=== PATIENT | female | born 1940 | race Caucasian/White ===

== ENCOUNTER 2018-01-07 14:29 | Inpatient (IN) | payer MEDICARE ==
[~2018-01-07] VITALS: Ht 162.6 cm; Wt 91.6 kg
[2018-01-07 15:37] LABS: BASOPHILS 1.3 % (0-2); EOSINOPHILS 16.6 % (0-7); HEMATOCRIT 39.1 % (36.0-48.0); HEMOGLOBIN 12.7 g/dL (12-16); IMMATURE GRANULOCYTES 0.3 % (0-5); LYMPHOCYTES 16.9 % (15-50); MCH 29.5 pg (26.0-34.0); MCHC 32.5 g/dL (31.0-37.0); MCV 90.9 fL (80.0-100.0); MEAN PLATELET VOLUME 10.5 fL (7.4-10.4); MONOCYTES 6.9 % (2-11); PLATELET COUNT 122 10x3/uL (130-400); RDW 13.2 % (11.5-14.5)
[2018-01-07 15:50] LABS: ALBUMIN 3.7 g/dL (3.4-5.0); ANION GAP 10.8 mmol/L (8-16); BILIRUBIN - TOTAL 0.22 mg/dL (0.2-1.3); CALCIUM 9.1 mg/dL (8.5-10.1); CARBON DIOXIDE 29.6 mmol/L (21.0-32.0); CREATININE - SERUM 0.8 mg/dL (0.6-1.3); POTASSIUM - SERUM 4.4 mmol/L (3.5-5.1)
[2018-01-07 15:59] VITALS: BP 123/72; BMI 34.7
[2018-01-07] MEDS ORDERED: GLUCOPHAGE500 MG PO (19:33)
[2018-01-07] MEDS ORDERED: GLIPIZIDE10 MG PO (19:34)
[2018-01-07] MEDS ORDERED: NORVASC10 MG PO (19:34)
[2018-01-07] MEDS ORDERED: TIROSINT137 MCG PO (19:35)
[2018-01-07] MEDS ORDERED: SINGULAIR10 MG PO (19:36)
[2018-01-07] MEDS ORDERED: OMEPRAZOLE20 M1 PO (19:36)
[2018-01-07] MEDS ORDERED: LIPITOR20 MG PO (19:36)
[2018-01-07] MEDS ORDERED: COZAAR25 MG PO (19:37)
[2018-01-07 20:00] VITALS: BP 104/74
[2018-01-08] VITALS: BP 122/58
[2018-01-08 04:00] VITALS: BP 112/79
[2018-01-08 05:08] LABS: BASOPHILS 0.4 % (0-2); EOSINOPHILS 0.2 % (0-7); HEMOGLOBIN 11.3 g/dL (12-16); IMMATURE GRANULOCYTES 0.2 % (0-5); MCH 29.2 pg (26.0-34.0); MCHC 32.3 g/dL (31.0-37.0); MCV 90.4 fL (80.0-100.0); MONOCYTES 4.2 % (2-11); RBC 3.87 10x6/uL (4.00-5.40); WBC 5.5 10x3/uL (4.8-10.8)
[2018-01-08 05:15] LABS: PLATELET COUNT 288 10x3/uL (130-400)
[2018-01-08 05:28] LABS: APTT 30.4 SECONDS (22.8-39.4); D-DIMER-QUANTITATIVE 0.72 ug/mLFEU (0.20-0.54)
[2018-01-08 05:42] LABS: ALBUMIN 2.9 g/dL (3.4-5.0); ALKALINE PHOSPHATASE 60 U/L (46-116); CALCIUM 8.4 mg/dL (8.5-10.1); CARBON DIOXIDE 27.3 mmol/L (21.0-32.0); CHLORIDE - SERUM 106 mmol/L (98-107); CREATININE - SERUM 0.7 mg/dL (0.6-1.3); LDH 147 U/L (81-234); POTASSIUM - SERUM 4.4 mmol/L (3.5-5.1); PRO BNP 222 pg/mL (0-450); PROTEIN - SERUM 6.1 g/dL (6.4-8.2); SODIUM 138 mmol/L (136-145); UREA NITROGEN 12 mg/dL (7-18); eGFR NON AFRICAN AMERICAN 86 mL/min (90-120)
[2018-01-08 05:47] LABS: ALT (SGPT) 10 U/L (10-68); CALC OSMOLALITY 281 mosm/kg (275-300); GLUCOSE 201 mg/dL (74-106)
[2018-01-08 08:50] VITALS: Ht 162.6 cm; Wt 91.6 kg
[2018-01-08 09:13] VITALS: BP 136/48
[2018-01-08 12:34] VITALS: BP 133/61
[2018-01-08 16:38] VITALS: BP 136/56
[2018-01-08 20:30] VITALS: BP 130/54
[2018-01-09 04:30] VITALS: BP 130/64
[2018-01-09 06:12] LABS: BASOPHILS 0.5 % (0-2); EOSINOPHILS 1.5 % (0-7); HEMATOCRIT 32.3 % (36.0-48.0); HEMOGLOBIN 10.5 g/dL (12-16); IMMATURE GRANULOCYTES 0.2 % (0-5); LYMPHOCYTES 23.6 % (15-50); MCH 29.3 pg (26.0-34.0); MCHC 32.5 g/dL (31.0-37.0); MCV 90.2 fL (80.0-100.0); MEAN PLATELET VOLUME 10.3 fL (7.4-10.4); MONOCYTES 9.8 % (2-11); NEUTROPHILS 64.4 % (40-80); PLATELET COUNT 299 10x3/uL (130-400); RBC 3.58 10x6/uL (4.00-5.40); RDW 13.1 % (11.5-14.5); WBC 6.6 10x3/uL (4.8-10.8)
[2018-01-09 06:47] LABS: ALBUMIN 2.8 g/dL (3.4-5.0); BILIRUBIN - TOTAL 0.16 mg/dL (0.2-1.3); CALCIUM 8.1 mg/dL (8.5-10.1); CARBON DIOXIDE 29.7 mmol/L (21.0-32.0); PROTEIN - SERUM 5.8 g/dL (6.4-8.2)
[2018-01-09 06:48] LABS: ANION GAP 7.8 mmol/L (8-16); CREATININE - SERUM 0.9 mg/dL (0.6-1.3); POTASSIUM - SERUM 3.5 mmol/L (3.5-5.1)
[2018-01-09 08:46] LABS: % SATURATION 31 % (15-55); IRON 70 ug/dl (35-150); TOTAL IRON BIND CAPACITY 221 ug/dl (260-445); UNSAT IRON BIND CAPACITY 151 ug/dl (150-375)
[2018-01-09 08:57] VITALS: BP 153/61
[2018-01-09 12:33] VITALS: BP 126/60
[2018-01-09 16:08] VITALS: BP 144/65
[2018-01-09 20:00] VITALS: BP 135/57
[2018-01-10] VITALS: BP 142/63
[2018-01-10 04:00] VITALS: BP 121/61
[2018-01-10 07:18] LABS: ANA REFLEX - ANTICHROMATIN ABS <0.2 AI (0.0-0.9); ANA REFLEX - CENTROMERE B ABS <0.2 AI (0.0-0.9); ANA REFLEX - DBL STRANDED DNA 1 IU/mL (0-9); ANA REFLEX - DIRECT Positive (Negative); ANA REFLEX - JO-1 AB <0.2 AI (0.0-0.9); ANA REFLEX - RNP ANTIBODIES 0.7 AI (0.0-0.9); ANA REFLEX - SCL-70 <0.2 AI (0.0-0.9); ANA REFLEX - SJOGRENS AB SSA <0.2 AI (0.0-0.9); ANA REFLEX - SJOGRENS AB SSB <0.2 AI (0.0-0.9); ANA REFLEX - SMITH AB 1.3 AI (0.0-0.9)
[2018-01-10 08:54] VITALS: BP 156/66
[2018-01-10 09:23] LABS: BASOPHILS 0 % (0-2); EOSINOPHILS 0 % (0-7); HEMATOCRIT 36.6 % (36.0-48.0); IMMATURE GRANULOCYTES 0.3 % (0-5); LYMPHOCYTES 6.3 % (15-50); MCH 29.6 pg (26.0-34.0); MCHC 32.8 g/dL (31.0-37.0); MCV 90.4 fL (80.0-100.0); MEAN PLATELET VOLUME 9.8 fL (7.4-10.4); MONOCYTES 2.4 % (2-11); PLATELET COUNT 309 10x3/uL (130-400); RBC 4.05 10x6/uL (4.00-5.40); RDW 12.8 % (11.5-14.5); WBC 7.1 10x3/uL (4.8-10.8)
[2018-01-10 09:38] LABS: ALBUMIN 3.3 g/dL (3.4-5.0); BILIRUBIN - TOTAL 0.16 mg/dL (0.2-1.3); CALCIUM 8.9 mg/dL (8.5-10.1); CARBON DIOXIDE 32.1 mmol/L (21.0-32.0); CREATININE - SERUM 0.9 mg/dL (0.6-1.3); PROTEIN - SERUM 6.9 g/dL (6.4-8.2)
[2018-01-10 09:51] LABS: ANION GAP 5.1 mmol/L (8-16); POTASSIUM - SERUM 4.2 mmol/L (3.5-5.1)
[2018-01-10 12:01] VITALS: BP 146/58
[2018-01-10 14:58] VITALS: BP 100/67
[2018-01-10 20:48] VITALS: BP 166/64
[2018-01-11 05:20] LABS: BASOPHILS 0 % (0-2); EOSINOPHILS 0 % (0-7); HEMATOCRIT 34.2 % (36.0-48.0); HEMOGLOBIN 11.1 g/dL (12-16); IMMATURE GRANULOCYTES 0.3 % (0-5); LYMPHOCYTES 5.9 % (15-50); MCH 29.4 pg (26.0-34.0); MCHC 32.5 g/dL (31.0-37.0); MCV 90.7 fL (80.0-100.0); MEAN PLATELET VOLUME 10.7 fL (7.4-10.4); NEUTROPHILS 90.8 % (40-80); PLATELET COUNT 281 10x3/uL (130-400); RBC 3.77 10x6/uL (4.00-5.40); WBC 6.8 10x3/uL (4.8-10.8)
[2018-01-11 05:41] LABS: ALBUMIN 2.9 g/dL (3.4-5.0); ANION GAP 9.9 mmol/L (8-16); BILIRUBIN - TOTAL 0.16 mg/dL (0.2-1.3); CALCIUM 8.4 mg/dL (8.5-10.1); CARBON DIOXIDE 29.6 mmol/L (21.0-32.0); CREATININE - SERUM 0.9 mg/dL (0.6-1.3); POTASSIUM - SERUM 4.5 mmol/L (3.5-5.1)
[2018-01-11 06:57] VITALS: BP 150/75
[2018-01-11 08:03] VITALS: BP 152/62
[2018-01-11 11:20] VITALS: BP 141/69
[2018-01-11 15:22] VITALS: BP 144/71
[2018-01-11 20:10] VITALS: BP 152/56
[2018-01-12 01:10] VITALS: BP 140/66
[2018-01-12 05:19] LABS: IMMUNOGLOBULIN E 164 IU/mL (0-100)
[2018-01-12 05:20] VITALS: BP 153/66
[2018-01-12] MEDS ORDERED: PULMICORT0.5 MG/21 UPD (07:51)
[2018-01-12] MEDS ORDERED: BROVANA15 MCG/2 M INH (07:51)
[2018-01-12] MEDS ORDERED: IPRAT-ALBUT 0.5-3 ML UPD (07:52)
[2018-01-12] MEDS ORDERED: OMNICEF300 MG PO (07:52)
[2018-01-12] MEDS ORDERED: MEDROL DOSE PACK4 MG PO (07:52)
[2018-01-12 08:15] VITALS: BP 129/65
[2018-01-12] MEDS ORDERED: PULMICORT FLEX90 MCG INH (10:29)
== END 2018-01-12 11:13 | disposition home health service (06) | DRG 202 ==
LOC: D.SDCHOLD 14:29 → D.M2 14:29
PROVIDERS: Family Medicine; Internal Medicine Pulmonary Disease
DX: J20.9 Acute bronchitis, unspecified (principal); J44.1 Chronic obstructive pulmonary disease with (acute) exacerbation; M35.1 Other overlap syndromes; J98.11 Atelectasis; J44.0 Chronic obstructive pulmonary disease with (acute) lower respiratory infection; J30.9 Allergic rhinitis, unspecified; D69.6 Thrombocytopenia, unspecified; E03.9 Hypothyroidism, unspecified; E78.5 Hyperlipidemia, unspecified; I11.0 Hypertensive heart disease with heart failure; I50.9 Heart failure, unspecified; K21.9 Gastro-esophageal reflux disease without esophagitis; E11.9 Type 2 diabetes mellitus without complications

== ENCOUNTER 2018-02-16 10:20 | Inpatient (IN) | payer MEDICARE ==
[~2018-02-16] VITALS: Ht 162.6 cm; Wt 92.5 kg
--- NOTE | ~2018-02-16 | DS ---
PATIENT:MARYBETH GEE :44 MEDICAL RECORD: [id number] DISCHARGE SUMMARY ADMISSION DATE: 02/16/18 DISCHARGE DATE: 02/20/18 DATE OF ADMISSION: 02/16/2018 DATE OF DISCHARGE: 02/20/2018 ADMISSION DIAGNOSES: Exacerbation of COPD, chest pain, diabetes mellitus, and hypothyroidism. DISCHARGE DIAGNOSES: Exacerbation of COPD, chest pain, diabetes mellitus, and hypothyroidism. CONSULTS: 1. Guido Wong MD, cardiology. 2. Sony Nathan MD, pulmonology. HOSPITAL COURSE: The patient was admitted with the above. Cardiology consulted. With symptoms and findings, underwent cardiac catheterization, which showed no significant disease and cleared by cardiology. With her exacerbation of COPD, pulmonology consulted. The patient was started on IV prednisone and switched to oral tapered prednisone. She is feeling much better. Inhalers adjusted. Medications added. Cleared for discharge by pulmonology. The patient is ready to go home. PHYSICAL EXAMINATION: VITAL SIGNS: On discharge, temperature 97.5, blood pressure 133/63, heart rate 76, respirations 18, and O2 sat is 96%. GENERAL: Alert, oriented, and in no acute distress. HEART: Regular rate and rhythm. LUNGS: Clear. ABDOMEN: Soft and nontender. Bowel sounds in all 4 quadrants. EXTREMITIES: Present times 4. NEUROLOGIC: Intact. SKIN: Warm and dry. No rash. LABORATORY DATA: Chemistry; sodium 138, potassium 4.6, chloride 105, bicarb 30, BUN 16, and creatinine 0.9. The patient was discharged to home in significantly improved condition. MEDICATIONS: Per med rec. She will follow up with Dr. Villalba in the clinic this week. See chart for further details. TRANSINT:[id number] Voice Confirmation ID: [id number] DOCUMENT ID: [id number] DISCHARGE SUMMARY REPORT [id number] MARYBETH GEE KOREY BACH DO at 1429 CC: [id number] DICTATION DATE: 02/20/18 1253 END TRIMMER: 02/20/18 1359 DIS IN 02/20/18 [place] [address]
--- NOTE | ~2018-02-16 | HEMODYNAMI ---
PATIENT:MARYBETH GEE MEDICAL RECORD: [id number] : 44 LOCATION:D. D.2102 ADMISSION DATE: 02/16/18 Generatedon:02/17/20188:30 Patient name: MARYBETH GEE Patient #: [id number] SSN: DO B: 1940 Date of study: 02/17/2018 Page: Of Hemodynamic Procedure Report Patient Data Patient Demographics Procedure consent was obtained First Name: MARYBETH Gender: Female Last Name: GERARD : 1940 [facility] Initial: WINTER Age: 77 year(s) Patient #: [id number] Race: Unknown Additional ID: [id number] Contact details [address]: [address] [place] [address] State: [place] City: [place] Zip code: [address] Past Medical History Allergies: No known allergies Admission Admission Data Admission Date: 02/16/2018 Admission Time: 10:20 Admit Source: Other Room #: D.2102 Lab Results Lab Result Date: 02/17/2018 Lab Result Time: 0:00 Biochemistry Name Units Result Min Max BUN mg/dl 14 --(--*-)-- 7 18 Creatinine mg/dl 0.7 --(*---)-- 0.6 1.3 CBC Name Units Result Min Max Hemoglobin g/dl 12.8 -*(----)-- 13.5 17.5 Procedure Procedure Types Cath Procedure Diagnostic Procedure [facility] w/Coronaries Procedure Description Procedure Date Procedure Date: 02/17/2018 Procedure Start Time: 8:15 Procedure End Time: 8:26 Procedure Staff Name Function Guido Wong MD Performing Physician Vincent Rosado RN Nurse Russ Santiago RT Monitor Becka Jung RT Scrub Procedure Data Cath Procedure Fluoroscopy Diagnostic fluoroscopy Total fluoroscopy Time: 1.7 time: 1.7 min min Diagnostic fluoroscopy Total fluoroscopy dose: 447 dose: 447 mGy mGy Contrast Material Contrast Material Type Amount (ml) Isovue 300 54 Entry Location Entry Primary Successful Side Size Upsize Upsize Entry Closure Succes sful Closure Location (Fr) 1 (Fr) 2 (Fr) Remarks Device Remarks Femoral Right 5 Fr Exoseal artery Diagnostic catheters Device Type Used For End Catheter Placement MULTIPACK JL 4.0 5Fr Left Coronary catheter Angiography MULTIPACK 3DRC 5Fr Right Coronary catheter Angiography MULTIPACK Pigtail 5 Fr LV Angiography catheter Procedure Complications No complications Procedure Medications Medication Administration Route Dosage Oxygen etCO2 Nasal cannula 2 l/min Lidocaine 2% added to field 20 Heparin Flush Bag added to field 2 bags (1000units/500ml NS) 0.9% NaCl I.V. 100 ml/hr Versed I.V. 1 mg Fentanyl I.V. 50 mcg Versed I.V. 1 mg Fentanyl I.V. 50 mcg Hemodynamics Rest HGB: 12.8 (g/dl) Heart Rate: 71 (bpm) Pressure Samples Time Site Value (mmHg) Purpose Heart Use Rate(bpm) 8:22 LV 115/-7,10 EDP 77 8:23 AO 116/49(76) Pullback 74 8:23 LV 119/-4,12 Pullback 74 Gradients Valve Time Site 1 Site 2 Mean SEP/DFP Peak To Heart Use (mmHg) (sec/min) Peak Rate (mmHg) (bpm) Aortic 8:23 LV AO 9 22 3 74 119/-4,12 116/49(76) Calculations Valve P-P Mean Valve Index Valve Source Name Gradient Area Flow (cm2) Aortic 3 9 3 9 Snapshots Pre Cath Intra NCS Post Cath Vital Signs Time Heart Resp SPO2 etCO2 NIBP Rhythm Pain Sedation Rate (ipm) (%) (mmHg) (mmHg) Status Level (bpm) 8:09:49 72 14 95 0 142/68(0) NSR 0 (11) 10(A) , No pain 8:14:48 71 16 96 0 128/66(0) NSR 0 (11) 10(A) , No pain 8:16:51 72 14 96 0 132/57(0) NSR 0 (11) 9(A) , No pain 8:21:50 76 15 96 0 124/62(0) NSR 0 (11) 9(A) , No pain 8:23:53 74 16 96 2.2 116/58(0) NSR 0 (11) 10(A) , No pain Medications Time Medication Route Dose Verified Delivered Reason Notes Effe ctiveness by by 8:06:24 Oxygen etCO2 2 Guido Buffie used for Nasal l/min Marvin Rosado RN procedure cannula 8:06:30 Lidocaine 2% added 20ml Guido Guido for local to vial Marvin Wong MD anesthetic field 8:06:39 Heparin Flush added 2 Guido Guido used for Bag to bags Marvin Wong MD procedure (1000units/500ml field NS) 8:06:49 0.9% NaCl I.V. 100 Guido Buffie Per ml/hr Marvin Rosado RN physician 8:12:11 Versed I.V. 1 mg Guido Buffie for Marvin Rosado RN sedation 8:12:17 Fentanyl I.V. 50 Guido Buffie for mcg Marvin Rosado RN sedation 8:18:26 Versed I.V. 1 mg Guido Buffie for Marvin Rosado RN sedation 8:18:29 Fentanyl I.V. 50 Guido Buffie for mcg Marvin Rosado RN sedation Procedure Log Time Note 7:35:27 Admit Source: Other 7:36:22 Diagnostic Cath status Elective 7:36:40 Russ Suit RT(R) sent for patient. Start room use. 7:40:32 Lab Result : Hemoglobin 12.8 g/dl 7:40:32 Lab Result : Creatinine 0.7 mg/dl 7:40:32 Lab Result : BUN 14 mg/dl 7:40:35 Lab results completed and on chart. 7:50:56 Patient received from Med II to CCL 1 Alert and oriented. Tansferred to table in Supine position. 7:50:58 Signed procedure consent form obtained from patient. 7:51:02 Warm blankets applied, and fernando hugger turned on for patient comfort. 7:51:02 Correct patient and procedure confirmed by team. 7:51:03 ECG and BP/O2 sat monitors applied to patient. 8:06:24 Oxygen 2 l/min etCO2 Nasal cannula was administered by Vincent Rosado RN; used for procedure; 8:06:30 Lidocaine 2% 20ml vial added to field was administered by Guido Wong MD; for local anesthetic; 8:06:37 Vital chart was started 8:06:39 Heparin Flush Bag (1000units/500ml NS) 2 bags added to field was administered by Guido Wong MD; used for procedure; 8:06:49 0.9% NaCl 100 ml/hr I.V. was administered by Vincent Rosado RN; Per physician; 8:07:24 Baseline sample Acquired. 8:07:38 Rhythm: sinus rhythm 8:07:39 Full Disclosure recording started 8:07:53 H&P Date Dictated: 02/16/2018 Within 30 days and on chart.. 8:07:54 Pre-procedure instructions explained to patient. 8:07:54 Pre-op teaching completed and patient verbalized understanding. 8:07:56 Family unavailable. 8:09:58 Patient NPO since Midnight. 8:10:06 Patient allergic to No known allergies 8:10:09 Is the patient allergic to Iodine/contrast media? No. 8:10:16 Is patient on blood thinner?No 8:10:18 Patient diabetic? Yes. 8:10:20 If diabetic: On Metformin? Yes 8:10:23 If on Metformin: Last Dose? 02/16/2018 8:10:25 ----Pre-sedation anethsthesia assessment.---- 8:10:27 Previous problem with sedation/anesthesia? No ? 8:10:28 Snore? Yes 8:10:30 Sleep apnea? No 8:10:32 Deviated septum? No 8:10:33 Opens mouth fully? Yes 8:10:35 Sticks out tongue? Yes 8:10:40 Airway obstruction? Yes COPD 8:10:44 Dentures? Yes OUT 8:10:47 Pre procedure: right dorsailis pedis pulse 1+ Palpable, but thready & weak; easily obliterated 8:10:51 Modified Jorje's test Ulnar > 7 seconds. 8:10:55 Patient pain scale 0/10 ?. 8:11:04 IV patent on arrival in right forearm with 0.9% NaCl at 10ml/hr. 8:11:11 Right groin area was prepped with chlora-prep and draped in sterile fashion 8:11:12 Alarms reviewed by R. N. 8:11:12 Sharps counted by scrub and verified by R.N. 8:11:36 Physician arrived 8:11:37 --------ALL STOP TIME OUT------ 8:11:37 Final Timeout: patient, procedure, and site verified with staff and physician. All members of the team are in agreement. 8:11:39 Right groin site verified by team. 8:11:42 Physical assessment completed. ASA score P 2 - A patient with mild systemic disease as per Guido Wong MD. 8:11:46 Sedation plan: IV Moderate Sedation Medication:Versed, Fentanyl 8:12:11 Versed 1 mg I.V. was administered by Vincent Rosado RN; for sedation; 8:12:17 Fentanyl 50 mcg I.V. was administered by Vincent Rosado RN; for sedation; 8:14:21 Zero performed for pressure channel P1 8:14:45 Use device set Femoral Dx 8:14:47 ACIST Syringe (40135) opened to sterile field. 8:14:47 Bag Decanter (2002S) opened to sterile field. 8:14:47 Medline Cath Pack ([id number]) opened to sterile field. 8:14:48 DIAGNOSTIC WIRE .035 260cm J wire (846282) opened to sterile field. 8:14:50 ACIST Hand Control (55008) opened to sterile field. 8:14:50 ACIST Manifold (41885) opened to sterile field. 8:14:51 DIAGNOSTIC Multipack 5Fr catheter set ([id number]) opened to sterile field. 8:14:52 Tegaderm 4 x 4 (1626W) opened to sterile field. 8:14:56 SHEATH Prelude 5Fr 0.035 ([id number]-3L-46-035) opened to sterile field. 8:15:01 Procedure started. 8:15:22 Local anesthetic to right femoral artery with Lidocaine 2% by Guido Wong MD.INITIAL ACCESS ONLY 8:15:32 A 5 Fr sheath was inserted into the Right Femoral artery 8:17:31 A MULTIPACK JL 4.0 5Fr catheter was advanced over the wire and used for Left Coronary Angiography. 8:17:44 LCA angiography performed. 8:18:26 Versed 1 mg I.V. was administered by Vincent Rosado RN; for sedation; 8:18:29 Fentanyl 50 mcg I.V. was administered by Vincent Rosado RN; for sedation; 8:18:37 Catheter removed. 8:18:43 A MULTIPACK 3DRC 5Fr catheter was advanced over the wire and used for Right Coronary Angiography. 8:19:41 RCA angiography performed. 8:21:22 Catheter removed. 8:21:31 A MULTIPACK Pigtail 5 Fr catheter was advanced over the wire and used for LV Angiography. 8:21:44 LV angiography performed. 8:21:48 LV gram done using VERA 8:21:53 LV hemodynamics recorded. 8:22:44 EF : 55 % 8:23:49 Catheter exchanged over wire. 8:23:54 EXOSEAL 5Fr (EX500) opened to sterile field. 8:24:15 Contrast amount:Isovue 300 54ml. 8:24:21 Sheath removed intact; hemostasis achieved with Exoseal to the Right Femoral artery. 8:24:23 Procedure ended.(Physican Out) 8:24:36 Fluoroscopy time 01.70 minutes. 8:24:40 Fluoroscopy dose: 447 mGy 8:24:40 Flurop Dose total: 447 8:24:42 Sharps counted by scrub and verified by R.N. 8:24:43 Insertion/operative site no bleeding no hematoma. 8:24:57 Post-op/insertion site Right Radial artery dressed using a 4 x 4 and Tegaderm. 8:25:01 Post right femoral artery:stable 8:25:03 Post Procedure Pulses reassessed and unchanged 8:25:07 Post procedure rhythm: sinus rhythm 8:25:09 Post procedure instruction explained to patient.Patient verbalizes understanding. 8:25:13 Procedure and supply charges have been captured, reviewed, submitted and are correct. 8:26:08 Procedure Complication : No complications 8:26:10 Vital chart was stopped 8:26:10 See physician's report for complete and final results. 8:26:12 Report given to PCU. 8:26:21 Patient transfered to PCU with Bed. 8:26:25 Procedure ended. 8:26:25 Full Disclosure recording stopped 8:26:29 End room use (Document Last) Device Usage Item Name Manufacture Quantity Catalog Number Hospital Part Current M inimal Lot# / Charge Number Stock Stock Serial# Code ACIST Syringe Acist 1 61152 [id number] 972586 081525 2 0 (28323) [employer]lect Inc Bag Decanter Microtek 1 285030 78651 155344 5 () Medical Inc. Medline Cath Cardinal 1 [id number] 166905 44897 992307 5 BioDigital ([id number]) DIAGNOSTIC WIRE [place] 1 220655 853598 970315 821952 3 0 .035 260cm J wire (151192) ACIST Hand Acist 1 95222 077290 716078 530842 5 Control (18732) Medical Systems Inc ACIST Manifold Acist 1 65416 867791 905387 612770 5 (54460) Medical Systems Inc DIAGNOSTIC Cardinal 1 [id number] 337613 62529 765127 3 0 Multipack 5Fr Health catheter set ([id number]) Tegaderm 4 x 4 3M 1 1626W 753508 846043 002802 5 (1626W) SHEATH Prelude Merit 1 [id number] 969373 591723 942679 5 5Fr 0.035 Medical ([id number]-[id number]-05-035) MULTIPACK JL Cardinal 1 728484 5 4.0 5Fr Health catheter MULTIPACK 3DRC Cardinal 1 [id number] 5 5Fr catheter Health MULTIPACK Cardinal 1 151245 5 Pigtail 5 Fr Health catheter EXOSEAL 5Fr Cardinal 1 EX500 104562 099457 143023 1 0 (EX500) Health Signature Audit [place] Stage Time Signature Unsigned Intra-Procedure 02/17/2018 Russ Santiago RT(R) 8:30:51 AM Signatures Monitor : Russ Santiago RT Signature : Date : Time : [address] [place] [address]
[~2018-02-16 10:20] MED LIST: BROVANA15 MCG/2 M INH; COZAAR25 MG PO; GLIPIZIDE10 MG PO; GLUCOPHAGE500 MG PO; IPRAT-ALBUT 0.5-3 ML UPD; LIPITOR20 MG PO; MEDROL DOSE PACK4 MG PO; NORVASC10 MG PO; OMEPRAZOLE20 M1 PO; OMNICEF300 MG PO; PULMICORT FLEX90 MCG INH; PULMICORT0.5 MG/21 UPD; SINGULAIR10 MG PO; TIROSINT137 MCG PO
[2018-02-16] MEDS ORDERED: DEMADEX10 MG PO (10:49)
[2018-02-16 10:52] VITALS: BP 144/67; BMI 35.1
[2018-02-16 11:31] LABS: ALBUMIN 3.5 g/dL (3.4-5.0); ALKALINE PHOSPHATASE 70 U/L (46-116); ALT (SGPT) 17 U/L (10-68); BILIRUBIN - TOTAL 0.37 mg/dL (0.2-1.3); CALC OSMOLALITY 279 mosm/kg (275-300); CALCIUM 8.5 mg/dL (8.5-10.1); CARBON DIOXIDE 26.4 mmol/L (21.0-32.0); CHLORIDE - SERUM 106 mmol/L (98-107); CREATININE - SERUM 0.7 mg/dL (0.6-1.3); GLUCOSE 124 mg/dL (74-106); POTASSIUM - SERUM 4.9 mmol/L (3.5-5.1); PROTEIN - SERUM 6.7 g/dL (6.4-8.2); SODIUM 139 mmol/L (136-145); UREA NITROGEN 14 mg/dL (7-18); eGFR NON AFRICAN AMERICAN 86 mL/min (90-120)
[2018-02-16 11:42] LABS: CKMB 1.8 U/L (0.0-3.6); CREATINE KINASE 264 UL (21-215); TROPONIN-I < 0.017 ng/mL (0.000-0.060)
[2018-02-16 12:02] LABS: EOSINOPHILS 8.6 % (0-7); HEMATOCRIT 38.3 % (36.0-48.0); HEMOGLOBIN 12.8 g/dL (12-16); IMMATURE GRANULOCYTES 0.1 % (0-5); LYMPHOCYTES 18.5 % (15-50); MCH 29.6 pg (26.0-34.0); MCHC 33.4 g/dL (31.0-37.0); MCV 88.7 fL (80.0-100.0); MONOCYTES 8.5 % (2-11); NEUTROPHILS 63.3 % (40-80); PLATELET COUNT 311 10x3/uL (130-400); RBC 4.32 10x6/uL (4.00-5.40); RDW 13.1 % (11.5-14.5); WBC 6.7 10x3/uL (4.8-10.8)
[2018-02-16 14:48] VITALS: BP 144/67
[2018-02-16 17:31] LABS: CKMB 1.6 U/L (0.0-3.6); CREATINE KINASE 191 UL (21-215)
[2018-02-16 17:35] LABS: TROPONIN-I < 0.017 ng/mL (0.000-0.060)
[2018-02-16 18:43] LABS: EOSINOPHILS 11.5 % (0-7); HEMATOCRIT 37.7 % (36.0-48.0); HEMOGLOBIN 12.4 g/dL (12-16); IMMATURE GRANULOCYTES 0.1 % (0-5); LYMPHOCYTES 24.2 % (15-50); MCH 29.7 pg (26.0-34.0); MCHC 32.9 g/dL (31.0-37.0); MCV 90.2 fL (80.0-100.0); MEAN PLATELET VOLUME 10.1 fL (7.4-10.4); MONOCYTES 9.8 % (2-11); NEUTROPHILS 53.4 % (40-80); PLATELET COUNT 322 10x3/uL (130-400); RBC 4.18 10x6/uL (4.00-5.40); RDW 13.3 % (11.5-14.5); WBC 7.1 10x3/uL (4.8-10.8)
[2018-02-16 18:52] LABS: CALCIUM 8.3 mg/dL (8.5-10.1)
[2018-02-16 18:54] LABS: CREATININE - SERUM 0.9 mg/dL (0.6-1.3)
[2018-02-16 20:00] VITALS: BP 133/64
[2018-02-16 23:11] LABS: CKMB 1.5 U/L (0.0-3.6); CREATINE KINASE 185 UL (21-215)
[2018-02-16 23:12] LABS: TROPONIN-I < 0.017 ng/mL (0.000-0.060)
[2018-02-17 04:00] VITALS: BP 116/50
[2018-02-17 04:31] LABS: BASOPHILS 0.4 % (0-2); EOSINOPHILS 0.2 % (0-7); HEMATOCRIT 37.9 % (36.0-48.0); HEMOGLOBIN 12.6 g/dL (12-16); IMMATURE GRANULOCYTES 0.2 % (0-5); LYMPHOCYTES 7.4 % (15-50); MCHC 33.2 g/dL (31.0-37.0); MCV 90.2 fL (80.0-100.0); MEAN PLATELET VOLUME 10.1 fL (7.4-10.4); MONOCYTES 0.9 % (2-11); NEUTROPHILS 90.9 % (40-80); PLATELET COUNT 308 10x3/uL (130-400); RDW 13.1 % (11.5-14.5); WBC 5.6 10x3/uL (4.8-10.8)
[2018-02-17 05:00] LABS: ALBUMIN 3.2 g/dL (3.4-5.0); ANION GAP 11.3 mmol/L (8-16); BILIRUBIN - TOTAL 0.31 mg/dL (0.2-1.3); CALCIUM 8.4 mg/dL (8.5-10.1); CARBON DIOXIDE 26.8 mmol/L (21.0-32.0); CREATININE - SERUM 0.9 mg/dL (0.6-1.3); POTASSIUM - SERUM 4.1 mmol/L (3.5-5.1); PROTEIN - SERUM 6.4 g/dL (6.4-8.2)
[2018-02-17 09:12] VITALS: BP 113/53
[2018-02-17 10:37] VITALS: Ht 162.6 cm; Wt 92.5 kg
[2018-02-17 20:40] VITALS: BP 122/63
[2018-02-18 00:05] VITALS: BP 122/55
[2018-02-18 04:52] VITALS: BP 116/49
[2018-02-18 08:21] VITALS: BP 137/59
[2018-02-18 12:53] VITALS: BP 152/69
[2018-02-18 16:23] VITALS: BP 126/56
[2018-02-18 20:16] VITALS: BP 132/64
[2018-02-19 01:25] VITALS: BP 123/51
[2018-02-19 05:03] VITALS: BP 105/44
[2018-02-19 05:51] LABS: BASOPHILS 0 % (0-2); EOSINOPHILS 0 % (0-7); HEMATOCRIT 33.6 % (36.0-48.0); HEMOGLOBIN 10.9 g/dL (12-16); IMMATURE GRANULOCYTES 0.1 % (0-5); LYMPHOCYTES 6.7 % (15-50); MCH 29.4 pg (26.0-34.0); MCHC 32.4 g/dL (31.0-37.0); MCV 90.6 fL (80.0-100.0); MEAN PLATELET VOLUME 10.3 fL (7.4-10.4); MONOCYTES 2.5 % (2-11); NEUTROPHILS 90.7 % (40-80); PLATELET COUNT 283 10x3/uL (130-400); RBC 3.71 10x6/uL (4.00-5.40); RDW 13.3 % (11.5-14.5); WBC 6.7 10x3/uL (4.8-10.8)
[2018-02-19 06:27] LABS: ALBUMIN 2.8 g/dL (3.4-5.0); ANION GAP 7.7 mmol/L (8-16); BILIRUBIN - TOTAL 0.18 mg/dL (0.2-1.3); CALCIUM 8.3 mg/dL (8.5-10.1); CARBON DIOXIDE 28.9 mmol/L (21.0-32.0); CREATININE - SERUM 0.9 mg/dL (0.6-1.3); POTASSIUM - SERUM 4.6 mmol/L (3.5-5.1); PROTEIN - SERUM 5.8 g/dL (6.4-8.2)
[2018-02-19 08:41] VITALS: BP 108/72
[2018-02-19 12:39] VITALS: BP 124/55
[2018-02-19 15:52] VITALS: BP 122/65
[2018-02-19 20:01] VITALS: BP 125/53
[2018-02-20 00:45] VITALS: BP 122/57
[2018-02-20 05:40] VITALS: BP 176/65
[2018-02-20 05:55] LABS: ANION GAP 7.6 mmol/L (8-16); CALCIUM 8.1 mg/dL (8.5-10.1); CREATININE - SERUM 0.9 mg/dL (0.6-1.3); POTASSIUM - SERUM 4.6 mmol/L (3.5-5.1)
[2018-02-20 08:04] VITALS: BP 126/53
[2018-02-20 11:31] VITALS: BP 133/63
[2018-02-20] MEDS ORDERED: ISOSORBIDE MONO30 M1 PO (12:39)
[2018-02-20] MEDS ORDERED: BENZONATATE200 MG PO (12:40)
[2018-02-20] MEDS ORDERED: PREDNISONE20 MG PO (12:43)
[2018-02-20] MEDS ORDERED: BREO ELLIPTA 21 EACH INH (12:44)
== END 2018-02-20 13:59 | disposition home health service (06) | DRG 286 ==
LOC: D.M2 10:20
PROVIDERS: Family Medicine; Internal Medicine Cardiovascular Disease
PROC: B2151ZZ Fluoroscopy of Left Heart using Low Osmolar Contrast (ICD-10-PCS; 2018-02-17)
PROC: 4A023N7 Measurement of Cardiac Sampling and Pressure, Left Heart, Percutaneous Approach (ICD-10-PCS; 2018-02-17)
PROC: B2111ZZ Fluoroscopy of Multiple Coronary Arteries using Low Osmolar Contrast (ICD-10-PCS; principal; 2018-02-17 08:00)
DX: I25.10 Atherosclerotic heart disease of native coronary artery without angina pectoris (principal); J18.9 Pneumonia, unspecified organism; J44.0 Chronic obstructive pulmonary disease with (acute) lower respiratory infection; M35.1 Other overlap syndromes; J44.1 Chronic obstructive pulmonary disease with (acute) exacerbation; J20.9 Acute bronchitis, unspecified; K21.9 Gastro-esophageal reflux disease without esophagitis; D64.9 Anemia, unspecified; I10 Essential (primary) hypertension; E78.5 Hyperlipidemia, unspecified; E11.9 Type 2 diabetes mellitus without complications; J30.9 Allergic rhinitis, unspecified; E03.9 Hypothyroidism, unspecified

== ENCOUNTER 2018-05-26 11:56 | Inpatient (IN) | payer MEDICARE ==
[2018-05-26 12:55] LABS: BASOPHILS 1.2 % (0-2); HEMATOCRIT 38.4 % (36.0-48.0); HEMOGLOBIN 12.6 g/dL (12-16); IMMATURE GRANULOCYTES 0.1 % (0-5); LYMPHOCYTES 21.6 % (15-50); MCH 30.1 pg (26.0-34.0); MCHC 32.8 g/dL (31.0-37.0); MCV 91.6 fL (80.0-100.0); MEAN PLATELET VOLUME 10.3 fL (7.4-10.4); MONOCYTES 5.8 % (2-11); NEUTROPHILS 59.3 % (40-80); PLATELET COUNT 325 10x3/uL (130-400); RBC 4.19 10x6/uL (4.00-5.40); RDW 12.5 % (11.5-14.5); WBC 6.7 10x3/uL (4.8-10.8)
[2018-05-26 13:14] LABS: ALBUMIN 3.6 g/dL (3.4-5.0); ANION GAP 10.9 mmol/L (8-16); BILIRUBIN - TOTAL 0.31 mg/dL (0.2-1.3); CALCIUM 8.9 mg/dL (8.5-10.1); CREATININE - SERUM 0.9 mg/dL (0.6-1.3); POTASSIUM - SERUM 3.9 mmol/L (3.5-5.1); PROTEIN - SERUM 7.4 g/dL (6.4-8.2)
[2018-05-27 00:26] LABS: APPEARANCE CLEAR (CLEAR); BILIRUBIN NEGATIVE (NEGATIVE); COLOR YELLOW (YELLOW); GLUCOSE NEGATIVE (NEGATIVE); KETONE NEGATIVE (NEGATIVE); NITRITE NEGATIVE (NEGATIVE); PROTEIN NEGATIVE (NEGATIVE); SPECIFIC GRAVITY 1.015 (1.005-1.020); UROBILINOGEN NORMAL (NORMAL)
[2018-05-27 03:45] LABS: BASOPHILS 0.2 % (0-2); EOSINOPHILS 0 % (0-7); HEMATOCRIT 35.6 % (36.0-48.0); HEMOGLOBIN 11.3 g/dL (12-16); IMMATURE GRANULOCYTES 0.2 % (0-5); LYMPHOCYTES 10.6 % (15-50); MCH 29.2 pg (26.0-34.0); MCHC 31.7 g/dL (31.0-37.0); MEAN PLATELET VOLUME 10.2 fL (7.4-10.4); MONOCYTES 3.1 % (2-11); NEUTROPHILS 85.9 % (40-80); PLATELET COUNT 279 10x3/uL (130-400); RBC 3.87 10x6/uL (4.00-5.40); WBC 5.1 10x3/uL (4.8-10.8)
[2018-05-27 03:58] LABS: ALBUMIN 2.8 g/dL (3.4-5.0); BILIRUBIN - TOTAL 0.15 mg/dL (0.2-1.3); CALCIUM 8.2 mg/dL (8.5-10.1); CARBON DIOXIDE 30.7 mmol/L (21.0-32.0); CREATININE - SERUM 0.8 mg/dL (0.6-1.3); MAGNESIUM - SERUM 1.9 mg/dL (1.8-2.4); PHOSPHOROUS 3.8 mg/dL (2.5-4.9); PROTEIN - SERUM 6.2 g/dL (6.4-8.2)
[2018-05-27 04:04] LABS: ANION GAP 8.8 mmol/L (8-16); POTASSIUM - SERUM 4.5 mmol/L (3.5-5.1)
[2018-05-28 06:06] LABS: BASOPHILS 0 % (0-2); EOSINOPHILS 0 % (0-7); HEMATOCRIT 34.6 % (36.0-48.0); HEMOGLOBIN 10.9 g/dL (12-16); IMMATURE GRANULOCYTES 0.1 % (0-5); MCH 28.8 pg (26.0-34.0); MCHC 31.5 g/dL (31.0-37.0); MCV 91.5 fL (80.0-100.0); NEUTROPHILS 85.9 % (40-80); PLATELET COUNT 317 10x3/uL (130-400); RBC 3.78 10x6/uL (4.00-5.40); RDW 12.4 % (11.5-14.5)
[2018-05-28 06:10] LABS: ANION GAP 15.3 mmol/L (8-16); CALCIUM 8.5 mg/dL (8.5-10.1); CARBON DIOXIDE 24.8 mmol/L (21.0-32.0); POTASSIUM - SERUM 4.1 mmol/L (3.5-5.1)
[2018-05-29 04:43] LABS: BASOPHILS 0 % (0-2); EOSINOPHILS 0 % (0-7); HEMATOCRIT 33.7 % (36.0-48.0); HEMOGLOBIN 10.8 g/dL (12-16); IMMATURE GRANULOCYTES 0.3 % (0-5); LYMPHOCYTES 7.3 % (15-50); MCH 29.3 pg (26.0-34.0); MCV 91.6 fL (80.0-100.0); MEAN PLATELET VOLUME 10.7 fL (7.4-10.4); MONOCYTES 6.5 % (2-11); NEUTROPHILS 85.9 % (40-80); PLATELET COUNT 287 10x3/uL (130-400); RBC 3.68 10x6/uL (4.00-5.40); RDW 12.4 % (11.5-14.5)
[2018-05-29 04:52] LABS: ANION GAP 12.3 mmol/L (8-16); CALCIUM 8.8 mg/dL (8.5-10.1); CREATININE - SERUM 0.9 mg/dL (0.6-1.3); POTASSIUM - SERUM 4.3 mmol/L (3.5-5.1)
[2018-05-30 04:21] LABS: BASOPHILS 0 % (0-2); EOSINOPHILS 0 % (0-7); HEMATOCRIT 33.7 % (36.0-48.0); HEMOGLOBIN 11.1 g/dL (12-16); IMMATURE GRANULOCYTES 0.5 % (0-5); LYMPHOCYTES 8.1 % (15-50); MCH 29.9 pg (26.0-34.0); MCHC 32.9 g/dL (31.0-37.0); MCV 90.8 fL (80.0-100.0); MEAN PLATELET VOLUME 10.2 fL (7.4-10.4); MONOCYTES 7.5 % (2-11); NEUTROPHILS 83.9 % (40-80); PLATELET COUNT 282 10x3/uL (130-400); RBC 3.71 10x6/uL (4.00-5.40); RDW 12.6 % (11.5-14.5); WBC 7.3 10x3/uL (4.8-10.8)
[2018-05-30 04:36] LABS: CALCIUM 8.1 mg/dL (8.5-10.1); CARBON DIOXIDE 26.3 mmol/L (21.0-32.0); CREATININE - SERUM 0.9 mg/dL (0.6-1.3); POTASSIUM - SERUM 4.3 mmol/L (3.5-5.1)
== END 2018-05-30 14:58 | disposition home or self-care (01) | DRG 190 ==
LOC: D.M2 11:56
PROVIDERS: Family Medicine; Internal Medicine Nephrology
DX: J44.1 Chronic obstructive pulmonary disease with (acute) exacerbation (principal); I50.33 Acute on chronic diastolic (congestive) heart failure; N17.9 Acute kidney failure, unspecified; J98.11 Atelectasis; I11.0 Hypertensive heart disease with heart failure; E11.9 Type 2 diabetes mellitus without complications; E78.5 Hyperlipidemia, unspecified; E03.9 Hypothyroidism, unspecified; K21.9 Gastro-esophageal reflux disease without esophagitis

== ENCOUNTER → 2018-07-08 11:32 | Outpatient (CLI) | payer MEDICARE ==
[2018-05-27 12:31] VITALS: BMI 34.6
[~2018-07-08 11:32] MED LIST changes: +BENZONATATE200 MG PO; +BREO ELLIPTA 21 EACH INH; +DEMADEX10 MG PO; +ISOSORBIDE MONO30 M1 PO; +LEVOFLOXACIN500 MG PO; +MUCINEX DM ER1 EAC1 PO; +PREDNISONE10 MG PO; +PREDNISONE20 MG PO; +PROTONIX40 MG PO
== END | disposition home or self-care (01) ==
LOC: D.RT 11:32
DX: J44.1 Chronic obstructive pulmonary disease with (acute) exacerbation (principal); J20.9 Acute bronchitis, unspecified

== ENCOUNTER 2018-09-15 09:22 | Inpatient (IN) | payer MEDICARE ==
[~2018-09-15] VITALS: Ht 162.6 cm; Wt 101.6 kg
--- NOTE | 2018-09-15 10:15 | NUR ---
RECEIVED PT FROM DR. LARSON'S OFFICE. ADMITTED WITH COPD/PNEUMONIA/LEFT KNEE PAIN. VITALS STABLE, EXCEPT O2 SAT 89% RA, APPLIED 2L O2 NC ON PT, O2 SAT 95%. IV SITED TO LEFT WRIST X1, 22GA SL. NO C/O PAIN. NO S/S OF ACUTE DISTRESS NOTED. PT ALERT AND ORIENTED. FAMILY AT BEDSIDE. PT FALL RISK, 3. KALIA ALARM ON AND WORKING. YELLOW GOWNS UNAVAILABLE AT THIS TIME. PT DENIES ANYTHING FURTHER AT THIS TIME. CALL LIGHT IN REACH. WILL CONTINUE TO MONITOR.
[2018-09-15 10:22] VITALS: BP 112/55
[2018-09-15 11:49] LABS: BASOPHILS 1.4 % (0-2); EOSINOPHILS 13.9 % (0-7); HEMATOCRIT 36.8 % (36.0-48.0); IMMATURE GRANULOCYTES 0.3 % (0-5); LYMPHOCYTES 16.9 % (15-50); MCH 29.1 pg (26.0-34.0); MCHC 32.6 g/dL (31.0-37.0); MCV 89.1 fL (80.0-100.0); MEAN PLATELET VOLUME 9.8 fL (7.4-10.4); NEUTROPHILS 60.5 % (40-80); PLATELET COUNT 285 10x3/uL (130-400); RBC 4.13 10x6/uL (4.00-5.40); RDW 12.8 % (11.5-14.5); WBC 7.9 10x3/uL (4.8-10.8)
[2018-09-15 12:18] LABS: ALBUMIN 3.2 g/dL (3.4-5.0); ANION GAP 12.2 mmol/L (8-16); BILIRUBIN - TOTAL 0.49 mg/dL (0.2-1.3); CALCIUM 8.6 mg/dL (8.5-10.1); CARBON DIOXIDE 30.4 mmol/L (21.0-32.0); CREATININE - SERUM 1.2 mg/dL (0.6-1.3); POTASSIUM - SERUM 3.6 mmol/L (3.5-5.1); PROTEIN - SERUM 6.7 g/dL (6.4-8.2)
[2018-09-15 12:22] VITALS: BP 107/58
[2018-09-15 17:53] VITALS: BP 110/67
[2018-09-15 18:13] LABS: APPEARANCE CLEAR (CLEAR); COLOR YELLOW (YELLOW)
[2018-09-15 18:14] LABS: BILIRUBIN NEGATIVE (NEGATIVE); GLUCOSE NEGATIVE (NEGATIVE); KETONE NEGATIVE (NEGATIVE); NITRITE NEGATIVE (NEGATIVE); PROTEIN NEGATIVE (NEGATIVE); SPECIFIC GRAVITY 1.015 (1.005-1.020); UROBILINOGEN NORMAL (NORMAL)
[2018-09-15 18:15] VITALS: BP 112/55; BMI 38.5
--- NOTE | 2018-09-15 18:25 | NUR ---
PT RESTING IN BED. NO C/O PAIN. NO S/S OF ACUTE DISTRESS NOTED. PT DENIES ANYTHING FURTHER AT THIS TIME. CALL LIGHT IN REACH. KALIA ALARM ON. WILL CONTINUE TO MONITOR.
[2018-09-15 21:57] VITALS: BP 128/63
[2018-09-16 01:29] VITALS: BP 127/60
[2018-09-16 05:01] LABS: BASOPHILS 0.2 % (0-2); EOSINOPHILS 0 % (0-7); HEMATOCRIT 37.4 % (36.0-48.0); HEMOGLOBIN 12.3 g/dL (12-16); IMMATURE GRANULOCYTES 0.2 % (0-5); LYMPHOCYTES 8.2 % (15-50); MCH 29.1 pg (26.0-34.0); MCHC 32.9 g/dL (31.0-37.0); MCV 88.4 fL (80.0-100.0); MEAN PLATELET VOLUME 10.6 fL (7.4-10.4); MONOCYTES 0.2 % (2-11); NEUTROPHILS 91.2 % (40-80); PLATELET COUNT 301 10x3/uL (130-400); RBC 4.23 10x6/uL (4.00-5.40); RDW 12.5 % (11.5-14.5); WBC 5.1 10x3/uL (4.8-10.8)
[2018-09-16 05:05] VITALS: BP 122/81
--- NOTE | 2018-09-16 08:05 | NUR ---
ALERT AND ORIENTED X 3 NON-PRODUCTIVE COUGH NOTED. EXP. WHEEZES X 4 ANTERIOR. CAP REFILL <3 SEC.DENIES ANY PAIN OR DISCOMFORT. ENCOURAGED TO USE CALL LIGHT FOR ASSIST.THEMETRY INTACT. O2 2L N/C
[2018-09-16 09:30] VITALS: BP 106/47
[2018-09-16 11:39] VITALS: Ht 162.6 cm; Wt 101.6 kg
[2018-09-16 13:31] VITALS: BP 106/47
[2018-09-16 17:16] VITALS: BP 132/53
[2018-09-16 19:00] VITALS: BP 142/55
--- NOTE | 2018-09-16 22:00 | NUR ---
PT ALERT & ORIENTED. GAVE SCHEDULED MEDS. PT AMBULATED TO BATHROOM INDEPENDENTLY TO VOID. COMPLETE ASSESSMENT PER FLOW-SHEET. NO OTHER NEEDS. WILL CONTINUE TO MONITOR.
[2018-09-17] VITALS: BP 138/59
[2018-09-17 03:00] VITALS: BP 123/59
[2018-09-17 08:03] VITALS: BP 121/59
--- NOTE | 2018-09-17 09:30 | NUR ---
ALERT AND ORIENTED X3 WITH EXPIRATORY WHEEZES X4. 2O 2 LITERS N/C. DENIES ANY PAIN OR DISCOMFORT WITH S/L INTACT TO LT. WRIST. ENCOURAGED TO USE CALL LIGHT FOR ASSIST.
[2018-09-17 12:10] VITALS: BP 138/92
[2018-09-17 16:23] VITALS: BP 124/49
--- NOTE | 2018-09-17 22:20 | NUR ---
PT ALERT & ORIENTED. GAVE SCHEDULED MEDS. COMPLETE ASSESSMENT PER FLOW-SHEET. FSBS 247 - GAVE 4 UNITS PER SS. NO OTHER NEEDS. WILL CONTINUE TO MONITOR.
[2018-09-18] VITALS: BP 114/69; BP 131/61
[2018-09-18 03:00] VITALS: BP 110/58
[2018-09-18 05:37] LABS: BASOPHILS 0 % (0-2); EOSINOPHILS 0 % (0-7); HEMATOCRIT 37.2 % (36.0-48.0); IMMATURE GRANULOCYTES 0.2 % (0-5); LYMPHOCYTES 4.2 % (15-50); MCH 28.9 pg (26.0-34.0); MCHC 32.3 g/dL (31.0-37.0); MCV 89.6 fL (80.0-100.0); MEAN PLATELET VOLUME 10.9 fL (7.4-10.4); MONOCYTES 2.4 % (2-11); NEUTROPHILS 93.2 % (40-80); PLATELET COUNT 300 10x3/uL (130-400); RBC 4.15 10x6/uL (4.00-5.40); RDW 12.9 % (11.5-14.5); WBC 9.8 10x3/uL (4.8-10.8)
[2018-09-18 05:58] LABS: ANION GAP 13.2 mmol/L (8-16); CALCIUM 8.2 mg/dL (8.5-10.1); CARBON DIOXIDE 27.8 mmol/L (21.0-32.0); CREATININE - SERUM 1.1 mg/dL (0.6-1.3)
--- NOTE | 2018-09-18 08:17 | NUR ---
PT ALERT X 4. BREATH SOUNDS DIMINISHED TO RLL. 2L O2 PER NC. TELEMETRY IN PLACE. PT REPORTING PAIN OF 8/10 TO LEFT POSTERIOR SHOULDER AND SIDE, WILL MONITOR. IV TO LEFT WRIST, PATENT, DRESSING CLEAN DRY AND INTACT. BED LOW, CALL LIGHT IN REACH, NO OTHER NEEDS AT THIS TIME.
[2018-09-18 08:35] VITALS: BP 162/69
[2018-09-18 11:28] LABS: CKMB 0.9 U/L (0.0-3.6); CREATINE KINASE 110 UL (21-215)
[2018-09-18 11:30] LABS: TROPONIN-I < 0.017 ng/mL (0.000-0.060)
[2018-09-18 12:25] VITALS: BP 119/75
[2018-09-18 17:10] VITALS: BP 124/52
[2018-09-18 20:00] VITALS: BP 123/50
--- NOTE | 2018-09-18 22:30 | NUR ---
PT ALERT & ORIENTED. GAVE SCHEDULED MEDS. FSBS 150 - NO INSULIN PER SS. COMPLETE ASSESSMENT PER FLOW-SHEET. NO OTHER NEEDS. WILL CONTINUE TO MONITOR.
[2018-09-19 03:00] VITALS: BP 128/73
[2018-09-19 05:12] LABS: BASOPHILS 0 % (0-2); EOSINOPHILS 0.1 % (0-7); HEMATOCRIT 35.2 % (36.0-48.0); HEMOGLOBIN 11.3 g/dL (12-16); IMMATURE GRANULOCYTES 0.3 % (0-5); MCH 28.8 pg (26.0-34.0); MCHC 32.1 g/dL (31.0-37.0); MCV 89.6 fL (80.0-100.0); MEAN PLATELET VOLUME 10.5 fL (7.4-10.4); MONOCYTES 8.2 % (2-11); NEUTROPHILS 71.4 % (40-80); PLATELET COUNT 264 10x3/uL (130-400); RBC 3.93 10x6/uL (4.00-5.40); RDW 12.7 % (11.5-14.5); WBC 8.8 10x3/uL (4.8-10.8)
[2018-09-19 05:26] LABS: ANION GAP 9.3 mmol/L (8-16); CALCIUM 7.9 mg/dL (8.5-10.1); CARBON DIOXIDE 31.1 mmol/L (21.0-32.0); POTASSIUM - SERUM 3.4 mmol/L (3.5-5.1)
--- NOTE | 2018-09-19 07:47 | NUR ---
AWAKE AND ALERT. ORIENTED X3. NO C/O AT THIS TIME. LUNGS HAVE INSPIRATORY WHEEZES IN LEFT UPPER LOBES AND DIMINISHED IN BILATERAL LOWER LOBES. PRODUCTIVE COUGH REPORTEED WITH WHITISH/YELLOW SPUTUM. SL TO LEFT WRIST IS PATENT WITHOUT REDNESS AT INSERTION SITE. DENIES NEEDS.
[2018-09-19 08:44] VITALS: BP 121/57
--- NOTE | 2018-09-19 10:03 | NUR ---
ATE ALMOST ALL OF BREAKFAST. TOOK AM MEDS WITHOUT DIFFICULTY. DENIES NEEDS.
--- NOTE | 2018-09-19 10:52 | NUR ---
C/O PAIN TO LEFT BACK LEVEL 8. GIVEN 650MG TYLENOL PO FOR SAME. HEAT APPLIED TO AREA WELL.
[2018-09-19] MEDS ORDERED: FLUTICASONE PRO16 GM NASAL (11:14)
[2018-09-19] MEDS ORDERED: FLORAJEN3 CAPS460 MG PO (11:14)
[2018-09-19] MEDS ORDERED: PREDNISONE10 MG PO (11:15)
[2018-09-19] MEDS ORDERED: OMNICEF300 MG PO (11:15)
[2018-09-19] MEDS ORDERED: LEVOFLOXACIN500 MG PO (11:17)
--- NOTE | 2018-09-19 12:00 | NUR ---
FSBS 138. NO COVERAGE REQUIRED.
--- NOTE | 2018-09-19 12:17 | MORECARE ---
CASE MANAGEMENT DISCHARGE SUMMARY PATIENT: MARYBETH GEE WINTER UNIT: [id number] ADM DATE: 09/15/18 AGE: 78 : 42 SEX: F ROOM/BED: D.2211 AUTHOR: DREW VASQUEZ PHYSICIAN: REFERRING PHYSICIAN: LEONARDA DEVLIN MD DATE OF SERVICE: 09/19/18 Discharge Plan Patient Name: MARYBETH GEE [facility] [facility] 1940 Planned Disposition: Home or Self Care Anticipated Discharge Date: Discharge Date: Expected LOS: Initial Reviewer: [email or web address] Initial Review Date: 09/15/2018 Generated: 09/19/18 1:17 pm DCPIA - Discharge Planning Initial Assessment Updated by [email or web address]: Hilda Pena on 09/19/18 12:16 pm * Is the patient Alert and Oriented? Yes * How many steps to enter\exit or inside your home? * PCP NEO * Pharmacy [facility] [place] * Preadmission Environment Home with Family * ADLs Independent * Equipment Cane Nebulizer Rolling Walker * List name and contact numbers for known caregivers / representatives who currently or will assist patient after discharge: RAYMOND [phone] * Verbal permission to speak to the caregivers and representatives has been obtained from the patient. N/A * Community resources currently utilized None * Additional services required to return to the preadmission environment? No * Can the patient safely return to the preadmission environment? Yes * Has this patient been hospitalized within the prior 30 days at any hospital? No Patient Name: MARYBETH GEE Page [id number] at 1217 All edits/amendments must be made on the electronic document DICTATION DATE: 09/19/18 1217 SUMMER ASSOCIATE: ERIKA 09/19/18 1217 RPT#: [id number] DC DATE: STATUS: ADM IN [facility] [address] [place] [address] END OF REPORT
--- NOTE | 2018-09-19 12:27 | MORECARE ---
CASE MANAGEMENT DISCHARGE SUMMARY PATIENT: MARYBETH GEE UNIT: [id number] ADM DATE: 09/15/18 AGE: 78 : 42 SEX: F ROOM/BED: D.2211 AUTHOR: CHRISTINA,DOC PHYSICIAN: REFERRING PHYSICIAN: LEONARDA DEVLIN MD DATE OF SERVICE: 09/19/18 Discharge Plan Patient Name: MARYBETH GEE Facility: [facility]:[place] : 1940 Planned Disposition: Home or Self Care Anticipated Discharge Date: Discharge Date: Expected LOS: Initial Reviewer: [email or web address] Initial Review Date: 09/15/2018 Generated: 09/19/18 1:26 pm DCP- Discharge Planning Updated by [email or web address]: Hilda Pena on 09/19/18 11:[address] Patient Name: MARYBETH GEE Admission Status: Elective Accout number: [id number] Admission Date: 09-15-2018 : 1940 Admission Diagnosis:ACUTE BRONCHITIS, UNSPECIFIED Attending: LEONARDA DEVLIN Current LOS: 4 Anticipated DC Date: Planned Disposition: Home or Self Care Primary Insurance: [facility] [employer] Discharge Planning Comments: CM met with patient to assess discharge planning needs. Patient lives independently at home with her adult child where she plans to return at discharge today. Her daughter will be the one to drive her home. She did not want home health. She states her home is safe to return cane, nebulizer, and walker at home. [facility] served and explained and she signed the refusal form. CM will continue to follow and assist with dc planning as needed. Electrical Appliance Mechanic: Hilda Pena DCPIA - Discharge Planning Initial Assessment Updated by [email or web address]: Hilda Pena on 09/19/18 12:16 pm * Is the patient Alert and Oriented? Yes * How many steps to enter\exit or inside your home? * PCP NEO * Pharmacy [facility] [place] * Preadmission Environment Home with Family * ADLs Independent * Equipment Cane Nebulizer Rolling Walker * List name and contact numbers for known caregivers / representatives who currently or will assist patient after discharge: RAYMOND [phone] * Verbal permission to speak to the caregivers and representatives has been obtained from the patient. N/A * Community resources currently utilized None * Additional services required to return to the preadmission environment? No * Can the patient safely return to the preadmission environment? Yes * Has this patient been hospitalized within the prior 30 days at any hospital? No Last DP export: 09/19/18 11:17 am Patient Name: MARYBETH GEE Page [phone] at 1227 All edits/amendments must be made on the electronic document DICTATION DATE: 09/19/18 1226 TECHNICIAN'S HELPER: ERIKA 09/19/18 1226 RPT#: [id number] DC DATE: STATUS: ADM IN [facility] [address] [place] [address] END OF REPORT
[2018-09-19 13:15] VITALS: BP 123/55
--- NOTE | 2018-09-19 14:55 | NUR ---
DISCHARGED INSTRUCTIONS GIVEN BOTH VERBALLY AND WRITTEN. ALL QUESTIONS ANSWERED. PATIENT VERBALIZED UNDERSTANDING OF SAME. IV TO RIGHT FOREARM D/C WITH CATHETER INTACT. WAITING ON RIDE TO D/C HOME.
--- NOTE | 2018-09-19 15:36 | NUR ---
DISCHARGED TO HOME AMBULATORY WITH DAUGHTER. ALL BELONGINGS WITH PATIENT.
== END 2018-09-19 15:37 | disposition home or self-care (01) | DRG 202 ==
LOC: D.SDCHOLD 09:22 → D.MS 09:22
PROVIDERS: Family Medicine; ADMIT Internal Medicine Nephrology; ATTEND Internal Medicine Nephrology
DX: J20.9 Acute bronchitis, unspecified (principal); J44.1 Chronic obstructive pulmonary disease with (acute) exacerbation; K21.9 Gastro-esophageal reflux disease without esophagitis; M17.32 Unilateral post-traumatic osteoarthritis, left knee; E11.9 Type 2 diabetes mellitus without complications; I11.0 Hypertensive heart disease with heart failure; I50.9 Heart failure, unspecified; E11.65 Type 2 diabetes mellitus with hyperglycemia; E78.5 Hyperlipidemia, unspecified

== ENCOUNTER → 2018-10-11 11:37 | Outpatient (CLI) | payer MEDICARE ==
[2018-09-16 11:39] VITALS: BMI 38.4
[~2018-10-11 11:37] MED LIST changes: +FLORAJEN3 CAPS460 MG PO; +FLUTICASONE PRO16 GM NASAL
== END | disposition home or self-care (01) ==
LOC: D.CT 11:30
PROVIDERS: ATTEND Family Medicine
DX: R10.11 Right upper quadrant pain (principal)

== ENCOUNTER 2018-11-01 12:28 | Inpatient (IN) | payer MEDICARE ==
[~2018-11-01] VITALS: Ht 165.1 cm; Wt 75.1 kg
--- NOTE | ~2018-11-01 | HEMODYNAMI ---
PATIENT:MARYBETH GEE MEDICAL RECORD: [id number] : 44 LOCATION:[facility] D.2122 ADMISSION DATE: 11/01/18 Generatedon:11/07/201810:47 Patient name: MARYBETH GEE Patient #: [id number] SSN: DO B: 1940 Date of study: 11/07/2018 Page: Of Hemodynamic Procedure Report Patient Data Patient Demographics Procedure consent was obtained First Name: MARYBETH Gender: Female Last Name: GERARD : 1940 [facility] Initial: WINTER Age: 78 year(s) Patient #: [id number] Race: Unknown Additional ID: [id number] Contact details Address: [address] [place] [address] State: [place] City: [place] Zip code: [address] Past Medical History Allergies: No known allergies Admission Admission Data Admission Date: 11/01/2018 Admission Time: 12:28 Room #: D.2122 Lab Results Lab Result Date: 11/07/2018 Lab Result Time: 0:00 Biochemistry Name Units Result Min Max BUN mg/dl 27 --(----)-* 7 18 Creatinine mg/dl 1 --(--*-)-- 0.6 1.3 CBC Name Units Result Min Max Hemoglobin g/dl 12 *-(----)-- 13.5 17.5 Procedure Procedure Types Cath Procedure Diagnostic Procedure LHC LHC w/Coronaries Procedure Description Procedure Date Procedure Date: 11/07/2018 Procedure Start Time: 10:33 Procedure End Time: 10:43 Procedure Staff Name Function Russ Santiago RT Monitor Skyler Bernstein RN Nurse Beata Duarte RT Scrub Jose Swan MD Performing Physician Procedure Data Cath Procedure Fluoroscopy Diagnostic fluoroscopy Total fluoroscopy Time: 1.2 time: 1.2 min min Diagnostic fluoroscopy Total fluoroscopy dose: 390 dose: 390 mGy mGy Contrast Material Contrast Material Type Amount (ml) Isovue 300 63 Entry Location Entry Primary Successful Side Size Upsize Upsize Entry Closure Succes sful Closure Location (Fr) 1 (Fr) 2 (Fr) Remarks Device Remarks Femoral Right 5 Fr Exoseal artery Estimated blood loss: 5 ml Diagnostic catheters Device Type Used For End Catheter Placement MULTIPACK JL 4.0 5Fr Left Coronary catheter Angiography MULTIPACK 3DRC 5Fr Right Coronary catheter Angiography MULTIPACK Pigtail 5 Fr LV Angiography catheter Procedure Complications No complications Procedure Medications Medication Administration Route Dosage 0.9% NaCl I.V. 100 ml/hr Oxygen etCO2 Nasal cannula 2 l/min Heparin Flush Bag added to field 2 bags (1000units/500ml NS) Lidocaine 2% added to field 20 Versed I.V. 0.5 mg Fentanyl I.V. 25 mcg Hemodynamics Rest HGB: 12 (g/dl) Heart Rate: 75 (bpm) Pressure Samples Time Site Value (mmHg) Purpose Heart Use Rate(bpm) 10:41 LV 128/11,13 Snapshot 73 Gradients Valve Time Site Site Mean SEP/DFP Peak To Heart Use 1 2 (mmHg) (sec/min) Peak Rate (mmHg) (bpm) Aortic 10:41 LV AO 74 Snapshots Pre Cath Intra NCS Post Cath Vital Signs Time Heart Resp SPO2 etCO2 NIBP (mmHg) Rhythm Pain Sedation Rate (ipm) (%) (mmHg) Status Level (bpm) 10:23:36 82 25 97 0 137/90(120) NSR 0 (11) 10(A) , No pain 10:27:52 79 25 96 36 128/69(103) NSR 0 (11) 10(A) , No pain 10:32:08 75 18 96 36.7 127/71(108) NSR 0 (11) 10(A) , No pain 10:36:24 75 26 95 16.4 125/65(99) NSR 0 (11) 10(A) , No pain 10:40:38 73 19 93 6.7 123/66(96) NSR 0 (11) 10(A) , No pain Medications Time Medication Route Dose Verified Delivered Reason Notes Eff ectiveness by by 10:30:50 0.9% NaCl I.V. 100 Skyler Skyler Per ml/hr Amandeep Bernstein physician RN RN 10:30:58 Oxygen etCO2 2 Skyler Skyler for low 02 Nasal l/min Amandeep Bernstein sats cannula RN RN 10:31:09 Heparin Flush added 2 Skyler Skyler used for Bag to bags Lorigan Lorigan procedure (1000units/500ml field RN RN NS) 10:31:18 Lidocaine 2% added 20ml Skyler Skyler for local to vial Lorigan Lorigan anesthetic field RN RN 10:34:01 Versed I.V. 0.5 Skyler Skyler for mg Lorigan Lorigan sedation RN RN 10:34:10 Fentanyl I.V. 25 Skyler Skyler for mcg Lorigan Lorigan sedation RN automobile [employer] information clerk Log Time Note 9:50:32 Russ Santiago RT(R) sent for patient. Start room use. 10:09:58 Time tracking: Regular hours (M-F 7:00 - 5:00) 10:10:02 Plan of Care:Hemodynamics will remain stable., Cardiac rhythm will remain stable., Comfort level will be maintained., Respiratory function will remain adequate., Patient/ family verbilizes understanding of procedure., Procedure tolerated without complication., Recovers from procedure without complications.. 10:10:59 Lab Result : Hemoglobin 12 g/dl 10::59 Lab Result : Creatinine 1 mg/dl 10::59 Lab Result : BUN 27 mg/dl 10:22:23 Patient received from Med II to CCL 2 Alert and oriented. Tansferred to table in Supine position. 10:22:25 Warm blankets applied, and fernando hugger turned on for patient comfort. 10:22:25 Correct patient and procedure confirmed by team. 10:22:27 Signed procedure consent form obtained from patient. 10:22:28 ECG and BP/O2 sat monitors applied to patient. 10:22:29 Vital chart was started 10:22:30 Baseline sample Acquired. 10:22:33 Rhythm: sinus rhythm 10:22:35 Full Disclosure recording started 10:25:34 H&P Date Dictated: 11/07/2018 New H&P dictated by physician.. 10:25:36 Pre-procedure instructions explained to patient. 10:25:36 Pre-op teaching completed and patient verbalized understanding. 10:25:37 Family in waiting room. 10:25:39 Patient NPO since Midnight. 10:25:42 Is the patient allergic to Iodine/contrast media? No. 10:25:43 Was the patient premedicated? No 10:25:44 Is patient on blood thinner?Yes 10:25:47 ACC The patient was administered the following blood thiners within the last 24 hours: ACCLovenox 10:25:49 Patient diabetic? Yes. 10:25:49 If diabetic: On Metformin? Yes 10:25:53 If on Metformin: Last Dose? 11/05/2018 10:25:56 Previous problem with sedation/anesthesia? No ? 10:25:58 Snore? Yes 10:25:59 Sleep apnea? No 10:26:00 Deviated septum? No 10:26:01 Opens mouth fully? Yes 10:26:01 Sticks out tongue? Yes 10:26:05 Airway obstruction? Yes asthma 10:26:07 Dentures? No ? 10:26:11 Pre procedure: right dorsailis pedis pulse 2+ Normal; easily identifiable; not easily obliterated 10:26:13 Pre procedure: left dorsailis pedis pulse 2+ Normal; easily identifiable; not easily obliterated 10:26:15 Patient pain scale 0/10 ?. 10:26:20 IV patent on arrival in left wrist with 0.9% NaCl at [facility]. 10:26:23 Lab results completed and on chart. 10:26:26 Right groin area was prepped with chlora-prep and draped in sterile fashion 10:26:27 Alarms reviewed by R. N. 10:26:28 Sharps counted by scrub and verified by R.N. 10:30:50 0.9% NaCl 100 ml/hr I.V. was administered by Skyler Bernstein RN; Per physician; 10::58 Oxygen 2 l/min etCO2 Nasal cannula was administered by Skyler Bernstein RN; for low 02 sats; 10:31:09 Heparin Flush Bag (1000units/500ml NS) 2 bags added to field was administered by Skyler Bernsetin RN; used for procedure; 10:31:18 Lidocaine 2% 20ml vial added to field was administered by Skyler Bernstein RN; for local anesthetic; 10::59 Physician arrived 10:32:00 --------ALL STOP TIME OUT------ 10:32:01 Final Timeout: patient, procedure, and site verified with staff and physician. All members of the team are in agreement. 10:32:04 Right groin site verified by team. 10:32:07 Maximum allowable Isovue 300 dose 300ml. Physician notified. (300ml for normal creatinines. For patients with creatinine of 1.7 or higher multiply weight(kg) x 5 divided by creatinine.) 10:32:11 Fire Safety Assessment: A--An alcohol-based skin anteseptic being used preoperatively., C--Open oxygen or nitrous oxide is being used., D--An ESU, laser, or fiber-optic light is being used. 10:32:27 Physical assessment completed. ASA score P 2 - A patient with mild systemic disease as per Jose Swan MD. 10:32:38 Sedation plan: IV Moderate Sedation Medication:Versed, Fentanyl 10:32:41 Use device set Femoral Dx 10:32:42 ACIST Syringe (11203) opened to sterile field. 10:32:43 Bag Decanter (2002S) opened to sterile field. 10:32:43 Medline Cath Pack ([id number]) opened to sterile field. 10:32:43 DIAGNOSTIC WIRE .035 260cm J wire (525748) opened to sterile field. 10:32:45 ACIST Hand Control (17923) opened to sterile field. 10:32:45 ACIST Manifold (46088) opened to sterile field. 10:32:46 DIAGNOSTIC Multipack 5Fr catheter set (FV6167) opened to sterile field. 10:32:46 Tegaderm 4 x 4 (1626W) opened to sterile field. 10:32:47 SHEATH 5FR [place] (LAS589) opened to sterile field. 10:33:46 Procedure started. 10:33:48 Local anesthetic to right femoral artery with Lidocaine 2% by Jose Swan MD.INITIAL ACCESS ONLY 10:34:01 Versed 0.5 mg I.V. was administered by Skyler Bernstein RN; for sedation; 10:34:10 Fentanyl 25 mcg I.V. was administered by Skyler Bernstein RN; for sedation; 10:34:23 Zero performed for pressure channel P1 10:35:28 A 5 Fr sheath was inserted into the Right Femoral artery 10:36:06 A MULTIPACK JL 4.0 5Fr catheter was advanced over the wire and used for Left Coronary Angiography. 10:37:53 LCA angiography performed. 10:37:57 Injector settings: Ml/sec: 3, Volume: 6, 10:38:35 Catheter removed. 10:39:25 A MULTIPACK 3DRC 5Fr catheter was advanced over the wire and used for Right Coronary Angiography. 10:39:52 RCA angiography performed. 10:39:55 Injector settings: Ml/sec: 3, Volume: 6, 10:40:03 Catheter removed. 10:40:08 A MULTIPACK Pigtail 5 Fr catheter was advanced over the wire and used for LV Angiography. 10:41:33 LV hemodynamics recorded. 10:41:34 LV gram done using VERA 10:41:36 Injector settings: Ml/sec: 5, Volume: 15, 10:41:44 EF : 55 % 10:42:19 Catheter removed. 10:42:21 EXOSEAL 5Fr (EX500) opened to sterile field. 10:42:31 Sheath removed intact; hemostasis achieved with Exoseal to the Right Femoral artery. 10:42:35 Procedure ended.(Physican Out) 10:42:44 Fluoroscopy time 01.20 minutes. 10:42:48 Flurop Dose total: 390 10:42:48 Fluoroscopy dose: 390 mGy 10:42:52 Contrast amount:Isovue 300 63ml. 10:43:04 Sharps counted by scrub and verified by R.N. 10:43:06 Insertion/operative site no bleeding no hematoma. 10:43:10 Post-op/insertion site Right Femoral artery dressed using a 4 x 4 and Tegaderm. 10:43:11 Post Procedure Pulses reassessed and unchanged 10:43:14 Post procedure rhythm: unchanged. 10:43:16 Estimated blood loss: 5 ml 10:43:18 Post procedure instruction explained to patient.Patient verbalizes understanding. 10:43:18 Patient needs reinforcement of post procedure teaching. 10:43:24 Procedure and supply charges have been captured, reviewed, submitted and are correct. 10:43:28 Procedure Complication : No complications 10:43:31 Vital chart was stopped 10:43:31 See physician's report for complete and final results. 10:43:38 Report given to Med II. 10:43:41 Patient transfered to Pre/Post Procedure Room with Stretcher. 10:43:44 Procedure ended. 10:43:44 Full Disclosure recording stopped 10:43:53 End room use (Document Last) Device Usage Item Name Manufacture Quantity Catalog Hospital Part Current Minimal L ot# / Number Charge Number Stock Stock Serial# Code ACIST Acist 1 16858 116123 233607 442135 20 Syringe Medical (32752) Systems Inc Bag Microtek 1 2001S 581029 53785 951467 5 Decanter Medical Inc. () Medline Medline 1 [id number] 077370 10265 303647 5 Cath Pack ([id number]) DIAGNOSTIC [place] 1 134133 364493 382012 119682 30 WIRE .035 260cm J wire (917742) ACIST Hand Acist 1 91263 112203 178366 514469 5 Control Medical (37394) Systems Inc ACIST Acist 1 77589 501834 492788 941676 5 Manifold Medical (05921) Systems Inc DIAGNOSTIC Cardinal 1 UJ0381 987442 85515 527682 30 Multipack Health 5Fr catheter set (GB5916) Tegaderm 4 3M 1 1626W 372521 376778 404210 5 x 4 (1626W) SHEATH 5FR Terumo 1 ANR202 314068 635235 535282 5 [place] (DVI505) MULTIPACK Cardinal 1 128342 5 JL 4.0 5Fr Health catheter MULTIPACK Cardinal 1 016627 5 3DRC 5Fr Health catheter MULTIPACK Cardinal 1 309394 5 Pigtail 5 Health Fr catheter EXOSEAL 5Fr Cardinal 1 EX500 677241 343835 133292 10 (EX500) Health Signature Audit [place] Stage Time Signature Unsigned Intra-Procedure 11/07/2018 Beata Duarte 10:47:52 AM RT(R) Signatures Monitor : Russ Santiago RT Signature : Date : Time : [facility] [address] [place] [address]
--- NOTE | 2018-11-01 13:00 | NUR ---
ARRIVED TO ROOM 2222 FROM CLINIC AWAKE AND ALERT WITH SLOW AND STEADY GAIT. RESP EVEN AND SLIGHTLY LABORED WITH NO DISTRESS NOTED. CAN EXPRESS NEESD AND WANTS. IV STARTED TO RIGHT HAND WITH 22G. DENIES ANY PAIN OR DISCOMFORT AT THIS TIME. ADMITTED DX OF EXAC COPD. FAMILY AND C/L IN REACH AT BEDSIDE.
[2018-11-01 14:01] VITALS: BP 146/72
[2018-11-01 14:36] LABS: EOSINOPHILS 12.9 % (0-7); HEMATOCRIT 40.1 % (36.0-48.0); HEMOGLOBIN 13.1 g/dL (12-16); IMMATURE GRANULOCYTES 0.1 % (0-5); LYMPHOCYTES 14.3 % (15-50); MCH 29.2 pg (26.0-34.0); MCHC 32.7 g/dL (31.0-37.0); MCV 89.5 fL (80.0-100.0); MEAN PLATELET VOLUME 10.6 fL (7.4-10.4); MONOCYTES 6.1 % (2-11); NEUTROPHILS 65.6 % (40-80); PLATELET COUNT 296 10x3/uL (130-400); RBC 4.48 10x6/uL (4.00-5.40); RDW 13.1 % (11.5-14.5); WBC 7.9 10x3/uL (4.8-10.8)
[2018-11-01 15:01] LABS: ALBUMIN 3.7 g/dL (3.4-5.0); ANION GAP 11.2 mmol/L (8-16); BILIRUBIN - TOTAL 0.33 mg/dL (0.2-1.3); CARBON DIOXIDE 30.5 mmol/L (21.0-32.0); CREATININE - SERUM 0.8 mg/dL (0.6-1.3); POTASSIUM - SERUM 3.7 mmol/L (3.5-5.1); PROTEIN - SERUM 6.7 g/dL (6.4-8.2)
[2018-11-01 15:19] VITALS: BP 146/72; BMI 32.8
[2018-11-01 17:47] VITALS: BP 146/72
--- NOTE | 2018-11-01 20:00 | NUR ---
ASSESSMENT PER FLOWSHEET. IV PATENT RT HAND OF NS AT 50CC'S/HR. ALERT/ORINTED X3 TALKING ON PHONE WITH FRIEND. NO SCD'S IN USE PT IS UP AD HARRIET.
[2018-11-01 21:14] VITALS: BP 127/57
--- NOTE | 2018-11-01 21:30 | NUR ---
MEDS GIVEN PER AUG. LEAJ=305. 4 UNITS OF HUMALOG INSULIN GIVEN PER S/S TO RT ARM.
--- NOTE | 2018-11-02 | NUR ---
EYES CLOSED RESPIRATIONS WITH EASE AND UNLABORED.
[2018-11-02 01:40] VITALS: BP 134/59
[2018-11-02 05:02] VITALS: BP 127/63
[2018-11-02 07:27] LABS: BASOPHILS 0 % (0-2); EOSINOPHILS 0 % (0-7); HEMATOCRIT 38.2 % (36.0-48.0); HEMOGLOBIN 12.8 g/dL (12-16); IMMATURE GRANULOCYTES 0.2 % (0-5); LYMPHOCYTES 7.9 % (15-50); MCH 29.4 pg (26.0-34.0); MCHC 33.5 g/dL (31.0-37.0); MCV 87.6 fL (80.0-100.0); MEAN PLATELET VOLUME 10.6 fL (7.4-10.4); MONOCYTES 0.9 % (2-11); PLATELET COUNT 287 10x3/uL (130-400); RBC 4.36 10x6/uL (4.00-5.40); RDW 12.6 % (11.5-14.5)
[2018-11-02 07:33] LABS: WBC 5.3 10x3/uL (4.8-10.8)
[2018-11-02 07:42] LABS: ALBUMIN 3.4 g/dL (3.4-5.0); BILIRUBIN - TOTAL 0.29 mg/dL (0.2-1.3); CARBON DIOXIDE 26.5 mmol/L (21.0-32.0); CREATININE - SERUM 0.9 mg/dL (0.6-1.3); MAGNESIUM - SERUM 1.8 mg/dL (1.8-2.4); PHOSPHOROUS 3.4 mg/dL (2.5-4.9); PROTEIN - SERUM 6.7 g/dL (6.4-8.2)
[2018-11-02 07:48] LABS: POTASSIUM - SERUM 4.5 mmol/L (3.5-5.1)
[2018-11-02 08:53] VITALS: BP 128/58
[2018-11-02 12:00] VITALS: BP 130/61
[2018-11-02 12:21] VITALS: Ht 165.1 cm; Wt 75.1 kg
[2018-11-02 12:35] LABS: APPEARANCE HAZY (CLEAR); BACTERIA MODERATE /hpf (NONE SEEN); BILIRUBIN NEGATIVE (NEGATIVE); COLOR YELLOW (YELLOW); EPITHELIAL CELLS 0-5 /hpf (0-5); GLUCOSE 250 mg/dL (NEGATIVE); KETONE NEGATIVE (NEGATIVE); NITRITE NEGATIVE (NEGATIVE); PROTEIN NEGATIVE (NEGATIVE); RED CELLS - URINE RARE /hpf (0-5); SPECIFIC GRAVITY 1.015 (1.005-1.020); UROBILINOGEN NORMAL (NORMAL)
--- NOTE | 2018-11-02 14:15 | NUR ---
PT IS WITHOUT NEEDS AT PRESENT.
--- NOTE | 2018-11-02 16:28 | NUR ---
PT LYING IN BED WITH FAMILY AT BEDSIDE. NO S/S OF DISRTRESS. BED IN LOW POSITION. CL IN REACH. CONTINUE WITH PLAN OF CARE
[2018-11-02 17:09] VITALS: BP 119/57
--- NOTE | 2018-11-02 20:00 | NUR ---
ASSESSMENT PER FLOWSHEET.IV PATENT RT WRIST OF NS AT 50CC'S/HR SITE CLEAR. SR UP X2 CALL LIGHT WITHIN REACH DENIES NEEDS.
--- NOTE | 2018-11-02 21:15 | NUR ---
MEDS GIVEN PER AUG. DDEF=276. HUMALOG INSULIN 8 UNITS GIVEN SUBC RT ARM PER S/S.
[2018-11-02 21:17] VITALS: BP 136/57
--- NOTE | 2018-11-03 00:30 | NUR ---
EYES CLOSED RESPIRATIONS WITH EASE AND UNLABORED.
[2018-11-03 00:56] VITALS: BP 121/52
[2018-11-03 05:04] VITALS: BP 136/70
[2018-11-03 05:50] LABS: BASOPHILS 0 % (0-2); EOSINOPHILS 0 % (0-7); HEMATOCRIT 34.9 % (36.0-48.0); HEMOGLOBIN 11.4 g/dL (12-16); IMMATURE GRANULOCYTES 0.1 % (0-5); LYMPHOCYTES 6.2 % (15-50); MCH 28.9 pg (26.0-34.0); MCHC 32.7 g/dL (31.0-37.0); MCV 88.6 fL (80.0-100.0); MEAN PLATELET VOLUME 10.4 fL (7.4-10.4); MONOCYTES 3.1 % (2-11); NEUTROPHILS 90.6 % (40-80); PLATELET COUNT 285 10x3/uL (130-400); RBC 3.94 10x6/uL (4.00-5.40); RDW 13.2 % (11.5-14.5); WBC 7.4 10x3/uL (4.8-10.8)
[2018-11-03 06:12] LABS: ALBUMIN 3.4 g/dL (3.4-5.0); ANION GAP 12.5 mmol/L (8-16); BILIRUBIN - TOTAL 0.16 mg/dL (0.2-1.3); CALCIUM 8.9 mg/dL (8.5-10.1); CARBON DIOXIDE 24.6 mmol/L (21.0-32.0); POTASSIUM - SERUM 4.1 mmol/L (3.5-5.1); PROTEIN - SERUM 6.4 g/dL (6.4-8.2)
--- NOTE | 2018-11-03 07:18 | NUR ---
PT IS RESTING IN BED WITH EYES CLOSED. RESPIRATIONS ARE EVEN ANDN UNLABORED. PT IS ON ROOM AIR. PT DENIES PRESENCE OF DYSPNEA AND/OR SOB AT THIS TIME. PT REPORTS A FREQUENT PRODUCTIVE COUGH AND DESCRIBES SPUTUM WHITE. PT IS EASILY AROUSED WITH VERBAL STIMULATION. PT DENIES PRESENCE OF PAIN AND/OR N/V AT THIS TIME. BED IS IN THE LOWEST POSITION. CALL LIGHT AND BEDSIDE TABLE ARE WITHIN REACH. SIDE RAILS X 2. WILL CONT TO MONITOR.
[2018-11-03 08:58] VITALS: BP 134/64
--- NOTE | 2018-11-03 10:12 | MORECARE ---
CASE MANAGEMENT DISCHARGE SUMMARY PATIENT: MARYBETH GEE WINTER UNIT: [id number] ADM DATE: 11/01/18 AGE: 78 : 42 SEX: F ROOM/BED: D.2222 AUTHOR: DREW VASQUEZ PHYSICIAN: REFERRING PHYSICIAN: YURY LARSON DO DATE OF SERVICE: 11/03/18 Discharge Plan Patient Name: MARYBETH GEE [facility] [facility] 1940 Planned Disposition: Home Anticipated Discharge Date: Discharge Date: Expected LOS: Initial Reviewer: [email or web address] Initial Review Date: 11/03/2018 Generated: 11/03/18 11:12 am Patient Name: AMRYBETH GEE Page [id number] at 1012 All edits/amendments must be made on the electronic document DICTATION DATE: 11/03/18 1011 SELLING MANAGER: ERIKA 11/03/18 1011 RPT#: [id number] DC DATE: STATUS: ADM IN [facility] [address] [place] [address] END OF REPORT
--- NOTE | 2018-11-03 10:34 | MORECARE ---
CASE MANAGEMENT DISCHARGE SUMMARY PATIENT: GILA GEE UNIT: [id number] ADM DATE: 11/01/18 AGE: 78 : 42 SEX: F ROOM/BED: D.2222 AUTHOR: CHRISTINA,DOC PHYSICIAN: REFERRING PHYSICIAN: YURY LARSON DO DATE OF SERVICE: 11/03/18 Discharge Plan Patient Name: GILA GEE Facility: [facility]:[place] : 1940 Planned Disposition: Home Anticipated Discharge Date: Discharge Date: Expected LOS: Initial Reviewer: [email or web address] Initial Review Date: 11/03/2018 Generated: 11/03/18 11:34 am Comments DCP- Discharge Planning Updated by [email or web address]: Yaquelin Calvo on 11/03/18 9:[address] Patient Name: GILA GEE Admission Status: Elective Accout number: [id number] Admission Date: 11-01-2018 : 1940 Admission Diagnosis: Attending: YURY LARSON Current LOS: 2 Anticipated DC Date: Planned Disposition: Home Primary Insurance: [facility] [employer] SOLUTIONS Discharge Planning Comments: CM met with patient to complete initial dc planning assessment. CM educated patient on the CM role and verbal consent given by patient to complete assessment. Patient lives at home with her grown daughter (Edgardo). At discharge patient plans to return and feels this is a safe discharge. CM discussed availability of home health, rehab services, and medical equipment. Patient denied known discharge needs at this time. States she has 5 children, and one of them will take her home on discharge. I asked again about home health and she states she has plenty of help at home and she is still independent and does not need home health. CM will continue to follow and will assist as needed with dc plans/needs. Manager Intermediate: Yaquelin Calvo DCPIA - Discharge Planning Initial Assessment Updated by [email or web address]: Yaquelin Calvo on 11/03/18 10:31 am * Is the patient Alert and Oriented? Yes * How many steps to enter\exit or inside your home? 0/0 * PCP Dr. Larson * Pharmacy [facility] in [place] for short term meds Mail order for maintenance meds * Preadmission Environment Home with Family * ADLs Partial Dependent * Partial ADLs (Assistance needed) Ambulation * Equipment Cane Glucometer Nebulizer Rolling Walker * List name and contact numbers for known caregivers / representatives who currently or will assist patient after discharge: Nadja saldana - [phone] Gila Nguyen - [facility] - [phone] Edgardo - [facility] - [phone] * Verbal permission to speak to the caregivers and representatives has been obtained from the patient. Yes * Community resources currently utilized None * Additional services required to return to the preadmission environment? No * Can the patient safely return to the preadmission environment? Yes * Has this patient been hospitalized within the prior 30 days at any hospital? No Last DP export: 11/03/18 9:12 a Patient Name: GILA GEE Page [phone] at 1034 All edits/amendments must be made on the electronic document DICTATION DATE: 11/03/18 1033 BARREL ROLLER: ERIKA 11/03/18 1033 RPT#: [id number] DC DATE: STATUS: ADM IN [facility] [address] [place] [address] END OF REPORT
--- NOTE | 2018-11-03 12:22 | NUR ---
Nutrition Follow Up: Chart reviewed Diet: Regular No BM since admit Labs reviewed - Glucose continues elevated ( > 200 ) Meds noted including Solu Medrol Will change diet to ADA to aid in glucose control. RD following.
[2018-11-03 13:26] VITALS: BP 132/65
[2018-11-03 18:00] VITALS: BP 129/59
--- NOTE | 2018-11-03 19:00 | NUR ---
REPORT RECEIVED AND CARE OF PT ASSUMED. PT LYING IN HIGH KLINE'S POSITION WATCHING TV. IV IN RIGHT HAND PATENT WITH NS INFUSING AT 50 ML / HR. WILL MONITOR FOR NEEDS.
--- NOTE | 2018-11-03 19:12 | NUR ---
OT NOTE: PT COMPLETED ADL MOB WITH SBA. PT COMPLETED SIT TO STANDS WITH SBA. PT COMPLETED BUE AROM EXS AT EOB WITH SBA. PT COMPLETED TOILETING WITH SBA. THANK YOU, MIKA RAZA
--- NOTE | 2018-11-03 20:20 | NUR ---
HS MEDICATIONS GIVEN. FSBS 245 THIS CHECK REQUIRING COVERAGE WITH 8 UNITS OF INSULIN PER SLIDING SCALE.
--- NOTE | 2018-11-03 20:30 | NUR ---
GAVE HS SNACK OF JOHAN CRACKERS, MILK AND JUICE TO MIX MIRALAX WITH.
[2018-11-03 20:49] VITALS: BP 135/56
[2018-11-04 02:08] VITALS: BP 135/69
[2018-11-04 04:49] VITALS: BP 126/54
[2018-11-04 06:13] LABS: BASOPHILS 0 % (0-2); EOSINOPHILS 0 % (0-7); HEMATOCRIT 34.2 % (36.0-48.0); HEMOGLOBIN 11.1 g/dL (12-16); IMMATURE GRANULOCYTES 0.5 % (0-5); LYMPHOCYTES 7.6 % (15-50); MCH 28.8 pg (26.0-34.0); MCHC 32.5 g/dL (31.0-37.0); MCV 88.8 fL (80.0-100.0); MEAN PLATELET VOLUME 10.6 fL (7.4-10.4); MONOCYTES 5.7 % (2-11); NEUTROPHILS 86.2 % (40-80); PLATELET COUNT 277 10x3/uL (130-400); RBC 3.85 10x6/uL (4.00-5.40); RDW 13.5 % (11.5-14.5); WBC 7.8 10x3/uL (4.8-10.8)
[2018-11-04 06:34] LABS: % SATURATION 23 % (15-55); IRON 65 ug/dl (35-150); TOTAL IRON BIND CAPACITY 279 ug/dl (260-445); UNSAT IRON BIND CAPACITY 214 ug/dl (150-375)
[2018-11-04 06:50] LABS: ALBUMIN 3.1 g/dL (3.4-5.0); ANION GAP 11.9 mmol/L (8-16); BILIRUBIN - TOTAL 0.23 mg/dL (0.2-1.3); CALCIUM 8.5 mg/dL (8.5-10.1); CARBON DIOXIDE 28.5 mmol/L (21.0-32.0); CREATININE - SERUM 0.8 mg/dL (0.6-1.3); POTASSIUM - SERUM 4.4 mmol/L (3.5-5.1)
--- NOTE | 2018-11-04 07:36 | NUR ---
ALERT AND ORIENTED X 3. EXPIRATORY WHEEZES NOTED. PRODUCTIVE COUGH WITH WHITE SPUTUM. HEART SOUNDS S1 AND S2 HEARD IN ALL LIRA. BOWEL SOUNDS ACTIVE X 4. IV TO RIGHT HAND PATENT WITHOUT REDNESS. DENIES PAIN. DENIES NEEDS. BED LOW. CALL HOLLIS AND PERSONAL ITEMS IN REACH. WILL CONTINUE TO MONITOR.
[2018-11-04 09:39] VITALS: BP 138/64
--- NOTE | 2018-11-04 10:05 | NUR ---
RESTING IN BED. DENIES NEEDS. WILL CONTINUE TO MONITOR.
--- NOTE | 2018-11-04 12:15 | NUR ---
IV TO RIGHT WRIST LEAKING. REMOVED WITH TIP INTACT. IV RESITED TO LFA AFTER THREE ATTEMPTS BY TWO RNS.
[2018-11-04 13:38] VITALS: BP 133/62
--- NOTE | 2018-11-04 14:34 | NUR ---
RESTING IN BED. DENIES PAIN. DENIES NEEDS.
--- NOTE | 2018-11-04 15:46 | NUR ---
RESTING IN BED. DENIES PAIN. DENIES NEEDS. WILL CONTINUE TO MONITOR.
[2018-11-04 17:57] VITALS: BP 118/65
--- NOTE | 2018-11-04 18:25 | NUR ---
RESTING IN BED. DENIES NEEDS.
--- NOTE | 2018-11-04 19:00 | NUR ---
REPORT RECEIVED AND CARE OF PT ASSUMED. PT LYING IN LOW KLINE'S POSITION WATCHING TV. IV TO LEFT FA SALINE LOCKED. WILL MONITOR FOR NEEDS.
[2018-11-04 20:00] VITALS: BP 120/63
--- NOTE | 2018-11-04 21:10 | NUR ---
HS MEDICATIONS GIVEN. FSBS 153 THIS CHECK REQUIRING COVERAGE WITH 4 UNITS OF INSULIN. GAVE JOHAN CRACKERS AND APPLE JUICE FOR HS SNACK. WILL CONTINUE TO MONITOR FOR NEEDS.
[2018-11-05] VITALS: BP 119/56
[2018-11-05 03:00] VITALS: BP 150/60
[2018-11-05 05:58] LABS: BASOPHILS 0 % (0-2); EOSINOPHILS 0 % (0-7); HEMATOCRIT 36.4 % (36.0-48.0); HEMOGLOBIN 11.7 g/dL (12-16); IMMATURE GRANULOCYTES 0.5 % (0-5); LYMPHOCYTES 7.4 % (15-50); MCH 28.7 pg (26.0-34.0); MCHC 32.1 g/dL (31.0-37.0); MCV 89.4 fL (80.0-100.0); MEAN PLATELET VOLUME 10.9 fL (7.4-10.4); MONOCYTES 4.8 % (2-11); NEUTROPHILS 87.3 % (40-80); PLATELET COUNT 284 10x3/uL (130-400); RBC 4.07 10x6/uL (4.00-5.40); RDW 13.3 % (11.5-14.5); WBC 6.5 10x3/uL (4.8-10.8)
[2018-11-05 06:47] LABS: ALBUMIN 3.3 g/dL (3.4-5.0); ANION GAP 11.4 mmol/L (8-16); BILIRUBIN - TOTAL 0.32 mg/dL (0.2-1.3); CALCIUM 8.6 mg/dL (8.5-10.1); CARBON DIOXIDE 31.2 mmol/L (21.0-32.0); POTASSIUM - SERUM 4.6 mmol/L (3.5-5.1); PROTEIN - SERUM 6.5 g/dL (6.4-8.2)
[2018-11-05 08:49] VITALS: BP 116/68
[2018-11-05] MEDS ORDERED: MUCINEX DM ER1 EAC1 PO (10:24)
[2018-11-05] MEDS ORDERED: COLACE100 MG PO (10:24)
[2018-11-05] MEDS ORDERED: SINGULAIR10 MG PO (10:26)
[2018-11-05] MEDS ORDERED: ZITHROMAX250 MG PO (10:27)
[2018-11-05] MEDS ORDERED: OMNICEF300 MG PO (10:28)
[2018-11-05] MEDS ORDERED: BROVANA15 MCG/2 M INH (10:28)
[2018-11-05] MEDS ORDERED: PULMICORT0.5 MG/21 INH (10:28)
[2018-11-05] MEDS ORDERED: Tessalon Perle PO (10:29)
[2018-11-05] MEDS ORDERED: PREDNISONE10 MG PO (10:29)
[2018-11-05 13:39] VITALS: BP 145/65
--- NOTE | 2018-11-05 14:22 | NUR ---
PER DR THOMAS PT HR IS 140, WENT WITH DR TO RECHECK PT O2 AND HR. PT HR SHOWED 137. PLACED HEART MONITOR ON PT PER DR THOMAS AND DC CANCELLED FOR NOW. NO NEEDS VOICED BY PT. CONTINUE WITH PLAN OF CARE
[2018-11-05 17:09] VITALS: BP 115/64
--- NOTE | 2018-11-05 18:47 | NUR ---
I have reviewed this patient and I concur with the Shift Assessment completed by the Licensed Practical Nurse today this shift.
--- NOTE | 2018-11-05 19:00 | NUR ---
REPORT RECEIVED AND CARE OF PT ASSUMED. PT LYING IN HIGH KLINE'S POSITION WATCHING TV. IV TO LEFT FA SALINE LOCKED. WILL MONITOR FOR NEEDS.
[2018-11-05 20:18] VITALS: BP 118/51
--- NOTE | 2018-11-05 21:04 | NUR ---
HS MEDICATIONS GIVEN. FSBS 87 THIS CHECK REQUIRING NO COVERAGE PER SLIDING SCALE. GAVE SNACK OF JOHAN CRACKERS AND APPLE JUICE.
--- NOTE | 2018-11-06 03:38 | NUR ---
AT 0300 PT CALL LIGHT CAME ON AND SHE WAS YELLING THAT SHE COULD NOT BREATH. SPO2 42% ON ARRIVAL. CALLED RAPID RESPONSE...RT AT BEDSIDE WITHIN 30 SECONDS AND PLACED PT ON NON RE-BREATHER, AND GAVE DUONEB UPDRAFT TX. ANOOP SADLER RN RESPONDED TO RAPID RESPONSE. ORDERED CBC, BMP, D-DIMER, PRO BNP AND CHEST XRAY. GAVE LASIX 20 MG IVP. PT NOW ON 7L HIGH FLOW NC AND SPO2 96%...BREATHING EASIER AND STATES SHE IS FEELING MUCH BETTER.
[2018-11-06 03:44] LABS: BASOPHILS 0 % (0-2); EOSINOPHILS 0.4 % (0-7); HEMATOCRIT 38.3 % (36.0-48.0); HEMOGLOBIN 12.7 g/dL (12-16); IMMATURE GRANULOCYTES 0.6 % (0-5); MCH 29.1 pg (26.0-34.0); MCHC 33.2 g/dL (31.0-37.0); MCV 87.8 fL (80.0-100.0); MEAN PLATELET VOLUME 10.3 fL (7.4-10.4); MONOCYTES 7.7 % (2-11); NEUTROPHILS 68.3 % (40-80); PLATELET COUNT 292 10x3/uL (130-400); RBC 4.36 10x6/uL (4.00-5.40); RDW 12.8 % (11.5-14.5); WBC 7.9 10x3/uL (4.8-10.8)
[2018-11-06 04:04] LABS: ALBUMIN 3.2 g/dL (3.4-5.0); ALKALINE PHOSPHATASE 54 U/L (46-116); ALT (SGPT) 19 U/L (10-68); BILIRUBIN - TOTAL 0.31 mg/dL (0.2-1.3); CALC OSMOLALITY 288 mosm/kg (275-300); CALCIUM 8.2 mg/dL (8.5-10.1); CARBON DIOXIDE 31.5 mmol/L (21.0-32.0); CHLORIDE - SERUM 102 mmol/L (98-107); GLUCOSE 177 mg/dL (74-106); POTASSIUM - SERUM 3.3 mmol/L (3.5-5.1); PRO BNP 678 pg/mL (0-450); PROTEIN - SERUM 6.3 g/dL (6.4-8.2); SODIUM 142 mmol/L (136-145); THYROID STIMULATING HORMONE 0.32 uIU/mL (0.36-3.74); TROPONIN-I < 0.017 ng/mL (0.000-0.060); UREA NITROGEN 19 mg/dL (7-18); eGFR NON AFRICAN AMERICAN 57 mL/min (90-120)
--- NOTE | 2018-11-06 04:45 | NUR ---
DR TOHMAS NOTIFIED OF RAPID RESPONSE AND REVIEWED ALL LABS AND CHEST XRAY. NO NEW ORDERS.
--- NOTE | 2018-11-06 05:11 | NUR ---
O2 TITRATED TO 4L VIA HIGH FLOW NC...SPO2 98%
[2018-11-06 05:34] VITALS: BP 142/67
--- NOTE | 2018-11-06 08:00 | NUR ---
PATIENT IN BED WITH NO COMPLAINTS OR SIGNS OF DISTRESS. STATED FEELING BETTER THIS AM WITH NO SOB OR LABORED BREATHING. VS WNL. WILL CONTINUE TO MONITOR. CALL LIGHT WITHIN REACH.
[2018-11-06 08:57] VITALS: BP 129/68
[2018-11-06 12:26] VITALS: BP 127/67
[2018-11-06 14:22] LABS: CKMB 0.6 U/L (0.0-3.6); CREATINE KINASE 72 UL (21-215); TROPONIN-I 0.029 ng/mL (0.000-0.060)
[2018-11-06 17:49] VITALS: BP 103/52
--- NOTE | 2018-11-06 18:55 | NUR ---
PATIENT IN BED WITH IV INTACT. NO COMPLAINTS OR PROBLEMS. O2 ON. CALL LIGHT WITHIN REACH. FAMILY AT BEDSIDE.
--- NOTE | 2018-11-06 19:00 | NUR ---
REPORT RECEIVED AND CARE OF PT ASSUMED. PT LYING IN LOW KLINE'S POSITION WATCHING TV. IV IN LEFT FA SALINE LOCKED. TELEMETRY IN USE AND READING 75 SR AT THIS ASSESSMENT. O2 IN USE VIA HIGH FLOW NC AT 4L. WILL MONITOR FOR NEEDS.
[2018-11-06 19:34] LABS: CKMB 0.2 U/L (0.0-3.6); CREATINE KINASE 60 UL (21-215)
[2018-11-06 19:36] LABS: TROPONIN-I < 0.017 ng/mL (0.000-0.060)
[2018-11-06 20:00] VITALS: BP 118/77
--- NOTE | 2018-11-06 21:07 | NUR ---
HS MEDICATIONS GIVEN TO INCLUDE PHEN W/ CODEINE COUGH SYRUP FOR COUGH. FSBS 301 THIS CHECK REQUIRING COVERAGE WITH 12 UNITS OF INSULIN PER SLIDING SCALE. GAVE HS SNACK OF APPLE JUICE AND JOHAN CRACKERS. WILL CONTINUE TO MONITOR FOR NEEDS.
[2018-11-06 23:25] VITALS: BP 127/62
[2018-11-07 01:28] LABS: CREATINE KINASE 54 UL (21-215); TROPONIN-I < 0.017 ng/mL (0.000-0.060)
[2018-11-07 04:19] LABS: BASOPHILS 0 % (0-2); EOSINOPHILS 0 % (0-7); HEMATOCRIT 36.9 % (36.0-48.0); IMMATURE GRANULOCYTES 0.4 % (0-5); LYMPHOCYTES 5.6 % (15-50); MCH 28.9 pg (26.0-34.0); MCHC 32.5 g/dL (31.0-37.0); MCV 88.9 fL (80.0-100.0); MEAN PLATELET VOLUME 10.4 fL (7.4-10.4); MONOCYTES 4.7 % (2-11); NEUTROPHILS 89.3 % (40-80); PLATELET COUNT 301 10x3/uL (130-400); RBC 4.15 10x6/uL (4.00-5.40); RDW 12.9 % (11.5-14.5); WBC 7.8 10x3/uL (4.8-10.8)
[2018-11-07 04:30] VITALS: BP 125/60
[2018-11-07 04:50] LABS: ALBUMIN 2.9 g/dL (3.4-5.0); BILIRUBIN - TOTAL 0.31 mg/dL (0.2-1.3); CALCIUM 8.3 mg/dL (8.5-10.1); CARBON DIOXIDE 31.3 mmol/L (21.0-32.0); PROTEIN - SERUM 6.1 g/dL (6.4-8.2)
[2018-11-07 04:54] LABS: ANION GAP 10.7 mmol/L (8-16)
[2018-11-07 07:56] VITALS: BP 128/77
--- NOTE | 2018-11-07 09:10 | NUR ---
I have reviewed this patient and I concur with the Shift Assessment completed by the Licensed Practical Nurse today this shift.
--- NOTE | 2018-11-07 10:10 | NUR ---
REPORT CALLED TO MED 2-DIAMANTE. PT TO MACHINE BOSS PER BED. BELONGINGS MOVED TO ROOM 2122-FAMILY AND PT INFORMED OF NEW ROOM NUMBER.
--- NOTE | 2018-11-07 11:26 | NUR ---
ARRIVE TO ROOM VIA BED FROM TOUR BUS DRIVER/GUIDE. ALERT AND ORIENTED X4. LAYING FLAT IN BED. RT GROIN DRESSING CLEAN DRY INTACT. FREE FROM HEMATOMA. FREE FROM BLEEDING. PULSE PALPABLE BILATERALLY. SINUS RHYTHM ON TELEMETRY 70. BP-126/74, O2 SAT 95% WITH 4L HFLNC. ENCOURAGE TO REMAINS FLAT FOR NEXT 2 HOURS DUE TO INCREASE RISK FOR BLEEDING.
[2018-11-07 16:21] VITALS: BP 121/61
[2018-11-07 21:24] VITALS: BP 123/60
[2018-11-08 00:36] VITALS: BP 130/53
--- NOTE | 2018-11-08 05:26 | NUR ---
I have reviewed this patient and I concur with the Shift Assessment completed by the Licensed Practical Nurse today this shift.
[2018-11-08 05:37] VITALS: BP 130/59
[2018-11-08 05:41] LABS: BASOPHILS 0 % (0-2); EOSINOPHILS 0 % (0-7); HEMATOCRIT 35.1 % (36.0-48.0); HEMOGLOBIN 11.5 g/dL (12-16); IMMATURE GRANULOCYTES 0.3 % (0-5); LYMPHOCYTES 7.8 % (15-50); MCH 29.3 pg (26.0-34.0); MCHC 32.8 g/dL (31.0-37.0); MCV 89.3 fL (80.0-100.0); MEAN PLATELET VOLUME 10.3 fL (7.4-10.4); MONOCYTES 6.2 % (2-11); NEUTROPHILS 85.7 % (40-80); PLATELET COUNT 281 10x3/uL (130-400); RBC 3.93 10x6/uL (4.00-5.40); RDW 12.9 % (11.5-14.5)
[2018-11-08 05:59] LABS: ALBUMIN 2.7 g/dL (3.4-5.0); ANION GAP 8.9 mmol/L (8-16); BILIRUBIN - TOTAL 0.31 mg/dL (0.2-1.3); CALCIUM 8.2 mg/dL (8.5-10.1); CARBON DIOXIDE 30.4 mmol/L (21.0-32.0); CREATININE - SERUM 0.9 mg/dL (0.6-1.3); POTASSIUM - SERUM 4.3 mmol/L (3.5-5.1); PROTEIN - SERUM 5.6 g/dL (6.4-8.2)
[2018-11-08 08:13] VITALS: BP 128/67
[2018-11-08 11:36] VITALS: BP 129/62
--- NOTE | 2018-11-08 14:00 | CN ---
PATIENT NAME:MARYBETH GEE MEDICAL RECORD: [id number] : 44 LOCATION:D. D.2122 ADMIT DATE: 11/01/18 ACCOUNT: [id number] CONSULTING PHYSICIAN: SENAIT ESPITIA MD REFERRING PHYSICIAN: YURY LARSON DO DATE OF CONSULTATION: 11/07/2018 HISTORY OF PRESENT ILLNESS: A 78-year-old female with history of reactive airway disease. She has a history of diabetes mellitus, hypertension, dyslipidemia, statin intolerant. Has been having intermittent chest tightness and pressure. She was having an exacerbation of reactive airway disease. However, this has been under fairly good control as of late. Has stenosis symptomology, had 2 episodes of rest symptomology with chest heaviness and tightness, waking her from sleep, consistent with unstable angina. We are asked to see her concerning her cardiovascular status. PAST MEDICAL HISTORY: Includes; 1. History of hypertension. 2. Hyperlipidemia. 3. Diabetes mellitus. 4. Reactive airway disease. 5. Hypothyroidism, on replacement. MEDICATIONS: Typically include Imdur 30 mg p.o. daily; Demadex 10 mg p.o. daily; Pulmicort b.i.d.; Mucinex DM 1 p.o. b.i.d.; Singulair 10 mg p.o. at bedtime; Glucotrol 10 b.i.d.; Synthroid 137 mcg every day; Glucophage 500 b.i.d. SOCIAL HISTORY: Nonsmoker, nondrinker. Does try to exercise on a regular basis. ALLERGIES: STATINS, CRANBERRY. REVIEW OF SYSTEMS: The patient reports easy bruising but reports no swollen glands. The patient reports no fever, no night sweats, no significant weight gain, no significant weight loss. No significant exercise tolerance. The patient reports no dry eyes, no irritation, no vision change. Patient reports no difficulty hearing and no ear pain. Patient reports no frequent nose bleeds or nose and sinus problems. Patient reports on arm pain on exertion. No shortness of breath while lying down. No history of heart murmur. Patient reports no cough, no wheezing or coughing up blood. Patient reports no abdominal pain, no vomiting. Normal appetite. No diarrhea and not vomiting blood. No nausea and no constipation. Patient reports no incontinence. No difficulty urinating. No hematuria. No increased frequency. Patient reports no muscle aches. No weakness, no arthralgias, no back pain. No swelling of the extremities. Patient reports no abnormal mole, no jaundice, no rashes. Reports no loss of consciousness. No weakness and no numbness. No seizures, dizziness, or headaches. The patient reports no depression, no sleep disturbance, feeling safe in a relationship and no alcohol abuse. Patient reports on fatigue. Reports no runny nose or sinus pressure. No itching, no hives, and no frequent sneezing. PHYSICAL EXAMINATION: GENERAL: Pleasant female in no acute distress, appears younger than stated age. VITAL SIGNS: Blood pressure 128/77, pulse 55 and regular. HEENT: Normocephalic, atraumatic. CONSULT REPORT [id number] MARYBETH GEE NECK: No JVD or bruit. HEART: Regular, II/ systolic ejection murmur. LUNGS: Good excursion. Really no active wheezes. ABDOMEN: Soft, nontender. EXTREMITIES: Pulse 2+ with no edema. IMPRESSION: Accelerated angina including rest symptomology. PLAN: For angiography, intervention based on above. TRANSINT:[id number] Voice Confirmation ID: [id number] DOCUMENT ID: [id number] SENAIT ESPITIA MD at 1400 CC: [id number] DICTATION DATE: 11/07/18826 COTTON BALER: 11/07/18930 ADM IN [place] [id number] [place] [id number]
--- NOTE | 2018-11-08 14:00 | OP ---
PATIENT NAME: MARYBETH GEE MEDICAL RECORD: [id number] :44 LOCATION:D.M2 D.2122 ADMISSION DATE:11/01/18 SURGEON: SENAIT ESPITIA MD DATE OF OPERATION: 11/07/2018 PROCEDURE: Left heart catheterization, selective coronary angiography, right femoral artery approach. CATHETERS: A 5-Croatian sheath, 5/4 left and right Erna, 5/4 pig. The procedure was well tolerated. The patient was returned to [place], sheath removed. Adequate hemostasis was obtained. FINDINGS: LV function in the 30-degree VERA view: Normal wall motion, normal systolic function. CORONARY ANATOMY: LEFT MAIN: Left main is free of disease. LAD: Free of disease in the diagonal system. CIRCUMFLEX: Free of disease in the marginal system. RIGHT CORONARY ARTERY: Dominant artery, gives rise to PDA, free of disease. IMPRESSION: Normal LV systolic function, normal coronary anatomy. TRANSINT:[id number] Voice Confirmation ID: [id number] DOCUMENT ID: [id number] SENAIT ESPITIA MD at 1400 CC: [id number] DICTATION DATE: 11/07/18 1051 ARMHOLE RAISER LOCKSTITCH: 11/07/18 1142 ADM IN [facility] [address] [place] [id number]
--- NOTE | 2018-11-08 14:11 | NUR ---
ALERT AND ORIENTED X4. RESTING IN BED. SINUS RHYTHM ON TELEMETRY. DENIES ANY NEEDS AT THIS TIME. CONTINUE PLAN OF CARE AND SAFETY PRECAUTIONS.
[2018-11-08 15:30] VITALS: BP 132/52
--- NOTE | 2018-11-08 19:45 | NUR ---
NIGHTLY ROUNDS COMPLETED. INTRODUCED MYSELF TO PT PRIMARY RN FOR [facility]. PT IS A&O SITTING UP IN BED RESTING QUIETLY. PT STATES SHE IS HAVING A GOOD DAY AND DENIES ANY CURRENT PAIN OR NEEDS. WILL CHECK LABS AND CHART AND PULL NIGHTLY MEDICATIONS AND CPOC.
[2018-11-08 20:28] VITALS: BP 135/53
--- NOTE | 2018-11-08 22:52 | NUR ---
PT RESTING QUIELTY IN BED DENIES ANY CURRENT PAIN OR NEEDS AND IS READY TO GO TO SLEEP. CL IN REACH, BED IN LOWEST, SIDE RAILS X2. WILL CTM.
[2018-11-09] VITALS (7 sets, daily range): BP systolic 118–148; BP diastolic 47–63
--- NOTE | 2018-11-09 02:42 | NUR ---
PT RESTING QUIETLY IN BED WITH EYES CLOSED. RR NONLABORED ON RA. NO S/S OF DISTRESS OR ANY CURRENT NEEDS AT THIS TIME. CL IN REACH, BED IN LOWEST, SIDE RAILS X2. WILL CTM.
--- NOTE | 2018-11-09 05:11 | NUR ---
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 PROVIDED PT WITH FRESH ICE WATER. SHE STATES SHE SLEPT GOOD AND WOULD LIKE TO SLEEP LONGER. NO CURRENT NEEDS. WILL CTM.
[2018-11-09 06:12] LABS: BASOPHILS 0 % (0-2); EOSINOPHILS 0 % (0-7); HEMATOCRIT 35.1 % (36.0-48.0); HEMOGLOBIN 11.4 g/dL (12-16); IMMATURE GRANULOCYTES 0.2 % (0-5); LYMPHOCYTES 5.3 % (15-50); MCH 28.9 pg (26.0-34.0); MCHC 32.5 g/dL (31.0-37.0); MCV 88.9 fL (80.0-100.0); MEAN PLATELET VOLUME 10.6 fL (7.4-10.4); MONOCYTES 3.7 % (2-11); NEUTROPHILS 90.8 % (40-80); PLATELET COUNT 271 10x3/uL (130-400); RBC 3.95 10x6/uL (4.00-5.40); RDW 12.9 % (11.5-14.5); WBC 8.4 10x3/uL (4.8-10.8)
[2018-11-09 06:37] LABS: ALBUMIN 2.9 g/dL (3.4-5.0); ANION GAP 11.5 mmol/L (8-16); BILIRUBIN - TOTAL 0.26 mg/dL (0.2-1.3); CALCIUM 8.5 mg/dL (8.5-10.1); CARBON DIOXIDE 29.6 mmol/L (21.0-32.0); POTASSIUM - SERUM 5.1 mmol/L (3.5-5.1); PROTEIN - SERUM 5.5 g/dL (6.4-8.2)
--- NOTE | 2018-11-09 07:50 | NUR ---
ASSESSMENT DONE. DENIES NEEDS.
--- NOTE | 2018-11-09 09:05 | NUR ---
I have reviewed this patient and I concur with the Shift Assessment completed by the Licensed Practical Nurse today this shift.
--- NOTE | 2018-11-09 16:58 | NUR ---
WITHOUT CHANGES OR DISTRESS NOTED AT THIS TIME. DENIES NEEDS.
--- NOTE | 2018-11-09 21:27 | NUR ---
HS MEDS GIVEN WITH FRESH ICE WATER. PT DENIES PAIN OR NEEDS.
--- NOTE | 2018-11-10 04:26 | NUR ---
RESTING WITH EYES CLOSED, RESPERATIONS EVEN, NO S/S DISTRESS NOTED.
[2018-11-10 04:30] VITALS: BP 131/70
--- NOTE | 2018-11-10 05:39 | NUR ---
I have reviewed this patient and I concur with the Shift Assessment completed by the Licensed Practical Nurse today this shift.
[2018-11-10 06:20] LABS: BASOPHILS 0 % (0-2); EOSINOPHILS 0.3 % (0-7); HEMATOCRIT 36.5 % (36.0-48.0); HEMOGLOBIN 11.9 g/dL (12-16); IMMATURE GRANULOCYTES 0.3 % (0-5); LYMPHOCYTES 22.7 % (15-50); MCH 29.1 pg (26.0-34.0); MCHC 32.6 g/dL (31.0-37.0); MCV 89.2 fL (80.0-100.0); MEAN PLATELET VOLUME 10.3 fL (7.4-10.4); MONOCYTES 11.6 % (2-11); NEUTROPHILS 65.1 % (40-80); PLATELET COUNT 268 10x3/uL (130-400); RBC 4.09 10x6/uL (4.00-5.40); WBC 8.8 10x3/uL (4.8-10.8)
[2018-11-10 06:51] LABS: ANION GAP 9.6 mmol/L (8-16); BILIRUBIN - TOTAL 0.44 mg/dL (0.2-1.3); CALCIUM 8.4 mg/dL (8.5-10.1); CARBON DIOXIDE 33.7 mmol/L (21.0-32.0); CREATININE - SERUM 0.9 mg/dL (0.6-1.3)
[2018-11-10 06:52] LABS: POTASSIUM - SERUM 4.3 mmol/L (3.5-5.1)
--- NOTE | 2018-11-10 07:35 | NUR ---
ASSESSMENT COMPLETED.ALERT AND ORIENTED. TELEMERTY SHOWS SR 66. LEFT FORE ARM SL. DENIES ANY NEEDS, SR UP WITH CALL LIGHT IN REACH. UP AB HARRIET
[2018-11-10 08:43] VITALS: BP 118/67
--- NOTE | 2018-11-10 11:05 | NUR ---
I have reviewed this patient and I concur with the Shift Assessment completed by the Licensed Practical Nurse today this shift.
[2018-11-10 11:40] VITALS: BP 110/55
--- NOTE | 2018-11-10 13:03 | NUR ---
UP TO BR. NO NEEDS VOICED. WILL MONITOR
--- NOTE | 2018-11-10 16:23 | NUR ---
PT DISCHARHED . IV DCD WITH TIP INTACT. INSTRUCTIONS GIVEN TO PT. TO PRIVATE CAR PER WHEELCHAIR
--- NOTE | 2018-11-11 08:17 | MORECARE ---
CASE MANAGEMENT DISCHARGE SUMMARY PATIENT: GILA GEE UNIT: [id number] ADM DATE: 11/01/18 AGE: 78 : 42 SEX: F ROOM/BED: D.1356 AUTHOR: CHRISTINADOC PHYSICIAN: REFERRING PHYSICIAN: YURY LARSON DO DATE OF SERVICE: 11/11/18 Discharge Plan Patient Name: GILA GEE Facility: [facility]:[place] : 1940 Planned Disposition: Home Anticipated Discharge Date: 11/10/18 Discharge Date: 11/10/2018 Expected LOS: 9 Initial Reviewer: [email or web address] Initial Review Date: 11/03/2018 Generated: 11/11/18 9:17 am DCP- Discharge Planning Updated by [email or web address]: Yaquelin Calvo on 11/03/18 9:[address] Patient Name: GILA GEE Admission Status: Elective Accout number: [id number] Admission Date: 11-01-2018 : 1940 Admission Diagnosis: Attending: YURY LARSON Current LOS: 2 Anticipated DC Date: Planned Disposition: Home Primary Insurance: [facility] [employer] Discharge Planning Comments: CM met with patient to complete initial dc planning assessment. CM educated patient on the CM role and verbal consent given by patient to complete assessment. Patient lives at home with her grown daughter (Edgardo). At discharge patient plans to return and feels this is a safe discharge. CM discussed availability of home health, rehab services, and medical equipment. Patient denied known discharge needs at this time. States she has 5 children, and one of them will take her home on discharge. I asked again about home health and she states she has plenty of help at home and she is still independent and does not need home health. CM will continue to follow and will assist as needed with dc plans/needs. Assembler [employer]: Yaquelin Calvo DCPIA - Discharge Planning Initial Assessment Updated by [email or web address]: Yaquelin Calvo on 11/03/18 10:31 am * Is the patient Alert and Oriented? Yes * How many steps to enter\exit or inside your home? 0/0 * PCP Dr. Larson * Pharmacy [facility] in [place] for short term meds Mail order for maintenance meds * Preadmission Environment Home with Family * ADLs Partial Dependent * Partial ADLs (Assistance needed) Ambulation * Equipment Cane Glucometer Nebulizer Rolling Walker * List name and contact numbers for known caregivers / representatives who currently or will assist patient after discharge: Nadja saldana - [phone] Gila Nguyen - [facility] - [phone] [facility] [place] - [phone] * Verbal permission to speak to the caregivers and representatives has been obtained from the patient. Yes * Community resources currently utilized None * Additional services required to return to the preadmission environment? No * Can the patient safely return to the preadmission environment? Yes * Has this patient been hospitalized within the prior 30 days at any hospital? No Last DP export: 11/03/18 9:34 a Patient Name: GILA GEE Page [phone] at 0817 All edits/amendments must be made on the electronic document DICTATION DATE: 11/11/18816 HIRED HAND: ERIKA 11/11/18816 RPT#: [id number] DC DATE:11/10/18 STATUS: DIS IN [facility] [address] [place] [address] END OF REPORT
== END 2018-11-10 16:26 | disposition home or self-care (01) | DRG 202 ==
LOC: D.M2 12:28 → D.MS 12:28 → D.SDCHOLD 12:28 → D.MS 12:49 → D.M2 11-07 10:26
PROVIDERS: Emergency Medicine; Internal Medicine Interventional Cardiology; Internal Medicine Nephrology; Internal Medicine Pulmonary Disease; ADMIT Family Medicine; ATTEND Family Medicine
PROC: B2151ZZ Fluoroscopy of Left Heart using Low Osmolar Contrast (ICD-10-PCS; 2018-11-07)
PROC: 4A023N7 Measurement of Cardiac Sampling and Pressure, Left Heart, Percutaneous Approach (ICD-10-PCS; 2018-11-07)
PROC: B2111ZZ Fluoroscopy of Multiple Coronary Arteries using Low Osmolar Contrast (ICD-10-PCS; principal; 2018-11-07 09:50)
DX: J20.9 Acute bronchitis, unspecified (principal); J44.1 Chronic obstructive pulmonary disease with (acute) exacerbation; J45.901 Unspecified asthma with (acute) exacerbation; I50.22 Chronic systolic (congestive) heart failure; J44.0 Chronic obstructive pulmonary disease with (acute) lower respiratory infection; E11.69 Type 2 diabetes mellitus with other specified complication; K21.9 Gastro-esophageal reflux disease without esophagitis; E66.9 Obesity, unspecified; I11.0 Hypertensive heart disease with heart failure; E78.5 Hyperlipidemia, unspecified; E03.9 Hypothyroidism, unspecified; E11.65 Type 2 diabetes mellitus with hyperglycemia; Z68.32 Body mass index [BMI] 32.0-32.9, adult; D64.9 Anemia, unspecified

== ENCOUNTER → 2018-12-30 14:46 | Outpatient (CLI) | payer MEDICARE ==
[2018-11-02 12:21] VITALS: BMI 32.7
[~2018-12-30 14:46] MED LIST changes: +COLACE100 MG PO; +PULMICORT0.5 MG/21 INH; +Tessalon Perle PO; +ZITHROMAX250 MG PO
== END | disposition home or self-care (01) ==
LOC: D.CT 14:46
PROVIDERS: ATTEND Family Medicine
DX: R05 Cough (principal); K76.9 Liver disease, unspecified

== ENCOUNTER 2019-02-01 08:56 | Inpatient (IN) | payer MEDICARE ==
[~2019-02-01] VITALS: Ht 165.1 cm; Wt 89.4 kg
--- NOTE | 2019-02-01 09:20 | NUR ---
RECEIVED TO ROOM [address] LARSON;S OFFICE. A/O X3. NO C/O AT THIS TIME. DENIES NEEDS. SKIN IS INTACT WITHOUT REDNESS. FAMILY AT BEDSIDE.
[2019-02-01 09:37] VITALS: BP 149/86
[2019-02-01 10:18] VITALS: BP 162/78; BMI 32.8
[2019-02-01 10:18] LABS: BASOPHILS 1.1 % (0-2); EOSINOPHILS 14.8 % (0-7); HEMATOCRIT 36.2 % (36.0-48.0); HEMOGLOBIN 12.1 g/dL (12-16); LYMPHOCYTES 14.7 % (15-50); MCH 29.6 pg (26.0-34.0); MCHC 33.4 g/dL (31.0-37.0); MCV 88.5 fL (80.0-100.0); MEAN PLATELET VOLUME 9.6 fL (7.4-10.4); MONOCYTES 6.4 % (2-11); PLATELET COUNT 296 10x3/uL (130-400); RBC 4.09 10x6/uL (4.00-5.40); RDW 12.7 % (11.5-14.5); WBC 7.6 10x3/uL (4.8-10.8)
[2019-02-01 10:23] VITALS: BP 162/78; BMI 32.8
[2019-02-01 10:34] LABS: ALBUMIN 3.3 g/dL (3.4-5.0); ANION GAP 10.5 mmol/L (8-16); BILIRUBIN - TOTAL 0.39 mg/dL (0.2-1.3); CALCIUM 9.1 mg/dL (8.5-10.1); CARBON DIOXIDE 31.2 mmol/L (21.0-32.0); CREATININE - SERUM 0.9 mg/dL (0.6-1.3); POTASSIUM - SERUM 3.7 mmol/L (3.5-5.1); PROTEIN - SERUM 6.8 g/dL (6.4-8.2)
--- NOTE | 2019-02-01 10:38 | NUR ---
IV SITED TO RIGHT FOREARM AFTER ONE ATTEMPT WITH 20G. DENIES NEEDS.
[2019-02-01 13:11] VITALS: BP 115/53
[2019-02-01 14:45] LABS: APPEARANCE CLEAR (CLEAR); COLOR YELLOW (YELLOW); NITRITE NEGATIVE (NEGATIVE); PROTEIN NEGATIVE (NEGATIVE); SPECIFIC GRAVITY 1.005 (1.005-1.020)
[2019-02-01 14:46] LABS: BILIRUBIN NEGATIVE (NEGATIVE); EPITHELIAL CELLS 0-5 /hpf (0-5); GLUCOSE NEGATIVE (NEGATIVE); KETONE NEGATIVE (NEGATIVE); RED CELLS - URINE 0-5 /hpf (0-5); UROBILINOGEN NORMAL (NORMAL); WHITE CELLS - URINE 0-5 /hpf (0-5)
[2019-02-01 14:47] LABS: BACTERIA MANY /hpf (NONE SEEN)
[2019-02-01 16:31] VITALS: BP 122/58
--- NOTE | 2019-02-01 19:14 | NUR ---
ATE ABOUT HALF OF SUPPER. DENIES NEEDS. NO CHANGES NOTED.
[2019-02-01 21:49] VITALS: BP 125/60
--- NOTE | 2019-02-02 | NUR ---
PT REPORTS SHE HAS OCCASIONAL PRODUCTIVE COUGH. LUNG SOUNDS CTA, DIMINISHED IN LOWER LOBES. DENIES PAIN OR SOB. WILL CONTINUE TO MONITOR.
[2019-02-02 02:49] VITALS: BP 127/55
--- NOTE | 2019-02-02 03:27 | NUR ---
I have reviewed this patient and I concur with the Shift Assessment completed by the Licensed Practical Nurse today this shift.
[2019-02-02 04:44] LABS: BASOPHILS 0.5 % (0-2); EOSINOPHILS 0 % (0-7); HEMATOCRIT 37.3 % (36.0-48.0); HEMOGLOBIN 12.4 g/dL (12-16); LYMPHOCYTES 8.9 % (15-50); MCH 29.5 pg (26.0-34.0); MCHC 33.2 g/dL (31.0-37.0); MCV 88.8 fL (80.0-100.0); MEAN PLATELET VOLUME 10.2 fL (7.4-10.4); MONOCYTES 0.7 % (2-11); NEUTROPHILS 89.9 % (40-80); PLATELET COUNT 317 10x3/uL (130-400); RDW 12.4 % (11.5-14.5)
[2019-02-02 04:46] LABS: WBC 5.6 10x3/uL (4.8-10.8)
[2019-02-02 05:21] LABS: ALBUMIN 3.3 g/dL (3.4-5.0); BILIRUBIN - TOTAL 0.38 mg/dL (0.2-1.3); CARBON DIOXIDE 26.3 mmol/L (21.0-32.0); MAGNESIUM - SERUM 1.8 mg/dL (1.8-2.4); PHOSPHOROUS 4.2 mg/dL (2.5-4.9); PROTEIN - SERUM 6.9 g/dL (6.4-8.2)
[2019-02-02 05:24] LABS: POTASSIUM - SERUM 4.3 mmol/L (3.5-5.1)
[2019-02-02 06:29] VITALS: BP 145/68
--- NOTE | 2019-02-02 07:10 | NUR ---
PT SITTING UP IN BED WATCHING TV. NO ACUTE DISTRESS NOTED AT THIS TIME. O2 @ 2L NC IN PLACE. DENIES PAIN AT THIS TIME. IV TO RIGHT WRIST WITH NS @ 20ML/HR INFUSING VIA PUMP. SITE WITHOUT REDNESS OR EDEMA. TELEMETRY IN PLACE, 94 SR AT THIS TIME. DENIES FURTHER NEEDS AT THIS TIME. CL WITHIN REACH. ENCOURAGED TO CALL WITH NEEDS. CONTINUE POC
[2019-02-02 09:52] VITALS: Ht 165.1 cm; Wt 89.4 kg
[2019-02-02 10:26] VITALS: BP 142/66
[2019-02-02 12:43] VITALS: BP 151/62
--- NOTE | 2019-02-02 19:15 | NUR ---
A&O X 4. AMBULATORY. REPORTS OCCASIONAL PRODUCTIVE COUGH. CRACKLES AUSCULTATED IN RLL. LUNG SOUNDS ON THE LEFT SIDE DIMINISHED. PT ADMITS TO PAIN AT IV SITE IN RIGHT FOREARM. AREA SURROUNDING IV SITE IS EDEMATOUS. IV DCd WITH CATHETER INTACT. 22G RESITED TO LEFT FOREARM, 1ST ATTEMPT. DENIES FURTHER NEEDS. WILL CONTINUE TO MONITOR.
[2019-02-02 20:59] VITALS: BP 120/61
--- NOTE | 2019-02-02 22:45 | NUR ---
RECEIVED CALL FROM MONITORS, PTs HAD RUN OF 12 PVCS IN A ROW. PT IN ROOM COUGHING WHILE RECEIVING BREATHING TX. DENIES ANY DISTRESS. WILL CONTINUE TO MONITOR.
[2019-02-03 01:02] VITALS: BP 118/64
--- NOTE | 2019-02-03 03:05 | NUR ---
I have reviewed this patient and I concur with the Shift Assessment completed by the Licensed Practical Nurse today this shift.
[2019-02-03 04:55] VITALS: BP 112/79
[2019-02-03 05:11] LABS: BASOPHILS 0 % (0-2); EOSINOPHILS 0 % (0-7); HEMATOCRIT 34.4 % (36.0-48.0); HEMOGLOBIN 11.3 g/dL (12-16); IMMATURE GRANULOCYTES 0.3 % (0-5); LYMPHOCYTES 7.3 % (15-50); MCHC 32.8 g/dL (31.0-37.0); MCV 88.2 fL (80.0-100.0); MONOCYTES 1.7 % (2-11); NEUTROPHILS 90.7 % (40-80); PLATELET COUNT 291 10x3/uL (130-400); RDW 12.3 % (11.5-14.5); WBC 6.3 10x3/uL (4.8-10.8)
[2019-02-03 05:36] LABS: ANION GAP 10.4 mmol/L (8-16); CALCIUM 8.7 mg/dL (8.5-10.1); CARBON DIOXIDE 30.1 mmol/L (21.0-32.0); CREATININE - SERUM 0.9 mg/dL (0.6-1.3); MAGNESIUM - SERUM 1.8 mg/dL (1.8-2.4); PHOSPHOROUS 3.5 mg/dL (2.5-4.9); POTASSIUM - SERUM 4.5 mmol/L (3.5-5.1)
--- NOTE | 2019-02-03 07:25 | NUR ---
PT RESTING IN BED. NO ACUTE DISTRESS NOTED. O2 @ 2L NC IN PLACE. DENIES PAIN AT THIS TIME. IV TO LEFT FOREARM WITH NS @ KVO INFUSING VIA PUMP. SITE WITHOUT REDNESS OR EDEMA. DENIES FURTHER NEEDS AT THIS TIME. CL WITHIN REACH. ENCOURAGED TO CALL WITH NEEDS. CONTINUE POC
[2019-02-03 08:07] VITALS: BP 107/68
[2019-02-03 13:13] VITALS: BP 137/60
[2019-02-03 15:22] LABS: T4 THYROXIN - FREE 1.84 ng/dL (0.76-1.46); THYROID STIMULATING HORMONE 0.11 uIU/mL (0.36-3.74)
[2019-02-03 16:21] VITALS: BP 133/61
--- NOTE | 2019-02-03 18:15 | NUR ---
COMPLAINING OF PAIN AT IV SITE. SOME SWELLING AND REDNESS NOTED AT SITE. DC IV WITH CATH INTACT. RESITED IV TO THE RT FOREARM. A/O X4 WITH NO SIGNS OF DISTRESS NOTED. DENIES OTHER NEEDS AT THIS TIME. CONITUE WITH PLAN OF CARE.
[2019-02-03 21:25] VITALS: BP 131/54
[2019-02-04 01:24] VITALS: BP 146/48
[2019-02-04 05:44] VITALS: BP 147/69
[2019-02-04 06:39] LABS: BASOPHILS 0 % (0-2); EOSINOPHILS 0 % (0-7); HEMATOCRIT 33.2 % (36.0-48.0); IMMATURE GRANULOCYTES 0.3 % (0-5); LYMPHOCYTES 5.4 % (15-50); MCH 29.3 pg (26.0-34.0); MCHC 33.1 g/dL (31.0-37.0); MCV 88.3 fL (80.0-100.0); MEAN PLATELET VOLUME 10.2 fL (7.4-10.4); MONOCYTES 2.5 % (2-11); NEUTROPHILS 91.8 % (40-80); PLATELET COUNT 299 10x3/uL (130-400); RBC 3.76 10x6/uL (4.00-5.40); RDW 12.5 % (11.5-14.5); WBC 7.6 10x3/uL (4.8-10.8)
[2019-02-04 07:00] LABS: ANION GAP 9.1 mmol/L (8-16); CALCIUM 8.4 mg/dL (8.5-10.1); CARBON DIOXIDE 29.9 mmol/L (21.0-32.0); MAGNESIUM - SERUM 1.8 mg/dL (1.8-2.4); PHOSPHOROUS 3.4 mg/dL (2.5-4.9)
--- NOTE | 2019-02-04 08:11 | NUR ---
AWAKE AND ALERT. ORIENTED X3. LUNGS HAVE EXPIRATORY WHEEZES IN UPPER LOBES. REPORTS PRODUCTIVE COUGH. WILL MONITOR. SKIN IS INTACT WTIHOUT REDNESS. IV TO RIGHT FOREARM IS PATENT WITHOUT REDNESS AT INSERTION SITE. DENIES NEEDS.
[2019-02-04 09:04] VITALS: BP 150/69
--- NOTE | 2019-02-04 09:30 | NUR ---
ATE ALL OF BREAKFAST. TOOK AM MEDS WITHOUT DIFFICUTLY. UP TO SHOWER WITH SET UP ASSISTANCE ONLY.
--- NOTE | 2019-02-04 11:28 | NUR ---
AMBULATED 250 FEET WITH SBA ON RA. O2 SAT STAYED AT 98%.
--- NOTE | 2019-02-04 12:00 | NUR ---
FSBS 250. GIVEN 8 UNITS HUMALOG SUBQ PER SS.
[2019-02-04 12:42] VITALS: BP 111/60
--- NOTE | 2019-02-04 14:29 | NUR ---
ATE MOST OF LUNCH. RESTING QUIETLY IN BED AT THIS TIME. ENCOURAGED TO BE OOB MUCH POSSIBLE.
[2019-02-04 16:22] VITALS: BP 143/50
--- NOTE | 2019-02-04 19:12 | NUR ---
RESTING QUIETLY IN BED. ATE ALL OF SUPPER. IV TO RIGHT FOREARM SWOLLEN. D/C WITH CATHETER INTACT. WARM MOIST HEAT APPLIED TO AREA. RESITED TO LEFT FOREARM AFTER 2 ATTEMPTS WTIH 22 G. DENIES NEEDS.
[2019-02-04 19:26] VITALS: BP 149/54
--- NOTE | 2019-02-04 20:00 | NUR ---
PT LAYING IN BED WITH NO DISTRESS NOTED, A/O. DENIES PAIN OR OTHER NEEDS AT THIS TIME. CONTIUE WITH PLAN OF CARE.
--- NOTE | 2019-02-04 23:35 | NUR ---
STARTED TO YELL HELP AT THE DOOR ENTRANCE. PT DISPLAYS LABORED BREATHING AND O2 SAT @ 69. STATED THAT SHE TOOK OFF HER O2 TO USE THE BATHROOM AND LOST HER BREATH. PLACED PT ON SIDE OF BED, PLACED NC ON, AND ENCOURAGED DEEP BREATHS. O2 SHAHRZAD UP TO 90% AND BREATHING BECAME UNLABORED. PLACED NC EXTENTION ON SO SHE CAN USE THE BATHROOM WITHOUT HAVING TO TAKE O2 OFF. WILL CONTIUE TO MONITOR.
--- NOTE | 2019-02-05 00:15 | NUR ---
PT LAYING IN BED WITH NO SIGNS OF DISTRESS NOTED AND O2 AT 96%. VOICES THAT SHE FEELS FINE. WILL CONTIUE TO MONITOR.
[2019-02-05 01:30] VITALS: BP 150/56
[2019-02-05 05:01] VITALS: BP 155/59
[2019-02-05 06:03] LABS: BASOPHILS 0 % (0-2); EOSINOPHILS 0 % (0-7); HEMATOCRIT 34.9 % (36.0-48.0); HEMOGLOBIN 11.7 g/dL (12-16); IMMATURE GRANULOCYTES 0.3 % (0-5); LYMPHOCYTES 6.4 % (15-50); MCH 29.4 pg (26.0-34.0); MCHC 33.5 g/dL (31.0-37.0); MCV 87.7 fL (80.0-100.0); MEAN PLATELET VOLUME 10.4 fL (7.4-10.4); MONOCYTES 8.1 % (2-11); NEUTROPHILS 85.2 % (40-80); PLATELET COUNT 290 10x3/uL (130-400); RBC 3.98 10x6/uL (4.00-5.40); RDW 12.3 % (11.5-14.5); WBC 7.7 10x3/uL (4.8-10.8)
[2019-02-05 06:42] LABS: ANION GAP 11.9 mmol/L (8-16); CALCIUM 8.4 mg/dL (8.5-10.1); CREATININE - SERUM 0.8 mg/dL (0.6-1.3); MAGNESIUM - SERUM 1.9 mg/dL (1.8-2.4); PHOSPHOROUS 3.7 mg/dL (2.5-4.9); POTASSIUM - SERUM 3.9 mmol/L (3.5-5.1)
[2019-02-05 08:20] VITALS: BP 141/40
[2019-02-05 13:25] VITALS: BP 147/54
--- NOTE | 2019-02-05 15:39 | NUR ---
PT RESTING IN BED. NO SIGNS OF DISTRESS. IV TO LEFT FORARM PATENT NO REDNESS OR TENDERNESS. ON TELEMETRY 61 SR. ON 2L NC. DENIES ANY FUTHER NEED AT THIS TIME. CALL LIGHT IN REACH. BED LOW POSITION. NO FAMILY AT BEDSIDE AT THIS TIME.
[2019-02-05 16:39] VITALS: BP 127/47
--- NOTE | 2019-02-05 18:24 | NUR ---
I have reviewed this patient and I concur with the Shift Assessment completed by the Licensed Practical Nurse today this shift.
[2019-02-05 20:00] VITALS: BP 127/54
--- NOTE | 2019-02-05 21:40 | NUR ---
A/O X4 AND SHOWS NO SIGNS OF DISTRESS. DENIES PAIN OR OTHER NEEDS. WILL CONTINUE TO MONITOR.
[2019-02-06 04:00] VITALS: BP 151/62
[2019-02-06 04:45] LABS: BASOPHILS 0 % (0-2); EOSINOPHILS 0 % (0-7); HEMATOCRIT 35.2 % (36.0-48.0); HEMOGLOBIN 11.5 g/dL (12-16); IMMATURE GRANULOCYTES 0.3 % (0-5); LYMPHOCYTES 6.4 % (15-50); MCH 28.9 pg (26.0-34.0); MCHC 32.7 g/dL (31.0-37.0); MCV 88.4 fL (80.0-100.0); MEAN PLATELET VOLUME 10.1 fL (7.4-10.4); MONOCYTES 3.6 % (2-11); NEUTROPHILS 89.7 % (40-80); PLATELET COUNT 281 10x3/uL (130-400); RBC 3.98 10x6/uL (4.00-5.40); RDW 12.2 % (11.5-14.5); WBC 7.2 10x3/uL (4.8-10.8)
[2019-02-06 04:59] LABS: ANION GAP 7.6 mmol/L (8-16); CALCIUM 8.4 mg/dL (8.5-10.1); CARBON DIOXIDE 31.8 mmol/L (21.0-32.0); CREATININE - SERUM 0.9 mg/dL (0.6-1.3); MAGNESIUM - SERUM 1.8 mg/dL (1.8-2.4); PHOSPHOROUS 3.5 mg/dL (2.5-4.9); POTASSIUM - SERUM 4.4 mmol/L (3.5-5.1)
[2019-02-06 08:49] VITALS: BP 141/88
[2019-02-06 12:44] VITALS: BP 162/72
--- NOTE | 2019-02-06 13:16 | MORECARE ---
CASE MANAGEMENT DISCHARGE SUMMARY PATIENT: MARYBETH GEE UNIT: [id number] ADM DATE: 02/01/19 AGE: 78 : 42 SEX: F ROOM/BED: D.2206 AUTHOR: DREW VASQUEZ PHYSICIAN: REFERRING PHYSICIAN: YURY LARSON DO DATE OF SERVICE: 02/06/19 Discharge Plan Patient Name: MARYBETH GEE Facility: [facility]:[place] : 1940 Planned Disposition: Home or Self Care Anticipated Discharge Date: Discharge Date: Expected LOS: Initial Reviewer: [email or web address] Initial Review Date: 02/01/2019 Generated: 02/06/19 2:16 pm Comments DCP- Discharge Planning Updated by [email or web address]: Hilda Pena on 02/06/19 12:[address] Patient Name: MARYBETH GEE Admission Status: Elective Accout number: [id number] Admission Date: 02-01-2019 : 1940 Admission Diagnosis:CHRONIC OBSTRUCTIVE PULMONARY DISEASE W (ACUTE) EXACERB Attending: YURY LARSON Current LOS: 5 Anticipated DC Date: Planned Disposition: Primary Insurance: [facility] MEDICARE SOLUTIONS Discharge Planning Comments: CM met with patient to complete initial dc planning assessment. CM educated patient on the CM role and verbal consent given by patient to complete assessment. Patient lives in [facility] where she is independent with her care. At discharge patient plans to return home and feels this is a safe discharge. CM discussed availability of home health, rehab services, and medical equipment. Her daughter will be her production truck driver home. Patient has a walker, cane, nebulizer, glucometer at home. She did not qualify for O2, she was 93% with ambulation on Room Air. IMM served and explained. Patient denied known discharge needs at this time. CM will continue to follow and will assist as needed with dc plans/needs. Event Coordinator Marketing [employer] Sales: Hilda Pena DCPIA - Discharge Planning Initial Assessment Updated by [email or web address]: Hilda Pena on 02/06/19 1:08 pm * Is the patient Alert and Oriented? Yes * How many steps to enter\exit or inside your home? * PCP NEO * Pharmacy [facility] IN [place] * Preadmission Environment Home with Family * ADLs Independent * Equipment Cane Glucometer Nebulizer Rolling Walker * List name and contact numbers for known caregivers / representatives who currently or will assist patient after discharge: MARYBETH ALEXANDRA DAUGHTER [phone] * Verbal permission to speak to the caregivers and representatives has been obtained from the patient. N/A * Community resources currently utilized None * Additional services required to return to the preadmission environment? No * Can the patient safely return to the preadmission environment? Yes * Has this patient been hospitalized within the prior 30 days at any hospital? No Coverage Notice Reviewer: [email or web address] [place] Notice Issued Date-Time: 02/06/2019 13:00 Notice Type: IM Discharge Notice Notice Delivered To: Patient Relationship to Patient: Bleach Boiler Puller Name: Delivery Method: HAND - Hand Delivered Kiya Days: Prior Verbal Notification: Recipient Understood Notice: Yes Recipient Signature: Yes Med Rec Note Co-signed by Attending: Coverage Notice Comment: Patient Name: MARYBETH GEE Page 54566 at 1316 All edits/amendments must be made on the electronic document DICTATION DATE: 02/06/19 1316 SKIDDER DRIVER: ERIKA 02/06/19 1316 RPT#: [id number] DC DATE: STATUS: ADM IN [facility] [address] [place] [address] END OF REPORT
[2019-02-06] MEDS ORDERED: DOXYCYCLINE HY100 M2 PO (14:53)
[2019-02-06] MEDS ORDERED: OMNICEF300 MG PO (14:55)
[2019-02-06] MEDS ORDERED: PREDNISONE10 MG PO (14:57)
--- NOTE | 2019-02-07 13:21 | MORECARE ---
CASE MANAGEMENT DISCHARGE SUMMARY PATIENT: MARYBETH GEE UNIT: [id number] ADM DATE: 02/01/19 AGE: 78 : 42 SEX: F ROOM/BED: D.2206 AUTHOR: DREW VASQUEZ PHYSICIAN: REFERRING PHYSICIAN: YURY LARSON DO DATE OF SERVICE: 02/07/19 Discharge Plan Patient Name: MARYBETH GEE Facility: [facility]:[place] : 1940 Planned Disposition: Home or Self Care Anticipated Discharge Date: Discharge Date: 02/06/2019 Expected LOS: Initial Reviewer: [email or web address] Initial Review Date: 02/01/2019 Generated: 02/07/19 2:20 pm Comments DCP- Discharge Planning Updated by [email or web address]: Hilda Pena on 02/06/19 12:[address] Patient Name: MARYBETH GEE Admission Status: Elective Accout number: [id number] Admission Date: 02-01-2019 : 1940 Admission Diagnosis:CHRONIC OBSTRUCTIVE PULMONARY DISEASE W (ACUTE) EXACERB Attending: YURY LARSON Current LOS: 5 Anticipated DC Date: Planned Disposition: Primary Insurance: [facility] MEDICARE SOLUTIONS Discharge Planning Comments: CM met with patient to complete initial dc planning assessment. CM educated patient on the CM role and verbal consent given by patient to complete assessment. Patient lives in [facility] where she is independent with her care. At discharge patient plans to return home and feels this is a safe discharge. CM discussed availability of home health, rehab services, and medical equipment. Her daughter will be her cdl driver home. Patient has a walker, cane, nebulizer, glucometer at home. She did not qualify for O2, she was 93% with ambulation on Room Air. IMM served and explained. Patient denied known discharge needs at this time. CM will continue to follow and will assist as needed with dc plans/needs. Pick And Shovel Man: Hilda Pena DCPIA - Discharge Planning Initial Assessment Updated by [email or web address]: Hilda Pena on 02/06/19 1:08 pm * Is the patient Alert and Oriented? Yes * How many steps to enter\exit or inside your home? * PCP NEO * Pharmacy [facility] IN [place] * Preadmission Environment Home with Family * ADLs Independent * Equipment Cane Glucometer Nebulizer Rolling Walker * List name and contact numbers for known caregivers / representatives who currently or will assist patient after discharge: MARYBETH ALEXANDRA DAUGHTER [phone] * Verbal permission to speak to the caregivers and representatives has been obtained from the patient. N/A * Community resources currently utilized None * Additional services required to return to the preadmission environment? No * Can the patient safely return to the preadmission environment? Yes * Has this patient been hospitalized within the prior 30 days at any hospital? No Coverage Notice Reviewer: [email or web address] [place] Notice Issued Date-Time: 02/06/2019 13:00 Notice Type: IM Discharge Notice Notice Delivered To: Patient Relationship to Patient: Documentation Nurse Name: Delivery Method: HAND - Hand Delivered Kiya Days: Prior Verbal Notification: Recipient Understood Notice: Yes Recipient Signature: Yes Med Rec Note Co-signed by Attending: Coverage Notice Comment: Last DP export: 02/06/19 12:16 p Patient Name: MARYBETH GEE Page [phone] at 1321 All edits/amendments must be made on the electronic document DICTATION DATE: 02/07/19 1320 STAFF RADIOLOGIST: ERIKA 02/07/19 1320 RPT#: [id number] DC DATE:02/06/19 STATUS: DIS IN [facility] [address] [place] [address] END OF REPORT
[2019-03-13] MEDS ORDERED: NORVASC10 MG PO (11:24)
[2019-03-13] MEDS ORDERED: TYLENOL W/CODEI1 TAB PO (11:26)
[2019-03-13] MEDS ORDERED: PHENERGAN25 M1 PO (11:27)
[2019-03-13] MEDS ORDERED: ALBUTEROL SULF8.5 GM INH (11:28)
== END 2019-02-06 17:37 | disposition home or self-care (01) | DRG 202 ==
LOC: D.SDCHOLD 08:56 → D.MS 08:58 → D.M2 08:58 → D.MS 09:07
PROVIDERS: Internal Medicine Nephrology; ADMIT Family Medicine; ATTEND Family Medicine
DX: J20.9 Acute bronchitis, unspecified (principal); J44.1 Chronic obstructive pulmonary disease with (acute) exacerbation; N39.0 Urinary tract infection, site not specified; I50.32 Chronic diastolic (congestive) heart failure; R78.81 Bacteremia; E03.9 Hypothyroidism, unspecified; E11.9 Type 2 diabetes mellitus without complications; K21.9 Gastro-esophageal reflux disease without esophagitis; M19.90 Unspecified osteoarthritis, unspecified site; I11.0 Hypertensive heart disease with heart failure

== ENCOUNTER 2019-03-15 05:20 | Day surgery (SDC) | payer MEDICARE ==
[2019-03-13 12:36] LABS: BASOPHILS 0.9 % (0-2); EOSINOPHILS 9.7 % (0-7); HEMATOCRIT 36.3 % (36.0-48.0); IMMATURE GRANULOCYTES 0.1 % (0-5); LYMPHOCYTES 19.9 % (15-50); MCH 29.2 pg (26.0-34.0); MCHC 33.1 g/dL (31.0-37.0); MCV 88.3 fL (80.0-100.0); MEAN PLATELET VOLUME 9.8 fL (7.4-10.4); MONOCYTES 7.6 % (2-11); NEUTROPHILS 61.8 % (40-80); PLATELET COUNT 303 10x3/uL (130-400); RBC 4.11 10x6/uL (4.00-5.40); RDW 12.5 % (11.5-14.5); WBC 7.7 10x3/uL (4.8-10.8)
[2019-03-13 12:44] LABS: ANION GAP 9.6 mmol/L (8-16); CALCIUM 8.6 mg/dL (8.5-10.1); CARBON DIOXIDE 30.8 mmol/L (21.0-32.0); CREATININE - SERUM 0.9 mg/dL (0.6-1.3); POTASSIUM - SERUM 4.4 mmol/L (3.5-5.1)
[~2019-03-15] VITALS: Ht 165.1 cm; Wt 88.9 kg
--- NOTE | ~2019-03-15 | OP ---
PATIENT NAME: MARYBETH GEE MEDICAL RECORD: [id number] :44 LOCATION:D.OPS ADMISSION DATE: SURGEON: GAURANG MENDOZA DO DATE OF OPERATION: 03/15/2019 PREOPERATIVE DIAGNOSIS: Right ovarian cyst. POSTOPERATIVE DIAGNOSES: Right ovarian cyst, intra-abdominal adhesions. PRIMARY SURGEON: Gaurang Mendoza DO TIPPLE REPAIRER SURGEON: Minor Welsh MD ANESTHESIA: Miladis Bedoya CRNA PROCEDURE: Laparoscopic right oophorectomy and lysis of adhesions. FINDINGS: Normal-appearing external genitalia, normal-appearing vaginal vault, stenotic and atrophic cervix. Uterus retroverted, sounded to 8 cm, intra-abdominal adhesions. Normal appearing uterus, left fallopian tube and left ovary, normal appearing right fallopian tube and enlarged right ovary. SPECIMENS: Right ovary and fallopian tube. ESTIMATED BLOOD LOSS: 5 cc. IV FLUIDS: 800 cc. COMPLICATIONS: None. CONDITION: Stable. PROCEDURE IN DETAIL: The risks, benefits, alternatives and indications of the procedure were discussed with the patient. She voiced understanding of the procedure and signed the consent. She was taken to the OR where general anesthesia was administered and found to be adequate. She was placed in the dorsal lithotomy position. She was prepped and draped in the normal sterile fashion. A speculum was placed in the posterior aspect of the vagina and a single tooth tenaculum was used to grasp the anterior lip of the cervix. The cervix was dilated to accommodate a VCare uterine manipulator. The uterus was sounded to 8 cm and the VCare uterine manipulator was placed. A Walker was placed. Attention was then turned to the abdomen and gloves were changed. An OG tube had been placed by anesthesia. Decision was made to enter the abdomen through Espinosa's point due to suspicion of intra-abdominal adhesions from previous surgery. A 5-mm incision was made at Espinosa's point and the abdomen was elevated. Veress needle was placed into the abdomen with correct placement noted with saline drop test. A 5-mm port was placed with visualization with the laparoscope. Attention was then turned to the right lower quadrant where another 5-mm port was placed under direct laparoscopic visualization as well as a 11-mm port in the left lower quadrant under direct laparoscopic visualization. Intraabdominal adhesions at the umbilicus was noted and lysis of adhesions was performed with the Thunderbeat. The uterus was elevated out of the abdomen. The patient was placed in Trendelenburg position. Enlarged right ovary was noted. The ovary was grasped and the right IP ligament was ligated with Thunderbeat and the ovary was removed. The ovary and fallopian tube were placed OPERATIVE REPORT [id number] MARYBETH GEE in an Endobag and removed through the 11-mm laparoscopic port. The pelvis was irrigated with warm sterile saline and hemostasis was noted to be adequate. The 11-mm port site was closed with 0 Vicryl in a running fashion with good hemostasis at the fascia. All pneumoperitoneum was released from the abdomen and all ports were removed from the abdomen. The patient was taken out of Trendelenburg position. The skin was closed with 3-0 Monocryl with good hemostasis with Dermabond. The patient tolerated the procedure well. She was awakened and taken to recovery room in stable condition. TRANSINT:[id number] Voice Confirmation ID: [id number] DOCUMENT ID: [id number] GAURANG MENDOZA DO CC: [id number] DICTATION DATE: 03/15/19907 COMBER TENDER: 03/15/19 1525 [facility] 03/15/19 [facility] [address] [place] [address]
[~2019-03-15 05:20] MED LIST changes: +ALBUTEROL SULF8.5 GM INH; +DOXYCYCLINE HY100 M2 PO; +PHENERGAN25 M1 PO; +TYLENOL W/CODEI1 TAB PO
[2019-03-15 06:39] VITALS: BP 117/58; Ht 165.1 cm; Wt 88.9 kg
--- NOTE | 2019-03-15 11:48 | NUR ---
DC INSTRUCTIONS GIVEN TO PT. STATES UNDERSTANDING. PT DENIES PAIN/NEEDS AT THIS TIME. WILL CONTINUE TO MONITOR.
== END 2019-03-15 12:20 | disposition home or self-care (01) ==
LOC: D.OPS 05:20 → D.PAN 07:30 → D.OPS 07:30
PROVIDERS: Anesthesiology; ATTEND Student in an Organized Health Care Education/Training Program
DX: N83.201 Unspecified ovarian cyst, right side (principal); N85.4 Malposition of uterus; K66.0 Peritoneal adhesions (postprocedural) (postinfection)

== ENCOUNTER 2019-06-08 10:32 | Inpatient (IN) | payer MEDICARE ==
[~2019-06-08] VITALS: Ht 165.1 cm; Wt 90.9 kg
[~2019-06-08 10:32] MED LIST changes: -DEMADEX10 MG PO; +TORSEMIDE20 MG PO
[2019-06-08] MEDS ORDERED: OMEPRAZOLE20 M1 PO (11:11)
[2019-06-08] MEDS ORDERED: ISOSORBIDE DINI30 MG PO (11:12)
[2019-06-08] MEDS ORDERED: LINZESS72 MCG PO (11:14)
[2019-06-08] MEDS ORDERED: VITAMIN D31000 UNIT PO (11:15)
[2019-06-08] MEDS ORDERED: OMEGA-3100 MG PO (11:15)
[2019-06-08] MEDS ORDERED: XALATAN 0.0052.5 ML EACH EYE (11:19)
--- NOTE | 2019-06-08 11:23 | NUR ---
RECEIVED PT FROM ADMISSIONS VIA WHEELCHAIR WITH FAMILY. PT IS AAO AND UP AD HARRIET. RR LABORED ON EXERTION ON RA. VSS AND WNL. 2L 02 PLACED ON PT NC. PRODUCTIVE FREQUENT COUGH NOTED. NO FURTHER S/S OF DISTRESS NOTED. PT CURRENTLY SITTING UP IN CHAIR. ORIENTED TO ROOM. CALL LIGHT W/I REACH. FAMILY AT BEDSIDE. WILL CTM. QUICKSTART, MED REQ, HISTORY COMPLETE. TELEMETRY PLACED ON PT. WILL CTM.
[2019-06-08 11:53] LABS: BASOPHILS 0.8 % (0-2); EOSINOPHILS 11.9 % (0-7); HEMATOCRIT 38.6 % (36.0-48.0); HEMOGLOBIN 12.4 g/dL (12-16); IMMATURE GRANULOCYTES 0.1 % (0-5); LYMPHOCYTES 18.4 % (15-50); MCHC 32.1 g/dL (31.0-37.0); MCV 90.2 fL (80.0-100.0); MEAN PLATELET VOLUME 9.7 fL (7.4-10.4); MONOCYTES 5.2 % (2-11); NEUTROPHILS 63.6 % (40-80); PLATELET COUNT 322 10x3/uL (130-400); RBC 4.28 10x6/uL (4.00-5.40); RDW 12.3 % (11.5-14.5); WBC 7.6 10x3/uL (4.8-10.8)
[2019-06-08 12:10] LABS: ALBUMIN 3.4 g/dL (3.4-5.0); ANION GAP 8.7 mmol/L (8-16); BILIRUBIN - TOTAL 0.33 mg/dL (0.2-1.3); CARBON DIOXIDE 29.7 mmol/L (21.0-32.0); CREATININE - SERUM 0.9 mg/dL (0.6-1.3); POTASSIUM - SERUM 4.4 mmol/L (3.5-5.1)
[2019-06-08 12:41] LABS: CKMB 1.1 U/L (0.0-3.6); CREATINE KINASE 168 UL (21-215); TROPONIN-I < 0.017 ng/mL (0.000-0.060)
--- NOTE | 2019-06-08 12:46 | NUR ---
22GA INITIATED TO THE LEFT FOREARM. X1 ATTEMPT. PT TOLERATED WELL. ABX INFUSION BEGAN. WILL CTM.
[2019-06-08 14:17] VITALS: BP 148/75
[2019-06-08 15:23] VITALS: BP 148/75
[2019-06-08 16:00] VITALS: BP 105/54
[2019-06-08 17:49] LABS: CKMB 1.1 U/L (0.0-3.6); CREATINE KINASE 158 UL (21-215); TROPONIN-I < 0.017 ng/mL (0.000-0.060)
--- NOTE | 2019-06-08 19:15 | NUR ---
REPORT RECEIVED, WILL CONTINUE POC. PATIENT IS AAOX4, UP AD HARRIET. LYING IN SEMI-FOWLERS POSITION, TALKING ON PHONE. NO S/S OF DISTRESS OBSERVED, RR EVEN AND UNLABORED ON ROOM AIR. PATIENT DENIES FURTHER NEEDS AT THIS TIME. CL IN REACH, BED LOCKED AND LOWERED. WILL CTM.
[2019-06-08 20:00] VITALS: BP 113/58
[2019-06-08 23:00] VITALS: BP 108/57
[2019-06-08 23:28] LABS: CKMB 0.9 U/L (0.0-3.6); CREATINE KINASE 148 UL (21-215); TROPONIN-I < 0.017 ng/mL (0.000-0.060)
[2019-06-09 04:00] VITALS: BP 114/56
--- NOTE | 2019-06-09 04:47 | NUR ---
PT C/O SHORTNESS OF BREATH. O2 SAT 97% ON 2L VIA NC. HR 101. RESPIRATORY CALLED TO ADMINISTERED TX. ASSISTED PATIENT TO BATHROOM AND BACK TO BED. XRAY HERE TO TAKE XRAYS. RESPIRATORY ARRIVED PROMPTLY TO ADMINISTER TX. PATIENT C/O PRESSURE IN HER CHEST. EKG PERFORMED, COPIES PLACED IN CHART. PATIENT STATES SHE'S FEELING BETTER. PATIENT DENIES FURTHER NEEDS AT THIS TIME. CL IN REACH, BED LOCKED AND LOWERED. WILL CTM.
[2019-06-09 05:24] LABS: BASOPHILS 0.8 % (0-2); EOSINOPHILS 11.5 % (0-7); HEMATOCRIT 35.6 % (36.0-48.0); HEMOGLOBIN 11.2 g/dL (12-16); IMMATURE GRANULOCYTES 0.3 % (0-5); LYMPHOCYTES 26.3 % (15-50); MCH 28.3 pg (26.0-34.0); MCHC 31.5 g/dL (31.0-37.0); MCV 89.9 fL (80.0-100.0); MEAN PLATELET VOLUME 9.4 fL (7.4-10.4); MONOCYTES 7.8 % (2-11); NEUTROPHILS 53.3 % (40-80); PLATELET COUNT 271 10x3/uL (130-400); RBC 3.96 10x6/uL (4.00-5.40); RDW 12.4 % (11.5-14.5); WBC 6.5 10x3/uL (4.8-10.8)
[2019-06-09 05:57] LABS: ANION GAP 10.7 mmol/L (8-16); BILIRUBIN - TOTAL 0.33 mg/dL (0.2-1.3); CALCIUM 8.6 mg/dL (8.5-10.1); CREATININE - SERUM 0.9 mg/dL (0.6-1.3); PROTEIN - SERUM 6.2 g/dL (6.4-8.2)
[2019-06-09 05:58] LABS: POTASSIUM - SERUM 3.7 mmol/L (3.5-5.1)
[2019-06-09 09:48] VITALS: BP 112/52
[2019-06-09 12:40] LABS: APPEARANCE CLEAR (CLEAR); COLOR YELLOW (YELLOW); NITRITE NEGATIVE (NEGATIVE); PROTEIN NEGATIVE (NEGATIVE)
[2019-06-09 12:41] LABS: BACTERIA FEW /hpf (NEGATIVE); BILIRUBIN NEGATIVE (NEGATIVE); EPITHELIAL CELLS RARE /hpf (0-5); GLUCOSE NEGATIVE (NEGATIVE); KETONE NEGATIVE (NEGATIVE); RED CELLS - URINE OCC /hpf (0-5); UROBILINOGEN NORMAL (NORMAL); WHITE CELLS - URINE RARE /hpf (NEGATIVE)
[2019-06-09 14:22] VITALS: Ht 165.1 cm; Wt 90.9 kg
[2019-06-09 17:16] VITALS: BP 138/55
[2019-06-09 17:27] VITALS: BP 120/49
--- NOTE | 2019-06-09 18:33 | NUR ---
DC/D LEFT FA SL DUE TO PT C/O PAIN AT SITE.
--- NOTE | 2019-06-09 19:45 | NUR ---
REPORT RECEIVED. PT UP IN BED RECEIVING UPDRAFT. NO VOICED C/O OR CONCERNS NOTED AT THIS TIME. NO S/SX OF DISTRESS. CALL LIGHT IN REACH. WILL CTM.
[2019-06-09 20:00] VITALS: BP 132/55
[2019-06-10] VITALS: BP 145/56
[2019-06-10 04:00] VITALS: BP 123/77
[2019-06-10 06:59] LABS: ANION GAP 10.6 mmol/L (8-16); CALCIUM 8.9 mg/dL (8.5-10.1); CARBON DIOXIDE 30.1 mmol/L (21.0-32.0); CREATININE - SERUM 0.9 mg/dL (0.6-1.3)
[2019-06-10 07:00] LABS: POTASSIUM - SERUM 4.7 mmol/L (3.5-5.1)
[2019-06-10 07:01] LABS: BASOPHILS 0 % (0-2); EOSINOPHILS 0 % (0-7); HEMATOCRIT 34.2 % (36.0-48.0); IMMATURE GRANULOCYTES 0.2 % (0-5); LYMPHOCYTES 11.2 % (15-50); MCH 28.6 pg (26.0-34.0); MCHC 32.2 g/dL (31.0-37.0); MCV 89.1 fL (80.0-100.0); MEAN PLATELET VOLUME 10.3 fL (7.4-10.4); MONOCYTES 5.2 % (2-11); NEUTROPHILS 83.4 % (40-80); PLATELET COUNT 297 10x3/uL (130-400); RBC 3.84 10x6/uL (4.00-5.40); RDW 12.3 % (11.5-14.5)
--- NOTE | 2019-06-10 07:37 | NUR ---
PT RESTING PEACEFULLY, RESPIRATIONS EVEN/REGULAR AND UNLABORED. NO SIGNS OR SYMTPOMS OF ACUTE DISTRESS NOTED AT THIS TIME. NO FAMILY PRESENT ATBEDISDE. CL IN REACH, SRX2.
[2019-06-10 08:50] VITALS: BP 151/63
--- NOTE | 2019-06-10 09:58 | NUR ---
PT AWAKE AND ORIENTED, C/O NOT SLEEPING WELL LAST NIGHT. STATES SHE HATES HOW THE LASIX MAKES HER PEE TOO OFTEN. CL IN REACH, SRX2. NO OTHER COMPLAINTS/CONCERNS AT THIS TIME, ALL QUESTIONS ANSWERED.
--- NOTE | 2019-06-10 11:04 | NUR ---
I have reviewed this patient and I concur with the Shift Assessment completed by the Licensed Practical Nurse today this shift.
[2019-06-10 11:59] VITALS: BP 136/59
--- NOTE | 2019-06-10 12:33 | NUR ---
PT RESTING PEACEUFLLY. WOKE EASILY TO SOUND, WENT BACK TO SLEEP. NO COMPLAINTS/CONCERNS AT THIS TIME CL IN REACH, SRX2.
[2019-06-10 16:41] VITALS: BP 137/65
--- NOTE | 2019-06-10 18:32 | NUR ---
PT AWAKE AND ORIENTED, STATES SHE HOPES TO SLEEP BETTER TONIGHT THAT PREVIOUS NIGHTS. NO OTHER COMPLAINTS OR CONCERNS, ALL QUESTIONS ANSWERED TO THE BEST OF MY ABILITY. CL IN REACH, SRX2.
--- NOTE | 2019-06-10 19:30 | NUR ---
REPORT RECEIVED. PT RESTING IN BED RR EVEN AND UNLABORED ON 2L NC. NO S/SX OF DISTRESS NOTED AT THIS TIME. NO NEEDS EXPRESSED. CALL LIGHT IN REACH. WILL CTM.
[2019-06-10 20:00] VITALS: BP 125/52
[2019-06-11] VITALS: BP 108/52
[2019-06-11 04:00] VITALS: BP 121/67
[2019-06-11 06:02] LABS: BASOPHILS 0.1 % (0-2); EOSINOPHILS 0.3 % (0-7); HEMOGLOBIN 10.3 g/dL (12-16); IMMATURE GRANULOCYTES 0.1 % (0-5); LYMPHOCYTES 21.1 % (15-50); MCH 28.2 pg (26.0-34.0); MCHC 31.2 g/dL (31.0-37.0); MCV 90.4 fL (80.0-100.0); MONOCYTES 9.5 % (2-11); NEUTROPHILS 68.9 % (40-80); PLATELET COUNT 289 10x3/uL (130-400); RBC 3.65 10x6/uL (4.00-5.40); RDW 12.6 % (11.5-14.5); WBC 7.1 10x3/uL (4.8-10.8)
[2019-06-11 06:21] LABS: ANION GAP 8.1 mmol/L (8-16); CALCIUM 8.5 mg/dL (8.5-10.1); CARBON DIOXIDE 30.7 mmol/L (21.0-32.0); CREATININE - SERUM 0.9 mg/dL (0.6-1.3)
[2019-06-11 06:25] LABS: POTASSIUM - SERUM 3.8 mmol/L (3.5-5.1)
--- NOTE | 2019-06-11 07:23 | NUR ---
PT RESTING PEACEFULLY, BREATHS EVEN/REGULAR AND UNLABORED. NO SIGNS OR SYMTPOS OF ACUTE DISTRESS NOTED. DID NOT WAKE I ENTERED, DI DNOT FURTHER DISTURB AT THIST LUIS F. CL IN REACH, SRX2.
[2019-06-11 08:48] VITALS: BP 122/59
--- NOTE | 2019-06-11 12:30 | NUR ---
rehab prescreen: thank you for this eval. this pt has [facility] insurance and will require a prior authorzation before a decision can be obtained. she ambulated 50 ft with physical therapy and no assistance so she may be to high function, will monitor her progress while waiting to hear from insurance company. once again thank you for this eval. domingo paige lpn clinical liasion
[2019-06-11 13:08] VITALS: BP 119/51
--- NOTE | 2019-06-11 14:31 | NUR ---
I have reviewed this patient and I concur with the Shift Assessment completed by the Licensed Practical Nurse today this shift.
--- NOTE | 2019-06-11 15:12 | NUR ---
PT AWAKE AND ORIENTED, DAUGHTER AT BEDSIDE. PT STATES SHE WILL REFUSE REHAB AND WANTS TO GO HOME TOMORROW. INFORMED TRAFFIC OPERATIONS ENGINEERTimi NOGUEIRA. PT DENIES NEED FOR TESSALON PERLE, STATING SHE HASN'T COUGHED MUCH TODAY. CL IN REACH, SRX2.
[2019-06-11 17:00] VITALS: BP 123/58
[2019-06-11 20:40] VITALS: BP 117/64
[2019-06-12 00:30] VITALS: BP 121/59
[2019-06-12 04:36] VITALS: BP 120/81
[2019-06-12 06:26] LABS: BASOPHILS 0.9 % (0-2); EOSINOPHILS 1.7 % (0-7); HEMATOCRIT 34.8 % (36.0-48.0); HEMOGLOBIN 10.9 g/dL (12-16); IMMATURE GRANULOCYTES 0.3 % (0-5); LYMPHOCYTES 32.6 % (15-50); MCH 28.2 pg (26.0-34.0); MCHC 31.3 g/dL (31.0-37.0); MCV 89.9 fL (80.0-100.0); MEAN PLATELET VOLUME 10.1 fL (7.4-10.4); MONOCYTES 10.8 % (2-11); NEUTROPHILS 53.7 % (40-80); PLATELET COUNT 289 10x3/uL (130-400); RBC 3.87 10x6/uL (4.00-5.40); RDW 12.6 % (11.5-14.5); WBC 5.7 10x3/uL (4.8-10.8)
[2019-06-12 06:52] LABS: ANION GAP 9.9 mmol/L (8-16); CALCIUM 8.6 mg/dL (8.5-10.1); CARBON DIOXIDE 31.1 mmol/L (21.0-32.0); CREATININE - SERUM 0.9 mg/dL (0.6-1.3)
--- NOTE | 2019-06-12 07:17 | NUR ---
PT AWAKE AND ORIENTED, LYING IN BED. STATES SHE'S HAPPY TO BE GETTING HOME BEFORE THE HOLIDAYS START. STATES HER DAUGHTER WILL BE PICKING HER UP WHENEVER WE GET THE D/C ORDER, I EXPLAINED I DID NOT YET HAVE ONE. CL IN REACH, SRX2, NO FAMILY PRESENT AT THIS TIME.
--- NOTE | 2019-06-12 09:11 | NUR ---
PT ALERT AND ORIENTED, REPORTS HAVING A BIT OF NAUSEA THIS MORNING BUT THAT IT WASN'T BAD AND SHE DOES NOT WANT THAT ADMISSION TO HINDER HER PENDING D/C IN ANY WAY. CL IN REACH, SRX2. NO FAMILY PRESENTA T BEDSIDE.
--- NOTE | 2019-06-12 09:45 | NUR ---
Rehab Note- Acute Inpatient Rehab prescreen order received. The patient has [facility] insurance and will require a PreAuth prior to an acute inpatient rehab stay. She needs an OT Eval ordered, the PT Eval states that the patient has no skilled need for physical therapy. She will require the need for 2 therapy services for a possible acute inpatient rehab stay. Will follow at this time. Thank you for this referral! Vivian Velasquez RN Clinical Liaison, [facility] Rehab
[2019-06-12 09:59] VITALS: BP 123/54
[2019-06-12] MEDS ORDERED: STERAPRED DS 1010 MG PO (10:23)
[2019-06-12] MEDS ORDERED: FLUTICASONE PRO16 GM NASAL (10:24)
[2019-06-12] MEDS ORDERED: PROTONIX40 MG PO (10:24)
[2019-06-12] MEDS ORDERED: VIBRAMYCIN 100100 MG PO (10:26)
--- NOTE | 2019-06-12 10:38 | NUR ---
I CONCUR WITH THE CLAIMS DIRECTOR ASSESSMENT OF THIS PATIENT.
--- NOTE | 2019-06-12 10:56 | NUR ---
PT D/C ORDER IN AND PAPERWORK DONE, BUT STATES HER RIDE WON;T BE ABLE TO BE HERE UNTIL 1300. WILL CONT. TO MONITOR.
--- NOTE | 2019-06-12 12:38 | NUR ---
PT ESCORTED OUT VIA WHEELCHIAR TO DAUGHTERS POV.
--- NOTE | 2019-06-12 12:50 | NUR ---
PT REQUESTED RX'S BE CALLED TO [facility] IN [place], SHE WAS GOING HOME WITH HER DAUGHTER TO [place]. RX'S ISSUED.
--- NOTE | 2019-06-12 14:13 | MORECARE ---
CASE MANAGEMENT DISCHARGE SUMMARY PATIENT: MARYBETH GEE WINTER UNIT: [id number] ADM DATE: 06/08/19 AGE: 79 : 42 SEX: F ROOM/BED: D.0952 AUTHOR: CHRISTINADOC PHYSICIAN: REFERRING PHYSICIAN: YURY LARSON DO DATE OF SERVICE: 06/12/19 Discharge Plan Patient Name: MARYBETH GEE Facility: [facility]:[place] : 1940 Planned Disposition: Home Anticipated Discharge Date: 06/12/19 Discharge Date: 06/12/2019 Expected LOS: 4 Initial Reviewer: [email or web address] Initial Review Date: 06/12/2019 Generated: 06/12/19 3:12 pm Comments DCP- Discharge Planning Updated by LISA: Yakov Peña on 06/12/19 1:[address] Patient Name: MARYBETH GEE Admission Status: Elective Accout number: [id number] Admission Date: 06-08-2019 : 1940 Admission Diagnosis: Attending: YURY LARSON Current LOS: 4 Anticipated DC Date: 06-12-2019 Planned Disposition: Home Primary Insurance: [facility] [employer] Discharge Planning Comments: CM RECEIVED ORDER FOR INPATIENT REHAB PRESCREENING, CHART REVIEWED, PT TOO HIGH FUNCTIONING FOR REHAB SERVICES. CM MET WITH PT IN ROOM TO DISCUSS DISCHARGE PLANNING AND NEEDS. PT REPORTS LIVING AT HOME INDEPENDENTLY WITH HER ADULT DAUGHTER. PT HASCANE, GLUCOMETER, NEBLUIZER AND ROLLING WALKER WITH NO MEDICAL EQUIPMENT PROVIDER PREFERENCE. PT HAS NO OUTSIDE SERVICES ASSISTING IN THE HOME. CM DISCUSSED AVAILABILITY OF HOME HEALTH, REHAB SERVICES AND MEDICAL EQUIPMENT. PT DENIES DISCHARGE NEEDS, REPORTS HER DAUGHTER WILL PICK HER UP FOR DISCHARGE HOME TODAY. IMPORTANT MESSAGE FROM MEDICARE PROVIDED AND EXPLAINED. RATING SPECIALIST NURSE NOTIFIED. Armor Senior Sergeant: Yakov Peña DCPIA - Discharge Planning Initial Assessment Updated by [id number]: Yakov Peña on 06/12/19 2:09 pm * Is the patient Alert and Oriented? Yes * How many steps to enter\exit or inside your home? NONE * PCP DR. LARSON * Pharmacy [facility] IN [place] * Preadmission Environment Home with Family * ADLs Independent * Equipment Cane Glucometer Nebulizer Rolling Walker * Other Equipment NO MEDICAL EQUIPMENT PROVIDER PREFERENCE * List name and contact numbers for known caregivers / representatives who currently or will assist patient after discharge: MARYBETH ALEXANDRA, DTR, * Verbal permission to speak to the caregivers and representatives has been obtained from the patient. N/A * Community resources currently utilized None * Please name any agencies selected above. NONE * Additional services required to return to the preadmission environment? No * Can the patient safely return to the preadmission environment? Yes * Has this patient been hospitalized within the prior 30 days at any hospital? No Coverage Notice Reviewer: [email or web address] Casa Peña Notice Issued Date-Time: 06/12/2019 12:05 Notice Type: IM Discharge Notice Notice Delivered To: Patient Relationship to Patient: Pyroglazer Name: Delivery Method: HAND - Hand Delivered Kiya Days: Prior Verbal Notification: Recipient Understood Notice: Yes Recipient Signature: Yes Med Rec Note Co-signed by Attending: Coverage Notice Comment: Patient Name: MARYBETH GEE Page [phone] at 1413 All edits/amendments must be made on the electronic document DICTATION DATE: 06/12/19 1412 AIR BRAKE TESTER: ERIKA 06/12/19 1412 RPT#: [id number] DC DATE:06/12/19 STATUS: DIS IN [facility] [address] [place] [address] END OF REPORT
== END 2019-06-12 12:39 | disposition home or self-care (01) | DRG 291 ==
LOC: D.M2 10:32
PROVIDERS: Internal Medicine Nephrology; ADMIT Family Medicine; ATTEND Family Medicine
DX: I11.0 Hypertensive heart disease with heart failure (principal); J18.9 Pneumonia, unspecified organism; J96.01 Acute respiratory failure with hypoxia; J44.1 Chronic obstructive pulmonary disease with (acute) exacerbation; J98.11 Atelectasis; I50.32 Chronic diastolic (congestive) heart failure; E78.5 Hyperlipidemia, unspecified; E11.9 Type 2 diabetes mellitus without complications; K21.9 Gastro-esophageal reflux disease without esophagitis; E03.9 Hypothyroidism, unspecified; K58.1 Irritable bowel syndrome with constipation; D64.9 Anemia, unspecified

== ENCOUNTER 2019-06-27 15:27 | Inpatient (IN) | payer MEDICARE ==
[~2019-06-27] VITALS: Ht 165.1 cm; Wt 89.8 kg
[~2019-06-27 15:27] MED LIST changes: +ISOSORBIDE DINI30 MG PO; +LINZESS72 MCG PO; +OMEGA-3100 MG PO; +STERAPRED DS 1010 MG PO; +VIBRAMYCIN 100100 MG PO; +VITAMIN D31000 UNIT PO; +XALATAN 0.0052.5 ML EACH EYE
--- NOTE | 2019-06-27 15:54 | NUR ---
RECEIVED PT TO ROOM 1207 VIA WHEELCHAIR, PT WAS ABLE TO TRANSFER FROM WHEELCHAIR TO BED WITH STEADY GATE. PT A/O X4. WILL ASSESS PT AND START PLAN OF CARE.
[2019-06-27] MEDS ORDERED: OMEPRAZOLE20 M1 PO (15:57)
[2019-06-27] MEDS ORDERED: TORSEMIDE20 MG PO (15:59)
[2019-06-27] MEDS ORDERED: ALBUTEROL SULF8.5 GM INH (16:01)
[2019-06-27 16:41] VITALS: BP 151/54
[2019-06-27 16:47] VITALS: BP 151/54; BMI 33.0
[2019-06-27 17:05] LABS: BASOPHILS 0.7 % (0-2); EOSINOPHILS 9.1 % (0-7); HEMATOCRIT 38.8 % (36.0-48.0); HEMOGLOBIN 12.5 g/dL (12-16); LYMPHOCYTES 22.6 % (15-50); MCH 28.8 pg (26.0-34.0); MCHC 32.2 g/dL (31.0-37.0); MCV 89.4 fL (80.0-100.0); MEAN PLATELET VOLUME 9.5 fL (7.4-10.4); MONOCYTES 8.5 % (2-11); NEUTROPHILS 59.1 % (40-80); PLATELET COUNT 306 10x3/uL (130-400); RBC 4.34 10x6/uL (4.00-5.40); RDW 12.6 % (11.5-14.5)
[2019-06-27 17:36] LABS: ALBUMIN 3.4 g/dL (3.4-5.0); ANION GAP 9.7 mmol/L (8-16); BILIRUBIN - TOTAL 0.3 mg/dL (0.2-1.3); CALCIUM 9.1 mg/dL (8.5-10.1); CARBON DIOXIDE 29.6 mmol/L (21.0-32.0); CREATININE - SERUM 0.8 mg/dL (0.6-1.3); POTASSIUM - SERUM 4.3 mmol/L (3.5-5.1); PROTEIN - SERUM 6.7 g/dL (6.4-8.2)
--- NOTE | 2019-06-27 18:32 | NUR ---
PT RESTING COMFORTABLY IN BED, DENIES ANY NEEDS AT THIS TIME. CALL LIGHT IN REACH, NAD NOTED.
[2019-06-27 19:07] LABS: APPEARANCE CLEAR (CLEAR); BILIRUBIN NEGATIVE (NEGATIVE); COLOR YELLOW (YELLOW); GLUCOSE NEGATIVE (NEGATIVE); KETONE NEGATIVE (NEGATIVE); NITRITE NEGATIVE (NEGATIVE); PROTEIN NEGATIVE (NEGATIVE); UROBILINOGEN NORMAL (NORMAL)
[2019-06-27 19:08] LABS: RED CELLS - URINE OCC /hpf (0-5); WHITE CELLS - URINE OCC /hpf (NEGATIVE)
[2019-06-27 20:33] VITALS: BP 144/63
--- NOTE | 2019-06-27 21:47 | NUR ---
EVENING ROUNDS COMPLETED. VSS, AAOX3, NO S/S OF DISTRESS. SCD PLACED ON PT. PT DENIES ANY FURTHER NEED FOR COMFORT CARE. WILL CPOC.
--- NOTE | 2019-06-27 22:00 | NUR ---
Pt is resting quietly in her room. no c/o or needs at this time.
--- NOTE | 2019-06-28 00:02 | NUR ---
pt waked up for vs. she has no c/o at this time. she states she is going back to sleep.
[2019-06-28 00:03] VITALS: BP 151/65
[2019-06-28 04:00] VITALS: BP 144/72
[2019-06-28 07:58] LABS: BASOPHILS 0 % (0-2); EOSINOPHILS 0 % (0-7); HEMATOCRIT 34.9 % (36.0-48.0); HEMOGLOBIN 11.2 g/dL (12-16); IMMATURE GRANULOCYTES 0.2 % (0-5); LYMPHOCYTES 8.5 % (15-50); MCH 28.4 pg (26.0-34.0); MCHC 32.1 g/dL (31.0-37.0); MCV 88.4 fL (80.0-100.0); MEAN PLATELET VOLUME 10.5 fL (7.4-10.4); MONOCYTES 1.6 % (2-11); NEUTROPHILS 89.7 % (40-80); PLATELET COUNT 279 10x3/uL (130-400); RBC 3.95 10x6/uL (4.00-5.40); RDW 12.4 % (11.5-14.5)
[2019-06-28 08:19] LABS: ALBUMIN 2.9 g/dL (3.4-5.0); ANION GAP 12.1 mmol/L (8-16); BILIRUBIN - TOTAL 0.25 mg/dL (0.2-1.3); CALCIUM 8.7 mg/dL (8.5-10.1); CARBON DIOXIDE 26.7 mmol/L (21.0-32.0); CREATININE - SERUM 0.9 mg/dL (0.6-1.3); POTASSIUM - SERUM 4.8 mmol/L (3.5-5.1); PROTEIN - SERUM 6.2 g/dL (6.4-8.2)
[2019-06-28 08:30] VITALS: BP 144/55
--- NOTE | 2019-06-28 09:20 | NUR ---
PT RESTING IN BED, DENIES NEEDS. WCTM.
[2019-06-28 10:25] VITALS: Ht 165.1 cm; Wt 89.8 kg
[2019-06-28 19:51] VITALS: BP 138/65
--- NOTE | 2019-06-28 19:51 | NUR ---
PATIENT RESTING IN BED WITH NO S/S OF DISTRESS AND DENIES NEEDS AT THIS TIME. BED IN LOWEST POSITION AND CALL LIGHT WITHIN REACH. ENCOURAGED THE PATIENT TO CALL IF SHE HAS NEEDS. WILL CONTINUE TO MONITOR.
--- NOTE | 2019-06-28 21:33 | NUR ---
PATIENT RESTING IN BED AND DENIES NEEDS AT THIS TIME. ADMINISTERED MEDS PER ORDERS. WILL CONTINUE TO MONITOR.
[2019-06-29 01:39] VITALS: BP 147/60
[2019-06-29 05:30] VITALS: BP 156/52
--- NOTE | 2019-06-29 06:20 | NUR ---
DISCONNECTED PATIENT FROM IV AND RETAIL CLIENT SOLUTIONS CONSULTANT ASSISTED PATIENT GETTING SET UP TO WASH UP PER HER REQUEST. ENCOURAGED THE PATIENT TO CALL IF SHE HAS NEEDS.
[2019-06-29 06:55] LABS: BASOPHILS 0 % (0-2); EOSINOPHILS 0 % (0-7); HEMATOCRIT 32.7 % (36.0-48.0); HEMOGLOBIN 10.4 g/dL (12-16); IMMATURE GRANULOCYTES 0.2 % (0-5); LYMPHOCYTES 11.5 % (15-50); MCHC 31.8 g/dL (31.0-37.0); MCV 87.9 fL (80.0-100.0); MEAN PLATELET VOLUME 10.2 fL (7.4-10.4); MONOCYTES 6.6 % (2-11); NEUTROPHILS 81.7 % (40-80); PLATELET COUNT 280 10x3/uL (130-400); RBC 3.72 10x6/uL (4.00-5.40); RDW 12.5 % (11.5-14.5); WBC 5.6 10x3/uL (4.8-10.8)
[2019-06-29 07:02] LABS: ALBUMIN 2.9 g/dL (3.4-5.0); ANION GAP 11.6 mmol/L (8-16); BILIRUBIN - TOTAL 0.25 mg/dL (0.2-1.3); CALCIUM 8.5 mg/dL (8.5-10.1); CARBON DIOXIDE 26.1 mmol/L (21.0-32.0); CREATININE - SERUM 0.8 mg/dL (0.6-1.3); POTASSIUM - SERUM 4.7 mmol/L (3.5-5.1); PROTEIN - SERUM 5.8 g/dL (6.4-8.2)
[2019-06-29 08:00] VITALS: BP 153/102
--- NOTE | 2019-06-29 08:00 | NUR ---
ASSESSMENT COMPLETE, PT AWAKE COMPLETING LUNCH MENU. DENIES ANY NEEDS AT THIS TIME.
--- NOTE | 2019-06-29 08:16 | NUR ---
EKG ORDERED BY STONEWORK SUPERVISOR, SPOKE WITH YELENA TOLEDO IN RESP.
--- NOTE | 2019-06-29 12:30 | NUR ---
RESP STARTED BREATHING TREATMENT PT STARTED GASPING. 02 STARTED @ 7L/NC ENCOURAGED TO BREATH THROUGH NOSE AND OUT THROUGH MOUTH. MATTER CORRECTED, RESP INFORMED.
--- NOTE | 2019-06-29 13:39 | MORECARE ---
CASE MANAGEMENT DISCHARGE SUMMARY PATIENT: IGLA GEE WINTER UNIT: [id number] ADM DATE: 06/27/19 AGE: 79 : 42 SEX: F ROOM/BED: D.1207 AUTHOR: DREW VASQUEZ PHYSICIAN: REFERRING PHYSICIAN: YURY LARSON DO DATE OF SERVICE: 06/29/19 Discharge Plan Patient Name: GILA GEE [facility] [facility] 1940 Planned Disposition: Home Anticipated Discharge Date: 07/01/19 Discharge Date: Expected LOS: 4 Initial Reviewer: [email or web address] Initial Review Date: 06/27/2019 Generated: 06/29/19 2:38 pm DCPIA - Discharge Planning Initial Assessment Updated by [id number]: Danita Lucas on 06/29/19 1:34 pm * Is the patient Alert and Oriented? Yes * PCP Dr. Larson * Pharmacy [facility] pharmacy in [place] * Preadmission Environment Home with Family * ADLs Independent * Equipment Cane Glucometer Nebulizer * Other Equipment blood pressure machine * List name and contact numbers for known caregivers / representatives who currently or will assist patient after discharge: Nadja Kirkland - grand dtr - [phone] Gila Nguyen - daughter - [phone] * Verbal permission to speak to the caregivers and representatives has been obtained from the patient. Yes * Community resources currently utilized None * Additional services required to return to the preadmission environment? No * Can the patient safely return to the preadmission environment? Yes * Has this patient been hospitalized within the prior 30 days at any hospital? Yes Patient Name: GILA GEE Page [phone] at 1339 All edits/amendments must be made on the electronic document DICTATION DATE: 06/29/198 SPECIAL DELIVERY MESSENGER: ERIKA 06/29/19 1338 RPT#: [id number] DC DATE: STATUS: ADM IN [facility] [address] [place] [address] END OF REPORT
--- NOTE | 2019-06-29 13:49 | MORECARE ---
CASE MANAGEMENT DISCHARGE SUMMARY PATIENT: GILA GEE UNIT: [id number] ADM DATE: 06/27/19 AGE: 79 : 42 SEX: F ROOM/BED: D.1207 AUTHOR: CHRISTINA,DOC PHYSICIAN: REFERRING PHYSICIAN: YURY LARSON DO DATE OF SERVICE: 06/29/19 Discharge Plan Patient Name: GILA GEE Facility: [facility]:[place] : 1940 Planned Disposition: Home Anticipated Discharge Date: 07/01/19 Discharge Date: Expected LOS: 4 Initial Reviewer: [email or web address] Initial Review Date: 06/27/2019 Generated: 06/29/19 2:49 pm Comments DCP- Discharge Planning Updated by [email or web address]: Danita Lucas on 06/29/19 12:[address] DC PLAN: Return home with her daughter independently. ANTICIPATED DC NEEDS: denied known dc needs at time of assessment. CM met with patient and multiple family members to complete initial dc planning assessment. CM educated patient on the CM role and verbal consent given by patient to complete assessment. CM verified patient's address, phone number, and emergency contact phone numbers. Patient lives at home with her daughter and reports she is independent in her care. At discharge patient plans to return home and feels this is a safe discharge. CM discussed availability of home health, rehab services, and medical equipment. Patient denied known discharge needs at this time. Transportation provider at discharge will be her daughter. CM will continue to follow and will assist as needed with dc plans/needs. Danita Lucas RN, [facility] DCPIA - Discharge Planning Initial Assessment Updated by [email or web address]: Danita Lucas on 06/29/19 1:34 pm * Is the patient Alert and Oriented? Yes * PCP Dr. Larson * Pharmacy [facility] pharmacy in [place] * Preadmission Environment Home with Family * ADLs Independent * Equipment Cane Glucometer Nebulizer * Other Equipment blood pressure machine * List name and contact numbers for known caregivers / representatives who currently or will assist patient after discharge: Nadja Kirkland - grand dtr - [phone] Gila Nguyen - daughter - [phone] * Verbal permission to speak to the caregivers and representatives has been obtained from the patient. Yes * Community resources currently utilized None * Additional services required to return to the preadmission environment? No * Can the patient safely return to the preadmission environment? Yes * Has this patient been hospitalized within the prior 30 days at any hospital? Yes Coverage Notice Reviewer: [email or web address] Casa Lucas Notice Issued Date-Time: 06/29/2019 10:40 Notice Type: IM Discharge Notice Notice Delivered To: Patient Relationship to Patient: Hand Straightener Name: Delivery Method: HAND - Hand Delivered Kiya Days: Prior Verbal Notification: Recipient Understood Notice: Yes Recipient Signature: Yes Med Rec Note Co-signed by Attending: Coverage Notice Comment: DC IMM delivered, explained, signed by the patient, and placed in his chart. Signed form also left with patient. Danita Lucas RN , [facility] Last DP export: 06/29/19 12:39 pm Patient Name: GILA GEE Page [phone] at 1349 All edits/amendments must be made on the electronic document DICTATION DATE: 06/29/19 1348 HELICOPTER DISPATCHER: ERIKA 06/29/19 1348 RPT#: [id number] DC DATE: STATUS: ADM IN [facility] [address] [place] [address] END OF REPORT
[2019-06-29 16:17] VITALS: BP 191/88
--- NOTE | 2019-06-29 16:30 | NUR ---
FAMILY AT BEDSIDE DENIES ANY NEEDS
--- NOTE | 2019-06-29 18:34 | NUR ---
IV'S DC'D CATH INTACT. DC ORDERS SIGNED AND PT LEFT FLOOR.
[2019-06-29 20:02] VITALS: BP 159/75
--- NOTE | 2019-06-30 01:33 | NUR ---
LYING IN BED WITH EYES CLOSED. EASY AWAKEN WITH VERBAL STIMULATION. NO SIGNSOR SYMPTOMS OF DISTRESS NOTED. RESPIRATIONS EVEN AND UNLABORED. 58 SINUS BREANNA WITH PVCS ON TELEMETRY. CONTINENT OF BOWELL AND BLADDER. BOWELL SOUND ACTIVE x4. STATES LST BOWELL MOVEMENT WAS 06/29/2019. ABDOMEN IS SOFT TO PALPATION. NO COMPLAINTS OF PAIN AT THIS TIME. CALL LIGHT WITH IN REACH AND BED IN LOWEST POSITON. PT ENCOURAGED TO CALL FOR HELP. WILL CONTINE TO MONITOR.
[2019-06-30 06:05] VITALS: BP 156/74
--- NOTE | 2019-06-30 06:49 | NUR ---
I have reviewed this patient and I concur with the Shift Assessment completed by the Licensed Practical Nurse today this shift.
--- NOTE | 2019-06-30 06:58 | NUR ---
PT IV RESITED 22G TO LEFT HAND. PT IS TOLERATING WELL. RIGHT HAND IV SITE IS SWOLLEN. REMOVED RIGHT HAND IV.
[2019-06-30 07:06] LABS: BASOPHILS 0 % (0-2); EOSINOPHILS 0 % (0-7); HEMATOCRIT 35.7 % (36.0-48.0); HEMOGLOBIN 11.4 g/dL (12-16); IMMATURE GRANULOCYTES 0.1 % (0-5); LYMPHOCYTES 9.9 % (15-50); MCH 28.1 pg (26.0-34.0); MCHC 31.9 g/dL (31.0-37.0); MCV 88.1 fL (80.0-100.0); MONOCYTES 5.9 % (2-11); NEUTROPHILS 84.1 % (40-80); PLATELET COUNT 284 10x3/uL (130-400); RBC 4.05 10x6/uL (4.00-5.40); RDW 12.7 % (11.5-14.5)
[2019-06-30 07:08] LABS: WBC 7.5 10x3/uL (4.8-10.8)
[2019-06-30 07:20] LABS: ALBUMIN 3.1 g/dL (3.4-5.0); ANION GAP 10.3 mmol/L (8-16); BILIRUBIN - TOTAL 0.31 mg/dL (0.2-1.3); CALCIUM 8.6 mg/dL (8.5-10.1); CARBON DIOXIDE 30.1 mmol/L (21.0-32.0); CREATININE - SERUM 0.9 mg/dL (0.6-1.3); POTASSIUM - SERUM 4.4 mmol/L (3.5-5.1); PROTEIN - SERUM 6.5 g/dL (6.4-8.2)
[2019-06-30 09:04] VITALS: BP 150/58
[2019-06-30 09:05] VITALS: BP 150/58
[2019-06-30 12:10] LABS: FUNGUS STAIN Final report (())
[2019-06-30 12:20] VITALS: BP 154/65
[2019-06-30 16:00] VITALS: BP 102/99; BP 159/55
--- NOTE | 2019-06-30 16:06 | NUR ---
I have reviewed this patient and I concur with the Shift Assessment completed by the Licensed Practical Nurse today this shift.
[2019-06-30 16:08] LABS: ACID FAST SMEAR Negative (()); AFB SPECIMEN PROCESSING Concentration (())
--- NOTE | 2019-06-30 18:16 | NUR ---
PT RESTING IN BED WITH EYES OPEN CALL LIGHT IN REACH WILL MONITER
[2019-06-30 20:00] VITALS: BP 160/71
[2019-07-01] VITALS (7 sets, daily range): BP systolic 122–159; BP diastolic 59–77
--- NOTE | 2019-07-01 07:39 | NUR ---
ALERT AND ORIENTED X4. BREATH SOUNDS DIMINISHED X4 ANTERIOR. O2 2.5L PER N/C. TELEMETRY INTACT. IV TO LEFT HAND INFUSING AT PRESCRIBED RATE. NO PERIPHERAL EDEMA. ENCOURAGED TO USE CALL LIGHT FOR ASSIST.
[2019-07-01 07:42] LABS: BASOPHILS 0 % (0-2); EOSINOPHILS 0.1 % (0-7); HEMATOCRIT 36.4 % (36.0-48.0); HEMOGLOBIN 11.8 g/dL (12-16); IMMATURE GRANULOCYTES 0.1 % (0-5); LYMPHOCYTES 29.3 % (15-50); MCH 28.3 pg (26.0-34.0); MCHC 32.4 g/dL (31.0-37.0); MCV 87.3 fL (80.0-100.0); MEAN PLATELET VOLUME 10.4 fL (7.4-10.4); MONOCYTES 10.6 % (2-11); NEUTROPHILS 59.9 % (40-80); PLATELET COUNT 308 10x3/uL (130-400); RBC 4.17 10x6/uL (4.00-5.40); RDW 12.6 % (11.5-14.5); WBC 6.7 10x3/uL (4.8-10.8)
[2019-07-01 08:07] LABS: ALBUMIN 3.1 g/dL (3.4-5.0); ANION GAP 10.3 mmol/L (8-16); BILIRUBIN - TOTAL 0.4 mg/dL (0.2-1.3); CALCIUM 8.7 mg/dL (8.5-10.1); CREATININE - SERUM 1.1 mg/dL (0.6-1.3); POTASSIUM - SERUM 3.3 mmol/L (3.5-5.1); PROTEIN - SERUM 6.5 g/dL (6.4-8.2)
--- NOTE | 2019-07-01 19:07 | NUR ---
PATIENT RESTING IN BED TALING ON PHONE. NO S/S OF DISTRESS. VSS. BROUGHT PATIENT WATER PER HER REQUEST. PATIENT DENIES OTHER NEEDS AT THIS TIME. BED IN LOWEST POSITION AND CALL LIGHT WITHIN REACH. ENCOURAGED THE PATIENT TO CALL IF SHE HAS NEEDS. WILL CONTINUE TO MONITOR.
[2019-07-02 05:37] VITALS: BP 126/57
[2019-07-02 07:14] LABS: BASOPHILS 0 % (0-2); EOSINOPHILS 0 % (0-7); HEMATOCRIT 36.7 % (36.0-48.0); IMMATURE GRANULOCYTES 0.2 % (0-5); LYMPHOCYTES 11.4 % (15-50); MCH 28.5 pg (26.0-34.0); MCHC 32.7 g/dL (31.0-37.0); MCV 87.2 fL (80.0-100.0); MONOCYTES 6.9 % (2-11); NEUTROPHILS 81.5 % (40-80); PLATELET COUNT 334 10x3/uL (130-400); RBC 4.21 10x6/uL (4.00-5.40); RDW 12.4 % (11.5-14.5)
[2019-07-02 07:20] LABS: WBC 8.4 10x3/uL (4.8-10.8)
--- NOTE | 2019-07-02 07:20 | NUR ---
RECIEVE REPORT. ALERT AND ORIENTED X4. SITTING UP IN BED. DENIES ANY NEEDS AT THIS TIME. CONTINUE PLAN OF CARE AND SAFETY PRECAUTIONS.
[2019-07-02 07:47] VITALS: BP 142/63
[2019-07-02 07:53] LABS: ANION GAP 8.5 mmol/L (8-16); BILIRUBIN - TOTAL 0.44 mg/dL (0.2-1.3); CALCIUM 8.4 mg/dL (8.5-10.1); CARBON DIOXIDE 32.5 mmol/L (21.0-32.0); CREATININE - SERUM 1.3 mg/dL (0.6-1.3); PROTEIN - SERUM 6.5 g/dL (6.4-8.2)
[2019-07-02 15:29] VITALS: BP 144/66
--- NOTE | 2019-07-02 19:27 | NUR ---
PATIENT RESTING IN BED AND DENIES NEEDS AT THIS TIME. BED IN LOWEST POSITION AND CALL LIGHT WITHIN REACH. ENCOURAGED THE PATIENT TO CALL IF SHE HAS NEEDS. WILL CONTINUE TO MONITOR.
[2019-07-02 20:32] VITALS: BP 124/58
[2019-07-03 00:23] VITALS: BP 129/61
[2019-07-03 04:00] VITALS: BP 123/61
[2019-07-03 06:45] LABS: BASOPHILS 0 % (0-2); EOSINOPHILS 0.1 % (0-7); HEMATOCRIT 36.4 % (36.0-48.0); HEMOGLOBIN 11.7 g/dL (12-16); IMMATURE GRANULOCYTES 0.2 % (0-5); LYMPHOCYTES 18.5 % (15-50); MCH 27.9 pg (26.0-34.0); MCHC 32.1 g/dL (31.0-37.0); MCV 86.7 fL (80.0-100.0); MEAN PLATELET VOLUME 10.4 fL (7.4-10.4); MONOCYTES 9.2 % (2-11); PLATELET COUNT 309 10x3/uL (130-400); RDW 12.3 % (11.5-14.5); WBC 9.5 10x3/uL (4.8-10.8)
[2019-07-03 07:01] LABS: ALBUMIN 2.8 g/dL (3.4-5.0); ANION GAP 6.4 mmol/L (8-16); BILIRUBIN - TOTAL 0.3 mg/dL (0.2-1.3); CALCIUM 8.5 mg/dL (8.5-10.1); CARBON DIOXIDE 35.4 mmol/L (21.0-32.0); CREATININE - SERUM 1.3 mg/dL (0.6-1.3); POTASSIUM - SERUM 3.8 mmol/L (3.5-5.1); PROTEIN - SERUM 6.2 g/dL (6.4-8.2)
--- NOTE | 2019-07-03 07:39 | NUR ---
PT UP TO SIDE OF BED, EATING BREKFAST. PT A/O X4, LT HAND IV SL. PT DENIES ANY NEEDS AT THIS TIME. CALL LIGHT IN REACH, NAD NOTED, WILL CONTINUE PLAN OF CARE.
[2019-07-03 07:50] VITALS: BP 117/59
--- NOTE | 2019-07-03 08:27 | NUR ---
AM MEDS GIVEN AT THIS TIME. PT A/O X4, RESP EVEN AND NONLABORED ON RA. LT HAND IV SL. PT DENIES ANY NEEDS AT THIS TIME. CALL LIGHT IN REACH, NAD NOTED, WILL CONTINUE TO MONITOR.
[2019-07-03 11:29] VITALS: BP 136/69
--- NOTE | 2019-07-03 12:05 | NUR ---
BLOOD SUGAR OF 275, 6UNITS GIVEN PER S/S. PT UP TO SIDE OF BED, DENIES ANY NEEDS AT THIS TIME. CALL LIGHT IN REACH, NAD NOTED,W ILL CONTINUE TO MONITOR.
--- NOTE | 2019-07-03 13:52 | NUR ---
Nutrition Follow-up: Diet: Regular PO intake: ~78% average x last 6 meals; noted in chart that pt is with possible esophageal stricture and may have GI consult and [employer] SALES ENGINEER consult today. Patient request Boost on meal trays. Last BM: 07/03/19. WT: 198# (06/28/19) Meds noted: solumedrol, SSI, linzess. Labs noted: GFR 42, Alb 2.8, Glu 205, BUN 43. Will change to consistent CHO diet 2/2 elevated blood glucose and h/o diabetes dx. Will add Glucerna to meal trays per patient request for oral nutrition supplement, possible esophageal stricture, and depressed Alb. Will continue to monitor. RD following.
[2019-07-03 16:29] VITALS: BP 142/65
--- NOTE | 2019-07-03 19:19 | NUR ---
PATIENT SITTING UP ON THE SIDE OF THE BED WITH NO S/S OF DISTRESS. BROUGHT PATIENT WATER PER HER REQUEST. PATIENT DENIES OTHER NEEDS AT THIS TIME. BED IN LOWEST POSITION AND CALL LIGHT WITHIN REACH. ENCOURAGED THE PATIENT TO CALL IF SHE HAS OTHER NEEDS. WILL CONTINUE TO MONITOR.
[2019-07-03 19:36] VITALS: BP 144/69
[2019-07-04 00:43] VITALS: BP 118/63
[2019-07-04 05:45] VITALS: BP 118/65
[2019-07-04 05:50] VITALS: BP 101/59
[2019-07-04 06:12] LABS: BASOPHILS 0 % (0-2); EOSINOPHILS 0.1 % (0-7); HEMATOCRIT 35.7 % (36.0-48.0); IMMATURE GRANULOCYTES 0.2 % (0-5); LYMPHOCYTES 17.6 % (15-50); MCH 29.3 pg (26.0-34.0); MCHC 33.6 g/dL (31.0-37.0); MCV 87.3 fL (80.0-100.0); MEAN PLATELET VOLUME 10.4 fL (7.4-10.4); MONOCYTES 9.8 % (2-11); NEUTROPHILS 72.3 % (40-80); PLATELET COUNT 324 10x3/uL (130-400); RBC 4.09 10x6/uL (4.00-5.40); RDW 12.5 % (11.5-14.5); WBC 9.4 10x3/uL (4.8-10.8)
[2019-07-04 06:20] LABS: ALBUMIN 2.9 g/dL (3.4-5.0); ANION GAP 7.9 mmol/L (8-16); BILIRUBIN - TOTAL 0.32 mg/dL (0.2-1.3); CALCIUM 8.7 mg/dL (8.5-10.1); CARBON DIOXIDE 33.2 mmol/L (21.0-32.0); CREATININE - SERUM 1.2 mg/dL (0.6-1.3); POTASSIUM - SERUM 4.1 mmol/L (3.5-5.1); PROTEIN - SERUM 5.8 g/dL (6.4-8.2)
[2019-07-04] MEDS ORDERED: FLUTICASONE PRO16 GM NASAL (08:05)
[2019-07-04] MEDS ORDERED: STERAPRED DS 1010 MG PO (08:06)
[2019-07-04 08:23] VITALS: BP 101/68
--- NOTE | 2019-07-04 10:29 | NUR ---
PROVIDED VERBAL AND WRITTEN DISCHARGE TEACHING TO PT, WHO VERBALIZED UNDERSTANDING REGARDING TEACHING. D/C LT HAND IV WITH CATHETER TIP INTACT. PT LEFT UNIT VIA WHEELCHAIR, WITH ALL BELONGINGS. NAD NOTED.
--- NOTE | 2019-07-04 12:37 | MORECARE ---
CASE MANAGEMENT DISCHARGE SUMMARY PATIENT: GILA GEE UNIT: [id number] ADM DATE: 06/27/19 AGE: 79 : 42 SEX: F ROOM/BED: D.1207 AUTHOR: CHRISTINA,DOC PHYSICIAN: REFERRING PHYSICIAN: YURY LARSON DO DATE OF SERVICE: 07/04/19 Discharge Plan Patient Name: GILA GEE Facility: [facility]:[place] : 1940 Planned Disposition: Home Anticipated Discharge Date: 07/01/19 Discharge Date: 07/04/2019 Expected LOS: 4 Initial Reviewer: [email or web address] Initial Review Date: 06/27/2019 Generated: 07/04/19 1:37 pm DCP- Discharge Planning Updated by [email or web address]: Danita Lucas on 06/29/19 12:[address] DC PLAN: Return home with her daughter independently. ANTICIPATED DC NEEDS: denied known dc needs at time of assessment. CM met with patient and multiple family members to complete initial dc planning assessment. CM educated patient on the CM role and verbal consent given by patient to complete assessment. CM verified patient's address, phone number, and emergency contact phone numbers. Patient lives at home with her daughter and reports she is independent in her care. At discharge patient plans to return home and feels this is a safe discharge. CM discussed availability of home health, rehab services, and medical equipment. Patient denied known discharge needs at this time. Transportation provider at discharge will be her daughter. CM will continue to follow and will assist as needed with dc plans/needs. Danita Lucas RN, [facility] DCPIA - Discharge Planning Initial Assessment Updated by [email or web address]: Danita Lucas on 06/29/19 1:34 pm * Is the patient Alert and Oriented? Yes * PCP Dr. Larson * Pharmacy [facility] in [place] * Preadmission Environment Home with Family * ADLs Independent * Equipment Cane Glucometer Nebulizer * Other Equipment blood pressure machine * List name and contact numbers for known caregivers / representatives who currently or will assist patient after discharge: Nadjabrian Kirkland - grand dtr - [phone] Gila Nguyen - daughter - [phone] * Verbal permission to speak to the caregivers and representatives has been obtained from the patient. Yes * Community resources currently utilized None * Additional services required to return to the preadmission environment? No * Can the patient safely return to the preadmission environment? Yes * Has this patient been hospitalized within the prior 30 days at any hospital? Yes Coverage Notice Reviewer: [email or web address] [place] Lucas Notice Issued Date-Time: 06/29/2019 10:40 Notice Type: IM Discharge Notice Notice Delivered To: Patient Relationship to Patient: Hull Inspector Name: Delivery Method: HAND - Hand Delivered Kiya Days: Prior Verbal Notification: Recipient Understood Notice: Yes Recipient Signature: Yes Med Rec Note Co-signed by Attending: Coverage Notice Comment: DC IMM delivered, explained, signed by the patient, and placed in his chart. Signed form also left with patient. Danita Lucas RN , [facility] Reviewer: [email or web address] - Claudine Chairez Notice Issued Date-Time: 07/03/2019 11:44 Notice Type: IM Discharge Notice Notice Delivered To: Patient Relationship to Patient: Self Hull Inspector Name: Delivery Method: HAND - Hand Delivered Kiya Days: Prior Verbal Notification: Recipient Understood Notice: Yes Recipient Signature: Yes Med Rec Note Co-signed by Attending: Coverage Notice Comment: CM SPOKE W/ THE PATIENT TO EXPLAIN DISCHARGE IMM. SHE STATED SHE UNDERSTOOD. HAD NO QUESTIONS OR CONCERNS. DISCHARGE IMM SERVEC. ORIGINAL COPY TO THE PATIENT. ORIGINAL TO THE HARD COVER CHART. Last DP export: 06/29/19 12:49 pm Patient Name: GILA GEE Page 72075 at 1237 All edits/amendments must be made on the electronic document DICTATION DATE: 07/04/19 1237 CHOIR ACCOMPANIST: ERIKA 07/04/19 1237 RPT#: [id number] DC DATE:07/04/19 STATUS: DIS IN [facility] [address] [place] [address] END OF REPORT
[2019-07-04 15:10] LABS: FUNGUS MYCOLOGY CULTURE Final report (())
== END 2019-07-04 10:36 | disposition home or self-care (01) | DRG 178 ==
LOC: D.M3 15:27
PROVIDERS: Family Medicine; Internal Medicine Pulmonary Disease; ADMIT Family Medicine; ATTEND Family Medicine
PROC: 0B948ZZ Drainage of Right Upper Lobe Bronchus, Via Natural or Artificial Opening Endoscopic (ICD-10-PCS; 2019-06-29)
PROC: 0B988ZZ Drainage of Left Upper Lobe Bronchus, Via Natural or Artificial Opening Endoscopic (ICD-10-PCS; 2019-06-29)
PROC: 0B918ZZ Drainage of Trachea, Via Natural or Artificial Opening Endoscopic (ICD-10-PCS; 2019-06-29)
PROC: 0B9D8ZZ Drainage of Right Middle Lung Lobe, Via Natural or Artificial Opening Endoscopic (ICD-10-PCS; 2019-06-29)
PROC: 0B958ZZ Drainage of Right Middle Lobe Bronchus, Via Natural or Artificial Opening Endoscopic (ICD-10-PCS; 2019-06-29)
PROC: 0B938ZZ Drainage of Right Main Bronchus, Via Natural or Artificial Opening Endoscopic (ICD-10-PCS; 2019-06-29)
PROC: 0B978ZZ Drainage of Left Main Bronchus, Via Natural or Artificial Opening Endoscopic (ICD-10-PCS; 2019-06-29)
PROC: 0B968ZZ Drainage of Right Lower Lobe Bronchus, Via Natural or Artificial Opening Endoscopic (ICD-10-PCS; 2019-06-29)
PROC: 0B9B8ZZ Drainage of Left Lower Lobe Bronchus, Via Natural or Artificial Opening Endoscopic (ICD-10-PCS; 2019-06-29)
PROC: 0B998ZZ Drainage of Lingula Bronchus, Via Natural or Artificial Opening Endoscopic (ICD-10-PCS; 2019-06-29)
PROC: 0B928ZZ Drainage of Carina, Via Natural or Artificial Opening Endoscopic (ICD-10-PCS; principal; 2019-06-29 11:30)
DX: J15.6 Pneumonia due to other Gram-negative bacteria (principal); J44.0 Chronic obstructive pulmonary disease with (acute) lower respiratory infection; J98.11 Atelectasis; I50.32 Chronic diastolic (congestive) heart failure; N17.9 Acute kidney failure, unspecified; J44.1 Chronic obstructive pulmonary disease with (acute) exacerbation; J20.9 Acute bronchitis, unspecified; I11.0 Hypertensive heart disease with heart failure; K58.1 Irritable bowel syndrome with constipation; I25.10 Atherosclerotic heart disease of native coronary artery without angina pectoris; D64.9 Anemia, unspecified; E03.9 Hypothyroidism, unspecified; E11.9 Type 2 diabetes mellitus without complications

== ENCOUNTER 2019-08-05 13:09 | Inpatient (IN) | payer MEDICARE ==
[~2019-08-05] VITALS: Ht 165.1 cm; Wt 92.1 kg
--- NOTE | 2019-08-05 16:32 | NUR ---
ARRIVES TO UNIT PER STRETCHER, SL TO RIGHT HAND, O2 PER NC, SOB ON EXERTION, CONT TO MONITOR
[2019-08-05 16:40] VITALS: BP 143/58
--- NOTE | 2019-08-05 19:00 | NUR ---
BEDSIDE REPORT RECEIVED AND CARE OF PT ASSUMED. PT LYING IN SUPINE POSITION WATCHING TV. O2 IN USE VIA NC AT 2L. IV TO RIGHT HAND SALINE LOCKED. WILL MONITOR FOR NEEDS.
[2019-08-05 19:22] LABS: APTT 26.7 SECONDS (22.8-39.4); INR 1.06 (0.85-1.17); PROTIME 13.7 SECONDS (11.6-15.0)
[2019-08-05 19:23] LABS: D-DIMER-QUANTITATIVE 0.62 ug/mLFEU (0.20-0.54)
[2019-08-05 20:00] VITALS: BP 139/64
--- NOTE | 2019-08-05 21:25 | NUR ---
HS MEDICATIONS GIVEN. FSBS 265 THIS CHECK REQUIRING COVERAGE WITH HUMALOG PER SLIDING SCALE.
[2019-08-06] VITALS: BP 155/79
[2019-08-06 04:00] VITALS: BP 126/65
[2019-08-06 05:30] LABS: BASOPHILS 0 % (0-2); EOSINOPHILS 0 % (0-7); HEMATOCRIT 34.3 % (36.0-48.0); HEMOGLOBIN 10.8 g/dL (12-16); IMMATURE GRANULOCYTES 0.4 % (0-5); MCHC 31.5 g/dL (31.0-37.0); MCV 88.9 fL (80.0-100.0); MEAN PLATELET VOLUME 10.3 fL (7.4-10.4); MONOCYTES 1.9 % (2-11); NEUTROPHILS 88.7 % (40-80); PLATELET COUNT 310 10x3/uL (130-400); RBC 3.86 10x6/uL (4.00-5.40); RDW 13.7 % (11.5-14.5); WBC 5.2 10x3/uL (4.8-10.8)
[2019-08-06 05:41] LABS: ALBUMIN 2.7 g/dL (3.4-5.0); ANION GAP 11.2 mmol/L (8-16); BILIRUBIN - TOTAL 0.27 mg/dL (0.2-1.3); CALCIUM 8.4 mg/dL (8.5-10.1); CARBON DIOXIDE 27.5 mmol/L (21.0-32.0); CREATININE - SERUM 0.8 mg/dL (0.6-1.3); MAGNESIUM - SERUM 2.1 mg/dL (1.8-2.4); POTASSIUM - SERUM 4.7 mmol/L (3.5-5.1); PROTEIN - SERUM 5.9 g/dL (6.4-8.2)
--- NOTE | 2019-08-06 07:51 | NUR ---
resting in bed, no distress noted, tele in place, o2 per nc, sl in place, cont to monitor sugars
[2019-08-06 08:37] VITALS: BP 117/59
--- NOTE | 2019-08-06 11:41 | NUR ---
UP FOR SHOWER, JOCY WELL,CONT TO MONITOR
[2019-08-06 13:09] VITALS: BP 129/57
[2019-08-06 15:07] LABS: THYROID STIMULATING HORMONE 0.18 uIU/mL (0.36-3.74)
--- NOTE | 2019-08-06 15:45 | NUR ---
INFORMED PT OF NEED FOR URINE AND NASAL SWAB, MANY VISITORS IN ROOM, WILL CONT TO MONITOR
[2019-08-06 16:38] LABS: % SATURATION 27 % (15-55); IRON 70 ug/dl (35-150); TOTAL IRON BIND CAPACITY 259 ug/dl (260-445); UNSAT IRON BIND CAPACITY 189 ug/dl (150-375)
[2019-08-06 17:09] VITALS: BP 126/72
[2019-08-06 18:33] LABS: APPEARANCE CLEAR (CLEAR); BILIRUBIN NEGATIVE (NEGATIVE); COLOR YELLOW (YELLOW); GLUCOSE 50 mg/dL (NEGATIVE); KETONE NEGATIVE (NEGATIVE); NITRITE NEGATIVE (NEGATIVE); PROTEIN NEGATIVE (NEGATIVE); UROBILINOGEN NORMAL (NORMAL)
--- NOTE | 2019-08-06 19:00 | NUR ---
BEDSIDE REPORT RECEIVED AND CARE OF PT ASSUMED. PT LYING IN LOW KLINE'S POSITION WATCHING TV. IV TO LEFT FA SALINE LOCKED. TELEMETRY IN PLACE. WILL MONITOR FOR NEEDS.
--- NOTE | 2019-08-06 20:00 | NUR ---
PAGED CR ABDI. RECEIVED ORDER TO START TAMIFLU AND RE-START LINZESS PER PT REQUEST.
[2019-08-06 20:30] VITALS: BP 134/47
--- NOTE | 2019-08-06 20:38 | NUR ---
HS MEDICATIONS GIVEN. FSBS 291 THIS CHECK REQUIRING COVERAGE WITH 6 UNITS OF INSULIN PER SLIDING SCALE. WILL CONTINUE TO MONITOR FOR NEEDS.
[2019-08-07 00:32] VITALS: BP 159/56
[2019-08-07 04:15] VITALS: BP 130/59
[2019-08-07 05:36] LABS: BASOPHILS 0 % (0-2); EOSINOPHILS 0 % (0-7); HEMATOCRIT 32.1 % (36.0-48.0); HEMOGLOBIN 10.2 g/dL (12-16); IMMATURE GRANULOCYTES 0.9 % (0-5); LYMPHOCYTES 9.3 % (15-50); MCHC 31.8 g/dL (31.0-37.0); MCV 88.2 fL (80.0-100.0); MEAN PLATELET VOLUME 9.8 fL (7.4-10.4); NEUTROPHILS 84.8 % (40-80); PLATELET COUNT 291 10x3/uL (130-400); RBC 3.64 10x6/uL (4.00-5.40); RDW 13.5 % (11.5-14.5)
[2019-08-07 05:51] LABS: WBC 6.8 10x3/uL (4.8-10.8)
[2019-08-07 06:10] LABS: ALBUMIN 2.6 g/dL (3.4-5.0); BILIRUBIN - TOTAL 0.23 mg/dL (0.2-1.3); CALCIUM 8.5 mg/dL (8.5-10.1); CARBON DIOXIDE 29.4 mmol/L (21.0-32.0); CREATININE - SERUM 0.9 mg/dL (0.6-1.3); MAGNESIUM - SERUM 2.3 mg/dL (1.8-2.4); PROTEIN - SERUM 5.3 g/dL (6.4-8.2)
[2019-08-07 06:11] LABS: ANION GAP 9.2 mmol/L (8-16); POTASSIUM - SERUM 5.6 mmol/L (3.5-5.1)
[2019-08-07 08:52] VITALS: BP 142/55
--- NOTE | 2019-08-07 09:32 | NUR ---
IN ISOLATION FOR FLU, CONT TO MONITOR COUGH AND RESP STATUS
[2019-08-07 12:34] VITALS: BP 148/62
[2019-08-07 13:42] VITALS: Ht 165.1 cm; Wt 92.1 kg
--- NOTE | 2019-08-07 19:00 | NUR ---
BEDSIDE REPORT RECEIVED AND CARE OF PT ASSUMED. PT LYING IN SUPINE POSITION WATCHING TV. IV TO LEFT FA SALINE LOCKED. TELEMETRY IN PLACE AND READING SR AT THIS ASSESSMENT. O2 IN USE VIA NC AT 2L. WILL MONITOR FOR NEEDS.
--- NOTE | 2019-08-07 20:51 | NUR ---
HS MEDICATIONS GIVEN TO INCLUDE TYLENOL FOR C/O HEADACHE. FSBS 209 THIS CHECK REQUIRING COVERAGE WITH 8 UNITS OF INSULIN PER SLIDING SCALE.
--- NOTE | 2019-08-07 21:00 | NUR ---
GAVE HS SNACK: APPLE JUICE, DIET COKE, AND JOHAN CRACKERS.
[2019-08-07 21:25] VITALS: BP 145/61
[2019-08-08 01:00] VITALS: BP 140/60
[2019-08-08 04:26] LABS: BASOPHILS 0 % (0-2); EOSINOPHILS 0 % (0-7); HEMATOCRIT 33.4 % (36.0-48.0); HEMOGLOBIN 10.8 g/dL (12-16); IMMATURE GRANULOCYTES 1.3 % (0-5); LYMPHOCYTES 7.9 % (15-50); MCH 28.1 pg (26.0-34.0); MCHC 32.3 g/dL (31.0-37.0); MEAN PLATELET VOLUME 10.3 fL (7.4-10.4); MONOCYTES 4.9 % (2-11); NEUTROPHILS 85.9 % (40-80); PLATELET COUNT 336 10x3/uL (130-400); RBC 3.84 10x6/uL (4.00-5.40); RDW 13.5 % (11.5-14.5); WBC 7.8 10x3/uL (4.8-10.8)
[2019-08-08 04:59] LABS: ALBUMIN 2.7 g/dL (3.4-5.0); BILIRUBIN - TOTAL 0.27 mg/dL (0.2-1.3); CALCIUM 8.4 mg/dL (8.5-10.1); CARBON DIOXIDE 31.8 mmol/L (21.0-32.0); PHOSPHOROUS 3.8 mg/dL (2.5-4.9); PROTEIN - SERUM 5.9 g/dL (6.4-8.2)
[2019-08-08 05:02] LABS: ANION GAP 10.9 mmol/L (8-16); CREATININE - SERUM 1.2 mg/dL (0.6-1.3); POTASSIUM - SERUM 4.7 mmol/L (3.5-5.1)
[2019-08-08 05:22] VITALS: BP 136/60
--- NOTE | 2019-08-08 07:24 | MORECARE ---
CASE MANAGEMENT DISCHARGE SUMMARY PATIENT: MARYBETH GEE WINTER UNIT: [id number] ADM DATE: 08/05/19 AGE: 79 : 42 SEX: F ROOM/BED: D.2224 AUTHOR: DREW VASQUEZ PHYSICIAN: REFERRING PHYSICIAN: LEONARDA DEVLIN MD DATE OF SERVICE: 08/08/19 Discharge Plan Patient Name: MARYBETH GEE Facility: [facility]:[place] : 1940 Planned Disposition: Home Anticipated Discharge Date: Discharge Date: Expected LOS: Initial Reviewer: [email or web address] Initial Review Date: 08/08/2019 Generated: 08/08/19 8:23 am Patient Name: MARYBETH GEE Page [id number] at 0724 All edits/amendments must be made on the electronic document DICTATION DATE: 08/08/19722 TITLE 1 TUTOR: ERIKA 08/08/19722 RPT#: [id number] DC DATE: STATUS: ADM IN [facility] [address] [place] [address] END OF REPORT
--- NOTE | 2019-08-08 07:31 | MORECARE ---
CASE MANAGEMENT DISCHARGE SUMMARY PATIENT: GILA GEE UNIT: [id number] ADM DATE: 08/05/19 AGE: 79 : 42 SEX: F ROOM/BED: D.2224 AUTHOR: CHRISTINA,DOC PHYSICIAN: REFERRING PHYSICIAN: LEONARDA DEVLIN MD DATE OF SERVICE: 08/08/19 Discharge Plan Patient Name: GILA GEE Facility: [facility]:[place] : 1940 Planned Disposition: Home Anticipated Discharge Date: Discharge Date: Expected LOS: Initial Reviewer: [email or web address] Initial Review Date: 08/08/2019 Generated: 08/08/19 8:30 am Comments DCP- Discharge Planning Updated by [email or web address]: Yaquelin Calvo on 08/08/19 6:[address] Patient Name: GILA GEE Admission Status: Elective Accout number: [id number] Admission Date: 08-05-2019 : 1940 Admission Diagnosis: Attending: LEONARDA DEVLIN Current LOS: 3 Anticipated DC Date: Planned Disposition: Home Primary Insurance: [facility] MEDICARE SOLUTIONS Discharge Planning Comments: CM met with patient to complete initial dc planning assessment. CM educated patient on the CM role and verbal consent given by patient to complete assessment. Patient lives at [address] [place] [address] with her daughter, Anushka. At discharge patient plans to return and feels this is a safe discharge. States she has 5 daughters and she takes turns on living with each of them. CM discussed availability of home health, rehab services, and medical equipment. Patient denied known discharge needs at this time. I informed patient that she may need oxygen on discharge if she qualifies. She states she cannot afford it if insurance does not pay for the oxygen. I will get an order for a walk test prior to discharge. FARZANA for [employer] signed. There is a [facility] in [place] as well as [place]. CM will continue to follow and will assist as needed with dc plans/needs. Component Assembler: Yaquelin Calvo DCPIA - Discharge Planning Initial Assessment Updated by [id number]: Yaquelin Calvo on 08/08/19 7:27 am * Is the patient Alert and Oriented? Yes * How many steps to enter\exit or inside your home? 0/0 * PCP Dr. Villalba * Pharmacy [facility] in [place] * Preadmission Environment Home with Family * ADLs Independent * Equipment Cane Glucometer Nebulizer Other * Other Equipment Blood Pressure machine * List name and contact numbers for known caregivers / representatives who currently or will assist patient after discharge: Anushka Ritter - DTR - [phone] Gila Palumbo - DTR - [phone] Nadja Kirkland - Grand daughter - [phone] * Verbal permission to speak to the caregivers and representatives has been obtained from the patient. Yes * Community resources currently utilized None * Additional services required to return to the preadmission environment? No * Can the patient safely return to the preadmission environment? Yes * Has this patient been hospitalized within the prior 30 days at any hospital? Yes Last DP export: 08/08/19 6:24 a Patient Name: GILA GEE Page 53474 at 0731 All edits/amendments must be made on the electronic document DICTATION DATE: 08/08/19729 SECURITY DISPATCHER: ERIKA 08/08/19729 RPT#: [id number] DC DATE: STATUS: ADM IN [facility] [address] [place] [address] END OF REPORT
--- NOTE | 2019-08-08 08:02 | NUR ---
ALERT AND ORIENTED. LUNGS CLEAR BILATERALLY. HEART SOUNDS S1 AND S2 HEARD IN ALL LIRA. BOWEL SOUNDS ACTIVE X 4. SKIN INTACT WITHOUT REDNESS. IV TO LFA PATENT WITHOUT REDNESS. BED LOW. CALL HOLLIS AND PERSONAL ITEMS IN REACH. WILL CONTINUE TO MONITOR.
[2019-08-08 09:33] VITALS: BP 128/70
--- NOTE | 2019-08-08 11:41 | NUR ---
RESTING IN BED. DENIES NEEDS. WILL CONTINUE TO MONITOR.
--- NOTE | 2019-08-08 11:58 | MORECARE ---
CASE MANAGEMENT DISCHARGE SUMMARY PATIENT: GILA GEE UNIT: [id number] ADM DATE: 08/05/19 AGE: 79 : 42 SEX: F ROOM/BED: D.2224 AUTHOR: CHRISTINA,DOC PHYSICIAN: REFERRING PHYSICIAN: LEONARDA DEVLIN MD DATE OF SERVICE: 08/08/19 Discharge Plan Patient Name: GILA GEE Facility: [facility]:[place] : 1940 Planned Disposition: Home Anticipated Discharge Date: Discharge Date: Expected LOS: Initial Reviewer: [email or web address] Initial Review Date: 08/08/2019 Generated: 08/08/19 12:58 pm Comments DCP- Discharge Planning Updated by [email or web address]: Yaquelin Calvo on 08/08/19 10:[address] Patient's resting room air saturation and during exertion is 95%. I received an order for overnight pulse oximeter and informed Rolo with [employer]. CM will continue to follow and assist with discharge planning/needs. DCP- Discharge Planning Updated by [id number]: Yaquelin Calvo on 08/08/19 6:[address] Patient Name: GILA GEE Admission Status: Elective Accout number: [id number] Admission Date: 08-05-2019 : 1940 Admission Diagnosis: Attending: LEONARDA DEVLIN Current LOS: 3 Anticipated DC Date: Planned Disposition: Home Primary Insurance: [facility] MEDICARE SOLUTIONS Discharge Planning Comments: CM met with patient to complete initial dc planning assessment. CM educated patient on the CM role and verbal consent given by patient to complete assessment. Patient lives at [address] [place] [address] with her daughter, Anushka. At discharge patient plans to return and feels this is a safe discharge. States she has 5 daughters and she takes turns on living with each of them. CM discussed availability of home health, rehab services, and medical equipment. Patient denied known discharge needs at this time. I informed patient that she may need oxygen on discharge if she qualifies. She states she cannot afford it if insurance does not pay for the oxygen. I will get an order for a walk test prior to discharge. FARZANA for [employer] signed. There is a [facility] in [place] as well as [place]. CM will continue to follow and will assist as needed with dc plans/needs. Extruding Department Supervisor: Yaquelin Calvo DCPIA - Discharge Planning Initial Assessment Updated by [email or web address]: Yaquelin Calvo on 08/08/19 7:27 am * Is the patient Alert and Oriented? Yes * How many steps to enter\exit or inside your home? 0/0 * PCP Dr. Villalba * Pharmacy [facility] in [place] * Preadmission Environment Home with Family * ADLs Independent * Equipment Cane Glucometer Nebulizer Other * Other Equipment Blood Pressure machine * List name and contact numbers for known caregivers / representatives who currently or will assist patient after discharge: Anushka Ritter - DTR - [phone] Gila Morrisannie - R - [phone] Nadjabrian Kirkland - [facility] daughter - [phone] * Verbal permission to speak to the caregivers and representatives has been obtained from the patient. Yes * Community resources currently utilized None * Additional services required to return to the preadmission environment? No * Can the patient safely return to the preadmission environment? Yes * Has this patient been hospitalized within the prior 30 days at any hospital? Yes External Providers External Provider: Derrell Next Contact Date: Service Request Date: Service Type: Resolution: Reviewer: Comments: Coverage Notice Reviewer: [id number] - Yaquelin Calvo Notice Issued Date-Time: 08/08/2019 7:31 Notice Type: Patient Choice Letter Notice Delivered To: Patient Relationship to Patient: Self Soaker Helper Name: Delivery Method: HAND - Hand Delivered Kiya Days: Prior Verbal Notification: Recipient Understood Notice: Yes Recipient Signature: Yes Med Rec Note Co-signed by Attending: Coverage Notice Comment: FARZANA for [employer] Last DP export: 08/08/19 6:31 a Patient Name: GILA GEE Page 11205 at 1158 All edits/amendments must be made on the electronic document DICTATION DATE: 08/08/19 115 MERCHANDISE FLOW TEAM LEADER: ERIKA 08/08/19 1158 RPT#: [id number] DC DATE: STATUS: ADM IN [facility] [address] [place] [address] END OF REPORT
[2019-08-08 13:21] VITALS: BP 131/69
--- NOTE | 2019-08-08 15:04 | NUR ---
Nutrition follow-up: Diet: ADA consistent CHO PO intake 75% of meals, snacks Wt: 202# Labs reviewed PO intake good at this time RDN following.
--- NOTE | 2019-08-08 16:31 | NUR ---
OT NOTE: PT COMPLETED BED MOB WITH MOD I. PT COMPLETED SIT TO STAND WITH MOD I/SPV. PT COMPLETED ADL MOB WITH CAN REQUIRED CGA. PT COMPLETED UB HYGIENE WITH SET UP. 105-129 THANK YOU,MIKA RAZA
[2019-08-08 16:45] VITALS: BP 127/53
--- NOTE | 2019-08-08 18:03 | NUR ---
RESTING IN BED. DENIES NEEDS. BED LOW. CALL HOLLIS AND PERSONAL ITEMS IN REACH.
[2019-08-08 20:41] VITALS: BP 147/66
[2019-08-09 02:53] VITALS: BP 105/54
--- NOTE | 2019-08-09 03:19 | NUR ---
PT RESTING IN BED. EYES CLOSED. NO SIGNS OF DISTRESS. BREATHING EVEN AND UNLABORED. IV SITE LT FA DRESSING CLEAN DRY AND INTACT. NO SIGNS OF INFECTION OR INFULTRATION. SKIN CLEAN DRY AND INTACT. 2LO2 NASAL CANNULA. WILL CONTINUE PLAN OF CARE. CALL LIGHT IN REACH. BED LOWERED AND LOCKED.
--- NOTE | 2019-08-09 05:02 | NUR ---
I have reviewed this patient and I concur with the Shift Assessment completed by the Licensed Practical Nurse today this shift.
[2019-08-09 05:57] VITALS: BP 135/56
[2019-08-09] MEDS ORDERED: PREDNISONE10 MG PO (07:51)
[2019-08-09] MEDS ORDERED: LEVOFLOXACIN500 MG PO (07:52)
--- NOTE | 2019-08-09 08:46 | MORECARE ---
CASE MANAGEMENT DISCHARGE SUMMARY PATIENT: GILA GEE UNIT: [id number] ADM DATE: 08/05/19 AGE: 79 : 42 SEX: F ROOM/BED: D.2224 AUTHOR: CHRISTINA,DOC PHYSICIAN: REFERRING PHYSICIAN: LEONARDA DEVLIN MD DATE OF SERVICE: 08/09/19 Discharge Plan Patient Name: GILA GEE Facility: [facility]:[place] : 1940 Planned Disposition: Home Anticipated Discharge Date: Discharge Date: Expected LOS: Initial Reviewer: [email or web address] Initial Review Date: 08/08/2019 Generated: 08/09/19 9:46 am Comments DCP- Discharge Planning Updated by [email or web address]: Yaquelin Calvo on 08/09/19 7:[address] Patient Name: GILA GEE Encounter No: [id number] : 1940 Primary Insurance: [facility] MEDICARE SOLUTIONS Anticipated DC Date: Planned Disposition: Home External Planned Provider: : DCP follow-up note: Patient in agreement with discharge plan. No changes to plan. She has her overnight pulse ox in the room to take home for [facility] duncan following. Case management will follow and assist as needed. Yaquelin Umesh DCP- Discharge Planning Updated by [email or web address]: Yaquelin Umesh on 08/08/19 10:[address] Patient's resting room air saturation and during exertion is 95%. I received an order for overnight pulse oximeter and informed Rolo with [employer]. CM will continue to follow and assist with discharge planning/needs. DCP- Discharge Planning Updated by [email or web address]: Yaquelin Calvo on 08/08/19 6:[address] Patient Name: GILA GEE Admission Status: Elective Accout number: [id number] Admission Date: 08-05-2019 : 1940 Admission Diagnosis: Attending: ELONARDA DEVLIN Current LOS: 3 Anticipated DC Date: Planned Disposition: Home Primary Insurance: [facility] MEDICARE SOLUTIONS Discharge Planning Comments: CM met with patient to complete initial dc planning assessment. CM educated patient on the CM role and verbal consent given by patient to complete assessment. Patient lives at [address] [place] [address] with her daughter, Anushka. At discharge patient plans to return and feels this is a safe discharge. States she has 5 daughters and she takes turns on living with each of them. CM discussed availability of home health, rehab services, and medical equipment. Patient denied known discharge needs at this time. I informed patient that she may need oxygen on discharge if she qualifies. She states she cannot afford it if insurance does not pay for the oxygen. I will get an order for a walk test prior to discharge. FARZANA for [employer] signed. There is a [employer] in [place] as well as [place]. CM will continue to follow and will assist as needed with dc plans/needs. Garment Mender: Yaquelin Calvo DCPIA - Discharge Planning Initial Assessment Updated by [email or web address]: Yaquelin Calvo on 08/08/19 7:27 am * Is the patient Alert and Oriented? Yes * How many steps to enter\exit or inside your home? 0/0 * PCP Dr. Villalba * Pharmacy [facility] in [place] * Preadmission Environment Home with Family * ADLs Independent * Equipment Cane Glucometer Nebulizer Other * Other Equipment Blood Pressure machine * List name and contact numbers for known caregivers / representatives who currently or will assist patient after discharge: Anushka Ritter - DTR - [phone] Gila Palumbo - DTR - [phone] Nadja Kirkland - Grand daughter - [phone] * Verbal permission to speak to the caregivers and representatives has been obtained from the patient. Yes * Community resources currently utilized None * Additional services required to return to the preadmission environment? No * Can the patient safely return to the preadmission environment? Yes * Has this patient been hospitalized within the prior 30 days at any hospital? Yes Coverage Notice Reviewer: [email or web address] Casa Calvo Notice Issued Date-Time: 08/08/2019 7:31 Notice Type: Patient Choice Letter Notice Delivered To: Patient Relationship to Patient: Self Physician Practice Administrator Name: Delivery Method: HAND - Hand Delivered Kiya Days: Prior Verbal Notification: Recipient Understood Notice: Yes Recipient Signature: Yes Med Rec Note Co-signed by Attending: Coverage Notice Comment: FARZANA nilda Obregon Reviewer: [email or web address] Casa Calvo Notice Issued Date-Time: 08/08/2019 12:05 Notice Type: IM Discharge Notice Notice Delivered To: Patient Relationship to Patient: Self Physician Practice Administrator Name: Delivery Method: HAND - Hand Delivered Kiya Days: Prior Verbal Notification: Recipient Understood Notice: Yes Recipient Signature: Yes Med Rec Note Co-signed by Attending: Coverage Notice Comment: IMM explained, signed, given, copy placed in MR Last DP export: 08/08/19 10:58 a Patient Name: GILA GEE Page 87569 at 0846 All edits/amendments must be made on the electronic document DICTATION DATE: 08/09/19845 SLEEVE SETTER SAFETY STITCH: ERIKA 08/09/19845 RPT#: [id number] DC DATE: STATUS: ADM IN [facility] [address] [place] [address] END OF REPORT
[2019-08-09 09:33] LABS: BASOPHILS 0.1 % (0-2); EOSINOPHILS 0.1 % (0-7); IMMATURE GRANULOCYTES 1.3 % (0-5); LYMPHOCYTES 27.4 % (15-50); MCH 28.6 pg (26.0-34.0); MCHC 32.5 g/dL (31.0-37.0); MEAN PLATELET VOLUME 9.9 fL (7.4-10.4); MONOCYTES 7.8 % (2-11); NEUTROPHILS 63.3 % (40-80); PLATELET COUNT 385 10x3/uL (130-400); RBC 4.58 10x6/uL (4.00-5.40); RDW 13.6 % (11.5-14.5); WBC 10.2 10x3/uL (4.8-10.8)
[2019-08-09 09:34] LABS: HEMATOCRIT 40.3 % (36.0-48.0); HEMOGLOBIN 13.1 g/dL (12-16)
[2019-08-09 09:37] VITALS: BP 123/56
[2019-08-09 09:56] LABS: ALBUMIN 3.3 g/dL (3.4-5.0); ANION GAP 10.7 mmol/L (8-16); BILIRUBIN - TOTAL 0.43 mg/dL (0.2-1.3); CALCIUM 8.7 mg/dL (8.5-10.1); CREATININE - SERUM 1.2 mg/dL (0.6-1.3); PHOSPHOROUS 3.8 mg/dL (2.5-4.9); PROTEIN - SERUM 6.9 g/dL (6.4-8.2)
[2019-08-09 09:57] LABS: POTASSIUM - SERUM 3.7 mmol/L (3.5-5.1)
--- NOTE | 2019-08-09 09:59 | NUR ---
DISCHARGE EDUCATION PROVIDED BOTH WRITTEN AND VERBAL. VERBALIZED UNDERSTANDING. DENIES FURTHER QUESTIONS. IV REMOVED FROM LFA WITH TIP INTACT. PATIENT GIVEN COPY OF INSULIN SS USED IN HOSPITAL PER REQUEST. DENIES FURTHER NEEDS. WAITING FOR FAMILY TO MARKET RELATIONSHIP MANAGER.
--- NOTE | 2019-08-09 11:04 | NUR ---
PATIENT DC HOME WITH FAMILY WITH ALL BELONGINGS.
[2019-08-09 13:10] LABS: PROCALCITONIN 0.05 ng/mL (0.00-0.08)
--- NOTE | 2019-08-10 14:38 | MORECARE ---
CASE MANAGEMENT DISCHARGE SUMMARY PATIENT: GILA GEE UNIT: [id number] ADM DATE: 08/05/19 AGE: 79 : 44 SEX: F ROOM/BED: D.2224 AUTHOR: CHRISTINA,DOC PHYSICIAN: REFERRING PHYSICIAN: LEONARDA DEVLIN MD DATE OF SERVICE: 08/10/19 Discharge Plan Patient Name: GILA GEE Facility: [facility]:[place] : 1940 Planned Disposition: Home Anticipated Discharge Date: Discharge Date: 08/09/2019 Expected LOS: Initial Reviewer: [email or web address] Initial Review Date: 08/08/2019 Generated: 08/10/19 3:38 pm Comments DCP- Discharge Planning Updated by [email or web address]: Yaquelin Calvo on 08/09/19 7:[address] Patient Name: GILA GEE Encounter No: [id number] : 1940 Primary Insurance: [facility] [employer] Anticipated DC Date: Planned Disposition: Home External Planned Provider: : DCP follow-up note: Patient in agreement with discharge plan. No changes to plan. She has her overnight pulse ox in the room to take home for [facility] duncan following. Case management will follow and assist as needed. Yaquelin Calvo DCP- Discharge Planning Updated by [email or web address]: Yaquelin Calvo on 08/08/19 10:[address] Patient's resting room air saturation and during exertion is 95%. I received an order for overnight pulse oximeter and informed Rolo with [facility]. CM will continue to follow and assist with discharge planning/needs. DCP- Discharge Planning Updated by [email or web address]: Yaquelin Calvo on 08/08/19 6:[address] Patient Name: GILA GEE Admission Status: Elective Accout number: [id number] Admission Date: 08-05-2019 : 1940 Admission Diagnosis: Attending: LEONARDA DEVLIN Current LOS: 3 Anticipated DC Date: Planned Disposition: Home Primary Insurance: [facility] [employer] Discharge Planning Comments: CM met with patient to complete initial dc planning assessment. CM educated patient on the CM role and verbal consent given by patient to complete assessment. Patient lives at [address] [place], [place] [address] with her daughter, Anushka. At discharge patient plans to return and feels this is a safe discharge. States she has 5 daughters and she takes turns on living with each of them. CM discussed availability of home health, rehab services, and medical equipment. Patient denied known discharge needs at this time. I informed patient that she may need oxygen on discharge if she qualifies. She states she cannot afford it if insurance does not pay for the oxygen. I will get an order for a walk test prior to discharge. FARZANA for [facility] signed. There is a [facility] in [place] as well as [place]. CM will continue to follow and will assist as needed with dc plans/needs. Internal Controls Specialist: Yaquelin Calvo DCPIA - Discharge Planning Initial Assessment Updated by [email or web address]: Yaquelin Calvo on 08/08/19 7:27 am * Is the patient Alert and Oriented? Yes * How many steps to enter\exit or inside your home? 0/0 * PCP Dr. Villalba * Pharmacy [facility] in [place] * Preadmission Environment Home with Family * ADLs Independent * Equipment Cane Glucometer Nebulizer Other * Other Equipment Blood Pressure machine * List name and contact numbers for known caregivers / representatives who currently or will assist patient after discharge: Anushka Ritter - DTR - [phone] Gila Palumbo - DTR - [phone] Nadja Kirkland - Grand daughter - [phone] * Verbal permission to speak to the caregivers and representatives has been obtained from the patient. Yes * Community resources currently utilized None * Additional services required to return to the preadmission environment? No * Can the patient safely return to the preadmission environment? Yes * Has this patient been hospitalized within the prior 30 days at any hospital? Yes Coverage Notice Reviewer: [email or web address] [place] Notice Issued Date-Time: 08/08/2019 7:31 Notice Type: Patient Choice Letter Notice Delivered To: Patient Relationship to Patient: Self Corporate Training Manager Name: Delivery Method: HAND - Hand Delivered Kiya Days: Prior Verbal Notification: Recipient Understood Notice: Yes Recipient Signature: Yes Med Rec Note Co-signed by Attending: Coverage Notice Comment: FARZANA nilda Obregon Reviewer: [id number] [facility] [place] Notice Issued Date-Time: 08/08/2019 12:05 Notice Type: IM Discharge Notice Notice Delivered To: Patient Relationship to Patient: Self Corporate Training Manager Name: Delivery Method: HAND - Hand Delivered Kiya Days: Prior Verbal Notification: Recipient Understood Notice: Yes Recipient Signature: Yes Med Rec Note Co-signed by Attending: Coverage Notice Comment: IMM explained, signed, given, copy placed in MR Last DP export: 08/09/19 7:46 a Patient Name: GILA GEE Page [id number] at 1438 All edits/amendments must be made on the electronic document DICTATION DATE: 08/10/19 1438 ESTATE MANAGER: ERIKA 08/10/19 1438 RPT#: [id number] DC DATE:08/09/19 STATUS: DIS IN [facility] [address] [place] [address] END OF REPORT
== END 2019-08-09 11:05 | disposition home or self-care (01) | DRG 193 ==
LOC: D.MS 13:09
PROVIDERS: Internal Medicine Pulmonary Disease; ADMIT Internal Medicine Nephrology; ATTEND Internal Medicine Nephrology
DX: J10.00 Influenza due to other identified influenza virus with unspecified type of pneumonia (principal); J96.01 Acute respiratory failure with hypoxia; J44.1 Chronic obstructive pulmonary disease with (acute) exacerbation; I50.32 Chronic diastolic (congestive) heart failure; J44.0 Chronic obstructive pulmonary disease with (acute) lower respiratory infection; J90 Pleural effusion, not elsewhere classified; I11.0 Hypertensive heart disease with heart failure; E03.9 Hypothyroidism, unspecified; M19.90 Unspecified osteoarthritis, unspecified site; K21.9 Gastro-esophageal reflux disease without esophagitis; E11.65 Type 2 diabetes mellitus with hyperglycemia; K58.1 Irritable bowel syndrome with constipation; J20.9 Acute bronchitis, unspecified; D64.9 Anemia, unspecified

== ENCOUNTER → 2020-01-26 10:28 | Outpatient (CLI) | payer MEDICARE ==
[2019-08-07 13:42] VITALS: BMI 33.7
== END | disposition home or self-care (01) ==
LOC: D.LAB 10:28
PROVIDERS: ATTEND Internal Medicine Pulmonary Disease
DX: Z11.59 Encounter for screening for other viral diseases (principal)

== ENCOUNTER → 2020-01-29 14:26 | Outpatient (CLI) | payer MEDICARE ==
[2019-08-07 13:42] VITALS: BMI 33.7
[2020-01-31 21:07] LABS: ASPERGILLUS - FLAVUS Negative (Neg:<1:1); ASPERGILLUS - FUMIGATUS Negative (Neg:<1:1); ASPERGILLUS - NIGER Negative (Neg:<1:1)
== END | disposition home or self-care (01) ==
LOC: D.RT 14:26
PROVIDERS: ATTEND Internal Medicine Pulmonary Disease
DX: J44.1 Chronic obstructive pulmonary disease with (acute) exacerbation (principal); Z87.01 Personal history of pneumonia (recurrent)

== ENCOUNTER → 2020-02-21 11:55 | Outpatient (CLI) | payer MEDICARE ==
[2019-08-07 13:42] VITALS: BMI 33.7
== END | disposition home or self-care (01) ==
LOC: D.US 11:55
PROVIDERS: ATTEND Family Medicine
DX: R60.0 Localized edema (principal)

== ENCOUNTER 2020-12-20 11:30 | Outpatient (CLI) | payer MEDICARE ==
[2019-08-07 13:42] VITALS: BMI 33.7
== END 2020-12-20 23:59 | disposition home or self-care (01) ==
LOC: D.MAMMO 11:30
PROVIDERS: ATTEND Family Medicine
DX: Z12.31 Encounter for screening mammogram for malignant neoplasm of breast (principal)